=== PATIENT | female | born 1995 | race Caucasian/White ===

== ENCOUNTER 2023-11-20 16:44 | Emergency (ER) | payer MEDICAID, SELFPAY ==
[2023-11-20 16:47] VITALS: BP 134/87; PULSE 82; RESP 16; TEMP 36.4; O2SAT 98; BMI 29.3
--- NOTE | 2023-11-20 18:00 | CRLHL7_ITS ---
For Patients: As a result of the Century Cures Act, medical imaging exams and procedure reports are released immediately into your electronic medical record. You may view this report before your referring provider. If you have questions, please contact your health care provider. 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 No suspicious hepatic lesions. The gallbladder and biliary system are unremarkable. No splenic lesions. Small splenule in the left upper quadrant. The pancreas and bilateral adrenal glands are unremarkable. The kidneys, ureters, and bladder are unremarkable. Postsurgical changes of hysterectomy. The right ovary appears within normal limits with a few peripheral follicles and a dominant follicle measuring approximately 2.0 centimeters in greatest dimension. The left ovary is not well appreciated on this exam. There is no evidence of bowel obstruction or inflammation. The appendix is normal in appearance. Trace free fluid in the pelvis, likely physiologic. No free air. No abscess. No pathologically enlarged lymph nodes throughout the abdomen or pelvis. The vasculature is unremarkable. Soft tissue/musculoskeletal: Small fat containing umbilical hernia. The osseous structures are unremarkable. Impression: 1. Trace free fluid in the dependent aspect of the pelvis, likely physiologic; otherwise, no CT evidence of an acute process involving the abdomen or pelvis. 2. No evidence of bowel obstruction or inflammation. 3. Incidental findings as detailed above. Please note that all CT scans at this facility use dose modulation, iterative reconstruction, and/or weight-based dosing when appropriate to reduce radiation dose to as low as reasonably achievable. Dictated by Jesus Levy MD @ 11/20/2023 8:08:12 PM (Electronically Signed)
--- NOTE | 2023-11-20 18:01 | ED.ABDPAIN ---
HPI - Abdominal Pain General Chief Complaint: Abdominal Pain Stated Complaint: stomach/chest pain Time Seen by Provider: 11/20/23 16:47 History of Present Illness HPI narrative: This 28-year-old female comes in reporting abdominal pain that has been present over the past 2 or 3 weeks but worse over the past 2-3 days. She has history of surgeries to her abdomen. She states that she has a [id number] child in there were complications after the delivery where she needed AD and C. This cause some problem somehow also to where she ended up having a hysterectomy. 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 She did have 1 ovary removed in 1 of the surgeries. Her last surgery was a couple months ago. She has not been taking any medicine for pain. She does not report any fevers, dysuria, altered bowel function. She does have some nausea but no vomiting. She states that the pain is rather constant. She ranks the pain at 7 or 8/10 in severity. Related Data Home Medications ?Medication ?Instructions ?Recorded ?Confirmed No Known Home Medications 11/20/23 11/20/23 Allergies Allergy/AdvReac Type Severity Reaction Status Date / Time No Known Drug Allergies Allergy Verified 11/20/23 16:52 Review of Systems Status of ROS Reports: 10 or more systems reviewed and unremarkable except as noted in History and below Narrative Constitutional: No fevers, no weight gain or loss. Eyes: No discharge. No vision changes. HENT: No congestion, no sore throat, no ear pain. Cardiovascular: No chest pain, no palpitations. Respiratory: No shortness of breath, no wheezes, no cough. Gastrointestinal: No abdominal pain as described above. vomiting, no diarrhea. Genitourinary: No dysuria, no hematuria. Musculoskeletal: Normal range of motion. Skin: No rashes, no pruritis. Neurological: No dizziness, weakness, sensory change, speech change. Endo/Heme/Allergies: No bruising or bleeding. No polydipsia. Pysch: no suicidality, no anxiety, no insomnia. All other systems reviewed and are negative. PFSH PFSH Social History Smoking Status: Unknown if ever smoked Do you use any of these nicotine containing products: None How often do you have a drink containing alcohol: never How often do you have six or more drinks on one occasion: Never AUDIT-C Alcohol total score: 0 Non-prescribed substance use: denies use Exam Narrative: Exam Narrative: Constitutional: Well-developed, well-nourished, no acute distress. HEENT: Normocephalic, atraumatic. Neck: Normal range of motion. Nontender. Supple. Heart: Regular. No murmurs. Normal rate. Intact distal pulses. Lungs: Clear to auscultation. No chest discomfort. No wheezes, rhonchi, or rales. Abdomen: Normal bowel sounds. Tenderness localized in the left mid abdomen. Her pain radiates up toward her left chest when taking a deep breath. Mild rebound tenderness. Genitalia: Deferred. Back: No midline tenderness. Normal range of motion. Extremities: Normal range of motion. No injury. Skin: Intact. No rash. Warm. No erythema or pallor. Neurologic: No altered sensation. No weakness. Alert and oriented. Psychiatric: No suicidality. No anxiety or depression. No insomnia. Nursing notes and vitals signs are reviewed. Const: Vital Signs, click to edit/add: Vital Signs - 24 hr 11/20/23 16:47 Temperature 97.5 F L Pulse Rate [Pulse Oximeter] 82 Respiratory Rate 16 Blood Pressure [Ri t Upper Arm] 134/87 Pulse Oximetry 98 Oxygen Delivery Me thod Room Air Course Vital Signs Vital signs: Initial Vital Signs Temperature 97.5 F L 11/20/23 16:47 Temperature Source Temporal Artery Scan 11/20/23 16:47 Pulse Rate 82 11/20/23 16:47 Pulse Rhythm Regular 11/20/23 16:47 Pulse Strength 3+ Normal 11/20/23 16:47 Respiratory Rate 16 11/20/23 16:47 Blood Pressure 134/87 11/20/23 16:47 Blood Pressure Mean 102 11/20/23 16:47 Blood Pressure Position Sitting 11/20/23 16:47 Pulse Oximetry 98 11/20/23 16:47 Oxygen Delivery Method Room Air 11/20/23 16:47 Vital Signs Temperature 97.5 F L 11/20/23 16:47 Pulse Rate 82 11/20/23 16:47 Respiratory Rate 16 11/20/23 16:47 Blood Pressure 134/87 11/20/23 16:47 Pulse Oximetry 98 11/20/23 16:47 Oxygen Delivery Method Room Air 11/20/23 16:47 Temperature 97.5 F L 11/20/23 16:47 Pulse Rate 82 11/20/23 16:47 Respiratory Rate 16 11/20/23 16:47 Blood Pressure 134/87 11/20/23 16:47 Pulse Oximetry 98 11/20/23 16:47 Oxygen Delivery Method Room Air 11/20/23 16:47 Medications Administered Medications: Discontinued Medications Generic Name Dose Route Start Last Admin Trade Name Wyatt PRN Reason Stop Dose Admin Ketorolac Tromethamine 15 mg 11/20/23 18:00 11/20/23 18:15 Ketorolac 30 Mg/Ml Inj IVP 11/20/23 18:01 15 mg ONCE ONE Administration Ondansetron HCl 4 mg 11/20/23 18:00 11/20/23 18:16 Ondansetron 2 Mg/Ml Inj IVP 11/20/23 18:01 4 mg ONCE ONE Administration MDM - Abdominal Pain MDM Narrative Medical decision making narrative: This patient comes in with worsening abdominal pain and has a surgical history as described above. I did look with bedside ultrasound and then also obtained images through CT scan of abdomen and pelvis with IV contrast. All these results returned with normal findings along with normal blood tests. 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 This may be what is causing her pain currently again. The patient is okay to be discharged home and plans to follow-up with her primary providers. I did provide [employer] as for Zofran, Toradol, and Carlton. Lab Data Labs: Lab Results 11/20/23 Range/Units 18:14 WBC 8.13 (4.50-11.00) K/uL RBC 4.41 (4.00-5.20) m/uL Hgb 13.0 (12.0-16.0) gm/dL Hct 39.7 (33.0-51.0) % MCV 90 (80-100) fL MCH 30 (26-34) pg MCHC 33 (32-36) gm/dL RDW Coeff of Susy 12.8 (11.5-15.5) % Plt Count 238 (140-440) K/uL Neut % (Auto) 67.4 (42.0-72.0) % Lymph % (Auto) 25.1 (20-44) % Nye % (Auto) 6.0 (0.0-11.0) % Eos % (Auto) 1.2 (0.0-7.0) % Baso % (Auto) 0.2 (0.0-3.0) % Neut # (Auto) 5.47 (1.7-7.0) K/uL Lymph # (Auto) 2.04 (0.90-2.90) K/uL Nye # (Auto) 0.50 (0.00-0.90) K/UL Eos # (Auto) 0.10 (0.00-0.50) K/uL Baso # (Auto) 0.02 (0.00-0.30) K/uL Abs Immat Gran (auto) 0.01 (0.00-0.30) K/uL Imm/Tot Granulo (auto) 0.1 % Sodium 138 (135-149) mmol/L Potassium 3.7 (3.6-5.1) mmol/L Chloride 108 (96-114) mmol/L Carbon Dioxide 21 (20-32) mmol/L Anion Gap 9 (7-15) mEq/L BUN 10 (5-24) mg/dL Creatinine 0.5 (0.5-1.5) mg/dL Estimated Creat Clear 162.90 Estimated GFR 131 ml/min Glucose 94 (60-115) mg/dL Calcium 8.9 (8.4-10.6) mg/dL Imaging Data CT scan - abdomen: Radiologist's impression: 1. Trace free fluid in the dependent aspect of the pelvis, likely physiologic; otherwise, no CT evidence of an acute process involving the abdomen or pelvis. 2. No evidence of bowel obstruction or inflammation. 3. Incidental findings as detailed above. Discharge Plan Discharge Clinical Impression: Abdominal pain Patient Disposition: Home, Self-Care Condition: Stable Additional Instructions: Take medication as needed and indicated. Follow-up with primary physicians. Return if worsening. Prescriptions: No Action No Known Home Medications Follow Up/Referrals: Provider,Not a Local [Primary Care Provider] - Stand Alone Forms: [employer] Info Instructions Procedures Ultrasound Biliary exam #1: Anatomical areas examined: gallbladder, long and short axis and common bile duct Indications: RUQ/epigastric pain Exam type: limited abdominal ultrasound; RUQ Impression: normal exam Description/Findings: Screening ultrasound of the upper abdomen shows no abnormal findings.
[2023-11-20] MEDS: KETOROLAC 30 MG/ML inj 15 MG IVP (18:15)
[2023-11-20] MEDS: ONDANSETRON 2 MG/ML inj 4 MG IVP (18:16)
[2023-11-20 18:20] LABS: Basophils Absolute Auto 0.02 K/uL (0.00-0.30); Basophils Percent Auto 0.2 % (0.0-3.0); Eosinophils Percent Auto 1.2 % (0.0-7.0); Hematocrit 39.7 % (33.0-51.0); Immature Granulocytes Abs Auto 0.01 K/uL (0.00-0.30); Immature Granulocytes Pct Auto 0.1 %; Lymphocytes Absolute Auto 2.04 K/uL (0.90-2.90); Lymphocytes Percent Auto 25.1 % (20-44); Mean Corpuscular HGB Conc 33 gm/dL (32-36); Mean Corpuscular Hemoglobin 30 pg (26-34); Mean Corpuscular Volume 90 fL (80-100); Neutrophils Absolute Auto 5.47 K/uL (1.7-7.0); Neutrophils Percent Auto 67.4 % (42.0-72.0); Platelet Count* 238 K/uL (140-440); RDW Coefficient of Variation % 12.8 % (11.5-15.5); Red Blood Count 4.41 m/uL (4.00-5.20); Slide Review Reflex No; White Blood Count* 8.13 K/uL (4.50-11.00)
[2023-11-20 18:32] LABS: Chloride* 108 mmol/L (96-114); Potassium* 3.7 mmol/L (3.6-5.1); Sodium* 138 mmol/L (135-149)
[2023-11-20 18:35] LABS: Anion Gap 9 mEq/L (7-15); Blood Urea Nitrogen* 10 mg/dL (5-24); Carbon Dioxide* 21 mmol/L (20-32); Creatinine* 0.5 mg/dL (0.5-1.5); Estimated Glomerular Filt Rate 131 ml/min; Glucose* 94 mg/dL (60-115)
[2023-11-20 18:36] LABS: Calcium* 8.9 mg/dL (8.4-10.6)
== END 2023-11-20 20:36 | disposition home or self-care (01) ==
PROVIDERS: Emergency Provider Emergency Medicine Emergency Medical Services
DX: R10.12 Left upper quadrant pain (principal)
CPT/HCPCS: 36415; 74177; 76705; 80048; 85025; 96374; 96375; 99283; 99284; J1885; J2405; Q9967

== ENCOUNTER 2024-04-12 06:10 | Emergency (ER) | payer MEDICAID, SELFPAY ==
[2024-04-12 06:22] VITALS: BP 143/90; PULSE 92; RESP 16; TEMP 36.8; O2SAT 97; BMI 29.8
[2024-04-12 06:40] LABS: Appearance Urine Clear (Clear); Bilirubin Urine Negative (Negative); Blood Urine Negative (Negative); Color Urine Yellow (Yellow); Glucose Urine Negative (Negative); Ketones Urine Trace (Negative); Leukocyte Esterase Urine Negative (Negative); Nitrite Urine Negative (Negative); Protein Urine Negative (Negative); Specific Gravity Urine >= 1.030 (1.000-1.030); Urobilinogen Urine 0.2 (0.2-1.0)
--- NOTE | 2024-04-12 07:01 | CRLHL7_ITS ---
For Patients: As a result of the Century Cures Act, medical imaging exams and procedure reports are released immediately into your electronic medical record. You may view this report before your referring provider. If you have questions, please contact your health care provider. INDICATION: Right lower quadrant pain, extensive Gyne surgical history TECHNIQUE: CT abdomen and pelvis acquired with IV contrast. Isovue 370 contrast was administered intravenously. COMPARISON: None. FINDINGS: The visualized portions of the lung bases are clear. The liver, spleen, pancreas and adrenal glands are unremarkable. The gallbladder is nondistended. The kidneys enhance symmetrically without hydronephrosis. The bladder is partially distended and unremarkable. There are no dilated loops of small bowel to suggest obstruction. The appendix is normal. There is trace free fluid within the pelvis. The uterus is surgically absent. There are multiple small cysts within the right ovary with mild peripheral enhancement of 1 of the cysts which may represent the corpus luteum cyst versus hemorrhagic cyst. Overall the appearance of the right ovary appears relatively similar to the prior exam. Bones are unremarkable. IMPRESSION: Multiple small right ovarian cysts, 1 which demonstrates mild peripheral enhancement, suggestive of either a corpus luteum cyst or a small hemorrhagic cyst. Trace amount of free fluid within the pelvis. Findings could be better characterized with pelvic ultrasound, however the right ovary may be difficult to visualize given the location and the surrounding bowel. Please note that all CT scans at this facility use dose modulation, iterative reconstruction, and/or weight-based dosing when appropriate to reduce radiation dose to as low as reasonably achievable. Dictated by Suzanna Lindsey MD @ 04/12/2024 8:06:38 AM (Electronically Signed)
--- NOTE | 2024-04-12 07:02 | ED_ITS ---
HPI - General Adult General Chief complaint: Urogenital Problems, Female Stated complaint: pelvic pain,vaginal bleeding Time Seen by Provider: 04/12/24 06:33 Source: patient Mode of arrival: ambulatory Limitations: no limitations History of Present Illness HPI narrative: 29-year-old female presents as a new patient to the emergency department in the wee hours on a weekend for evaluation of worse than usual and slightly different pelvic pain. Patient has had extensive pelvic pain since she had a hysterectomy the year and half ago. It sounds like it was quite traumatic as it was 2 weeks , she had had a failed D& C. From what I can gather from her story am suspecting that it was a endometritis. It sounds as though she has had extensive Gyne consult and multiple exploratory laparotomies for lysis of adhesions. She reports 7 total surgeries in the past year and half. No fevers. No new trauma or injury. Pain is different than usual in located mainly in the right lower quadrant and tracking down the right inguinal area. No dysuria, no hematuria. Thinks that she had a little bit of vaginal bleeding, scant in the last few days and noticed left greater than right labial swelling. No history of kidney stones. Reports that she has also seen a pain clinic. It sounds like she had failed trials of gabapentin but I can not tell if she has been on Lyrica, amitriptyline, other treatments. She does use Tylenol and ibuprofen frequently. It sounds like she was also on some hormone replacement therapy at some point but it was stopped. Again, I do not have access to those records. When she called the overnight provider line, they requested that she present to any emergency department to have the vaginal cuff examined. She has had 3 prior vaginal deliveries. Denies history of bowel obstructions. No nausea vomiting, diarrhea or bloody stools. No recent intercourse in the last few days. Alludes that she thinks they attempted about 10 days ago but it was painful. Past medical history notable for asthma, pelvic pain syndrome. Only current medications are albuterol and sumatriptan p.r.n., not regularly taking any medication daily. Does report often use Tylenol and ibuprofen. Allergies to avocado doxycycline and hydrocodone as well as certain nuts. Reactions are unknown by me. ROS is notable for the pelvic and vaginal pain as described above, otherwise denies new changes times 12 systems. Related Data Home Medications ?Medication ?Instructions ?Recorded ?Confirmed albuterol sulfate 90 mcg/actuation 2 puff inhalation Q4H PRN dyspnea 04/11/24 04/11/24 aerosol inhaler (Ventolin HFA) sumatriptan succinate 25 mg tablet mg PO 04/11/24 04/11/24 Allergies Allergy/AdvReac Type Severity Reaction Status Date / Time avocado Allergy Verified 04/11/24 09:05 doxycycline Allergy Verified 04/11/24 09:05 hydrocodone Allergy Verified 04/11/24 09:05 nuts Allergy Uncoded 04/11/24 09:05 [facility] Social History Smoking Status: Never smoker Do you use any of these nicotine containing products: None Second hand tobacco smoke exposure: No How often do you have a drink containing alcohol: never How often do you have six or more drinks on one occasion: Never AUDIT-C Alcohol total score: 0 Non-prescribed substance use: denies use service: No Exam Const: Vital Signs, click to edit/add: Vital Signs - 24 hr 04/12/24 06:22 Temperature 98.2 F Pulse Rate [Pulse Oximeter] 92 Respiratory Rate 16 Blood Pressure [Ri ght Upper Arm] 143/90 H Pulse Oximetry 97 Oxygen Delivery Me thod Room Air Documenting provider has reviewed patient's vital signs: yes Common normals: no apparent distress General appearance: cooperative and well kempt Other: Good historian. HENMT: Common normals: normocephalic Head and scalp: normocephalic Face and sinus: normal facial exam Mouth: oral and palatal mucosa normal Throat: posterior oropharynx normal Eye: Common normals: conjunctivae normal General eye: normal appearance of both eyes Conjunctiva: conjunctiva(e) normal Neck & C-Spine: Common normals: full ROM and no lymphadenopathy Resp: Common normals: normal respiratory effort, no use of accessory muscles and clear to auscultation bilaterally Effort & inspection: able to speak in complete sentences Auscultation: clear to auscultation bilaterally Cardio: Common normals: regular rate, regular rhythm, S1 normal heart sound, S2 normal heart sound and no murmurs Rate: regular rate Rhythm: regular rhythm Heart sounds: S1 normal and S2 normal GI: Common normals: Normal to inspection, nondistended, normoactive bowel sounds present, soft to palpation, no hepatosplenomegaly and no masses Palpation: soft and no hepatosplenomegaly Other: Tender to palpation of right lower quadrant and right inguinal area. No obvious hernia. : Other: Normal appearing external genitalia, no swelling is appreciated. Labia are very symmetric. Patient is very tender to any palpation around vaginal opening. Even with the smallest speculum, gently inserted at the introitus, she cringes in pain. There does not appear to be any abnormality of the mucosa. Certainly no bruising, bleeding or trauma. Slowly and gently, I do advanced a speculum an look at the vaginal barraza all the way up to the cuff which is healed and sealed without complication. No bleeding, bruising or abnormality noted at this area. Examination of the inner labia does not show any abnormal swelling, she is tender to touch in all areas but seems diffuse and does not worsen with deep palpation. Extremity: Common normals: normal to inspection, normal capillary refill and no pedal edema Psych: Appearance: well kempt Attitude: engaged Activity/motor behavior: appropriate eye contact Insight: insight good Judgement: judgment good Skin: Common normals: no rashes or lesions noted General skin exam: no rashes or lesions noted Course Course ED Course: 29-year-old female with extensive pelvic surgeries presenting with right lower quadrant pain today. Counseled that my differential diagnosis on her exam really does localize the pain towards that right ovary, appendix, inguinal canal area. Differential diagnosis includes appendicitis, ovarian cyst versus torsion, pelvic adhesions, internal hernia, bowel obstruction, pelvic abscess, colitis, enteritis, amongst others. Patient does get a little frustrated with my discussion of this rationale as she says, they always look for appendicitis and it never is?. I did let her know that is the number gin see department provider in the wee hours on the weekend, this really is all I can offer for management. Her full service supervisor wanted the cuff examined and I do feel confident that that has been accomplished today. She certainly does not have to go through with the CT scan but with her focal tenderness I am concerned. I let her know that if she were my sister I would proceed with the exam. I do not have access to those [facility] records to compare her previous exams and if she is telling me that this pain is different and out of character for her, I think that that potentially justifies reexamination. We discussed pain management, I recommended Toradol. She says she has had some limited success with that in the past. Will order this IV. We spent some additional time talking about how there are additional options for treatment of chronic pain. I did let her know that it is unusual in my experience that someone going in for repeat lysis of adhesions is successful after multiple attempts. A full service supervisor would certainly be a much better resource for this than myself. I did let her know the limitations of what I can provide in terms of diagnostic workup today and she was understanding of this. She does give verbal consent to proceeding with labs and CT. Reevaluation(s) Time of Reevaluation #1: 08:20 Reevaluation #1: Patient does not notice significant improvement in her pain from the Toradol. Reviewed labs which are all reassuring and reviewed the CT which does show a tiny ruptured right ovarian cyst as well as some constipation but no other significant abnormality. I do think the ovarian cyst best describes her symptoms the constipation could certainly contribute especially with her large amount of pelvic adhesions. I do think that this is more of a flare-up of chronic pain rather than a new acute process today. Discussed this with her. She was understanding of my interpretation and results. We discussed alarm symptoms that would warrant ED presentation such as high fevers, bloody stools, persistent vomiting as indications to come back to the ED. She will need to follow up with her primary gynecology team for next steps in management. Okay to continue the Tylenol and ibuprofen in the interim. Will be discharged home. No restrictions. Written instructions provided, all questions answered. Vital Signs Vital signs: Initial Vital Signs Temperature 98.2 F 04/12/24 06:22 Temperature Source Temporal Artery Scan 04/12/24 06:22 Pulse Rate 92 04/12/24 06:22 Pulse Rhythm Regular 04/12/24 06:22 Respiratory Rate 16 04/12/24 06:22 Blood Pressure 143/90 H 04/12/24 06:22 Blood Pressure Mean 107 H 04/12/24 06:22 Blood Pressure Position Supine 04/12/24 06:22 Pulse Oximetry 97 04/12/24 06:22 Oxygen Delivery Method Room Air 04/12/24 06:22 Vital Signs Temperature 98.2 F 04/12/24 06:22 Pulse Rate 92 04/12/24 06:22 Respiratory Rate 16 04/12/24 06:22 Blood Pressure 143/90 H 04/12/24 06:22 Pulse Oximetry 97 04/12/24 06:22 Oxygen Delivery Method Room Air 04/12/24 06:22 Temperature 98.2 F 04/12/24 06:22 Pulse Rate 92 04/12/24 06:22 Respiratory Rate 16 04/12/24 06:22 Blood Pressure 143/90 H 04/12/24 06:22 Pulse Oximetry 97 04/12/24 06:22 Oxygen Delivery Method Room Air 04/12/24 06:22 Medications Administered Medications: Discontinued Medications Generic Name Dose Route Start Last Admin Trade Name Freq PRN Reason Stop Dose Admin Ketorolac Tromethamine 15 mg 04/12/24 07:01 04/12/24 07:28 Ketorolac 15 Mg/Ml Inj IVP 04/12/24 07:02 15 mg ONCE ONE Administration Medical Decision Making Lab Data Lab results reviewed: Yes I reviewed the patient's lab results Lab results narrative: Very reassuring Labs: Lab Results 04/12/24 04/12/24 Range/Units 06:25 07:15 WBC 11.75 H (4.50-11.00) K/uL RBC 4.36 (4.00-5.20) m/uL Hgb 12.9 (12.0-16.0) gm/dL Hct 38.4 (33.0-51.0) % MCV 88 (80-100) fL MCH 30 (26-34) pg MCHC 34 (32-36) gm/dL RDW Coeff of Susy 12.5 (11.5-15.5) % Plt Count 283 (140-440) K/uL Neut % (Auto) 72.5 H (42.0-72.0) % Lymph % (Auto) 21.8 (20-44) % [place] % (Auto) 5.1 (0.0-11.0) % Eos % (Auto) 0.2 (0.0-7.0) % Baso % (Auto) 0.2 (0.0-3.0) % Neut # (Auto) 8.50 H (1.7-7.0) K/uL Lymph # (Auto) 2.60 (0.90-2.90) K/uL [place] # (Auto) 0.60 (0.00-0.90) K/UL Eos # (Auto) 0.00 (0.00-0.50) K/uL Baso # (Auto) 0.00 (0.00-0.30) K/uL Abs Immat Gran (auto) 0.00 (0.00-0.30) K/uL Imm/Tot Granulo (auto) 0.2 % Sodium 137 (135-149) mmol/L Potassium 3.6 (3.6-5.1) mmol/L Chloride 105 (96-114) mmol/L Carbon Dioxide 21 (20-32) mmol/L Anion Gap 11 (7-15) mEq/L BUN 10 (5-24) mg/dL Creatinine 0.5 (0.5-1.5) mg/dL Estimated Creat Clear 161.44 Estimated GFR 130 ml/min Glucose 98 (60-115) mg/dL Calcium 9.4 (8.4-10.6) mg/dL C-Reactive Protein < 0.5 L (0.5-1.0) mg/dL Urine Color Yellow (Yellow) Urine Appearance Clear (Clear) Urine pH 6.0 (5.0-8.5) Ur Specific [place] >= 1.030 (1.000-1.030) Urine Protein Negative (Negative) Urine Glucose (UA) Negative (Negative) Urine Ketones Trace A (Negative) Urine Blood Negative (Negative) Urine Nitrite Negative (Negative) Urine Bilirubin Negative (Negative) Urine Urobilinogen 0.2 (0.2-1.0) Ur Leukocyte Esterase Negative (Negative) Imaging Data CT scan - abdomen: Attestation: I have reviewed the pertinent imaging results. My impression: Mild constipation and also heterogeneous appearing right ovary. No obvious kidney stone, fluid collections, abscess, appendicitis. Radiologist's impression: Final Report: INDICATION: Right lower quadrant pain, extensive Gyne surgical history TECHNIQUE: CT abdomen and pelvis acquired with IV contrast. Isovue 370 contrast was adm inistered intravenously. COMPARISON: None. FINDINGS: The visualized portions of the lung bases are clear. The liver, spleen, pancreas and adrenal glands are unremarkable. The gallbladder is nondistended. The kidneys enhance symmetrically without hydronephrosis. The bladder is partially distended and unremarkable. There are no dilated loops of small bowel to suggest obstruction. The appendix i s normal. There is trace free fluid within the pelvis. The uterus is surgically absent. There are multiple small cysts within the right ovary with mild peripheral enhancement of 1 of the cysts which may represent the corpus luteum cyst versus hemorrhagic cyst. Overall the appearance of the right ovary appears relatively similar to the prior exam. Bones are unremarkable. IMPRESSION: Multiple small right ovarian cysts, 1 which demonstrates mild peripheral enhancement, suggestive of either a corpus luteum cyst or a small hemorrhagic cyst. Trace amount of free fluid within the pelvis. Findings could be better characterized with pelvic ultrasound, however the right ovary may be difficult to visualize given the location and the surrounding bowel. Please note that all CT scans at this facility use dose modulation, iterative reconstruction, and/or weight-based dosing when appropriate to reduce radiation dose to as low as reasonably achievable. Dictated by Suzanna Lindsey MD @ 04/12/2024 8:06:38 AM Discharge Plan Discharge Clinical Impression: Chronic female pelvic pain, Cyst of right ovary, Constipation Instructions: Pelvic Pain in Women (ED) Additional Instructions: As we discussed, there thankfully does not seem to be any sign of appendicitis, bowel obstruction, pelvic infection or other abnormality today. There are no kidney stones or other abnormalities. Your blood work and urinalysis are reassuring. There were a couple of minor findings that certainly could be contributing to your pain today. You do have a tiny ovarian cyst on the right ovary that looks like it has recently had a small rupture and could be contributing to pain in that area. It is very small and does not require surgery or follow-up. He also do seem to have some constipation. The constipation can certainly be putting extra pressure on the nerves. As we discussed, I recommend a dose of MiraLax every 8 hours until your stools are liquid and then continuing on a tsp every day to every other day to keep things very soft. With her history of adhesions, hard stools will impact your pain. Please know that there are additional treatment options for chronic pelvic pain. There also providers that specialize in this. A referral can be placed by your full service supervisor if the 2 of you decide this is right for you. I do not have access to all of your records to give better recommendations. Please continue the Tylenol and ibuprofen as you are doing. As we discussed, if there is high fever, persistent vomiting, bloody stools, fevers or other abnormalities accompanying your pain that are alarming, please come back to emergency department. I would make a follow-up with her primary gynecology team in a week or so to recheck on how things are going and to determine the next steps in managing her chronic pelvic pain. Activity Level: No Restrictions Discharge Diet: Regular Prescriptions: No Action sumatriptan succinate 25 mg tablet PO albuterol sulfate [Ventolin HFA] 90 mcg/actuation HFA aerosol inhaler 2 puff inhalation Q4H PRN (Reason: dyspnea) Follow Up/Referrals: Provider,Not a Local [Primary Care Provider] - Stand Alone Forms: [employer] Info Instructions
--- OUTSIDE RECORDS SUMMARY | 2024-04-12 07:08 | XMS_ITS | Clinical Summary ---
Author Organization [place] Address [address] [facility] [place] [address] Care Team Providers Care Traveling Construction Superintendent Name Role Phone Robbie Lee MD Primary Care Provider [phone] Imani Bennett APRN SALES SUPERINTENDENT Unavailable + Allergies Active Allergy Reactions Criticality Noted Date Comments Avocado Itching 04/05/2023 Doxycycline Nausea and Vomiting 04/18/2020 Hydrocodone Nausea,Rash Low 12/09/2018 And dizziness. Tolerates morphine, fentanyl, dilaudid, and oxycodone Nuts Itching 04/05/2023 Medications PROAIR HFA 108 (90 Base) MCG/ACT inhalerIndication s:Mild intermittent asthma without complication INHALE 2 PUFFS INTO THE LUNGS EVERY 6 HOURS NEEDED FOR SHORTNESS OF BREATH OR DIFFICULT BREATHING OR WHEEZING 8.5 g 1 2 Active acetaminophen (TYLENOL) 500 MG tablet Take 500-1,000 mg by mouth every 6 hours as needed for mild pain Active ipratropium-albut suki (COMBIVENT RESPIMAT) 20-100 MCG/ACT inhaler Inhale 1 puff into the lungs daily Active ondansetron (ZOFRAN ODT) 4 MG ODT tabIndications:Pe lvic pain,Endometriosi s Take 1 tablet (4 mg) by mouth every 8 hours as needed for nausea 4 tablet 3 Active vitamin D2 (ERGOCALCIFEROL) 67233 units (1250 mcg) capsuleIndication s:Recurrent major depressive disorder, in full remission (H),Other fatigue,Multiple joint pain,Vitamin D deficiency Take 1 capsule (50,000 Units) by mouth once a week 12 capsule 3 4 Active Active Problems Problem Noted Date Diagnosed Date Vaginal bleeding 07/24/2022 Post-operative complication 07/24/2022 Pelvic pain 07/24/2022 Hematoma of uterus, initial encounter 07/24/2022 Labor and delivery, indication for care 07/04/19 23 Endometriosis - s/p D&C 2015 after first child and multiple tubal cystectomies. 09/17/2018 Menstrual migraine without s tatus migrainosus, not intractable 07/09/2016 Enlarged thyroid gland 07/09/2016 depression 10/21/2014 Esophageal reflux 08/09/2014 Recurrent major depressive disorder, in full rem ission 04/09/2013 Mild intermittent asthma without complication Ovarian cyst 04/10/2011 Insomnia 08/16/2009 OCD (obsessive compulsive disorder) 08/12/2008 Resolved Problems Problem Noted Date Diagnosed Date Resolved Date Arnold-Chiari malformation 10/19/2021 0 01/18/2023 Anemia, unspecified 05/02/2018 04/11/20 20 Supervision of low-risk 04/30/2018 04/11/2020 Delivery of 04/30/2018 04/11/20 20 Encounter for triage in patient 04/27/2018 04/30/2018 Indication for care in labor or delivery 04/11/2018 05/02/2018 Pruritus 04/07/2018 04/11/2020 Encounter for triage in patient 03/13/2018 04/04/2018 Indication for care in labor or delivery 01/23/2018 02/11/2018 Encounter for triage in patient 11/19/2017 02/11/2018 Encounter for supervision of other normal in third trimester 11/18/2017 04/11/2020 Encounter for initial prescr iption of vaginal ring hormonal contraceptive 07/09/2016 11/18/2017 Contraceptive management 11/16/2014 Pyelonephritis 09/27/2014 10/15/2014 Indication for care in labor or delivery 09/18/2014 11/22/2014 Labor and delivery, indication for care 09/05/2014 09/20/2014 Indication for care in labor and delivery, antepartum 08/14/2014 09/20/2014 Encounter for triage in patient 08/11/2014 09/20/2014 Concussion without loss of consciousness 06/24/2014 07/11/2015 Low back pain 06/24/2014 06/24/2014 Neck pain 06/24/2014 10/21/2015 Headache 06/24/2014 10/21/2015 Overview (03/04/2015): Problem list name updated by automated process. Provider to review Supervision of normal first 04/06/2014 10/15/2014 Recurrent major depression in remission 04/09/2013 05/02/2018 Major depressive disorder, s godwin episode, moderate 08/12/2008 04/09/2013 Encounters Date Type Department Care Team Description 03/04/2024 Travel 03/04/2024 MyC Medical Advice [address] [phone] Consuelo Cota PA-C Diarrhea 02/28/2024 2:45 PM CDT Lab [facility] [address] [place] [phone] Diarrhea of presumed infectious origin 02/28/2024 9:00 AM CDT Virtual Visit [address] [phone] Consuelo Cota PA-C Diarrhea of presumed infectious origin (Primary Dx) 02/28/2024 Travel 01/29/2024 8:00 AM CDT Office Visit [address] [phone] Imani Bennett APRN CNP Breast pain (Primary Dx); Rash; Nipple discharge; Recurrent major depressive disorder, in full remission (H); Other fatigue; Multiple joint pain; Vitamin D deficiency 01/29/2024 Travel from Last 3 Months Immunizations Name Administration Dates Next Due DTAP (<7y) 12/30/2000, 7,1995,08/28,1995 HIB (PRP-T) 1995,1995,1995 HPV 01/15/2013,07/19/2009,09/01/2007 HepB 1995,1995,1995 Influenza (IIV3) PF 02/05/2012,04/17/2010 Influenza Vaccine >6 months,quad, PF 04/11/2020, 04/22/2019,03/11/2018 MMR 01/10/2001,07/16/1996 Meningococcal ACWY (Menactra??) 02/05/2012,08/31 OPV, trivalent, live 01/10/2001,10/30/18 96,1995,05/31 Pneumococcal 23 valent 04/11/2020 TD,PF 7+ (Tenivac) 01/01/2007 TDAP (Adacel,Boostrix) 05/18/2022 TDAP Vaccine (Adacel) 03/11/2018 TDAP Vaccine (Boostrix) 08/09/2014,02/05/2012 Varicella Pt Report Hx of Varicella/Chicken Pox 1995 Family History Medical History Relation Comments Asthma Brother 2 Diabetes Cousin Anxiety Disorder Father Depression Father C.A.D. Maternal Grandfather Other Cancer Maternal Grandfather C.A.D. Maternal Grandmother C.A.D. Maternal Uncle Hypertension Mother Cerebrovascular Disease Paternal Grandmother Relation Status Comments Brother 1 Alive Brother 2 Cousin Father Alive Maternal Grandfather Alive Maternal Grandmother Alive Maternal Uncle Mother Alive Paternal Grandfather Alive Paternal Grandmother Son Alive Social History Tobacco Use Types Packs/Day Years Used Date Smoking Tobacco: Former Cigarettes Q uit: 2020 Smokeless Tobacco: Former Tobacco Cessation:Counseling Given: Not Answered Comments:dad smokes outside of house Alcohol Use Standard Drinks/Week Comments Not Currently 0 (1 standard drink = 0.6 oz pur e alcohol) PHQ-2 Answer Date Recorded PHQ-2 Score 1 02/28/2024 Wolcott Depression Scale Answer Date Recorded Last EPDS Total Score Not on file 07/08/2022 The thought of harming myself has occurred to me . Never 07/08/2022 Adolescent Education Answer Date Record ed Getting School Help Needed Not on file 02/22 Interpersonal Safety Answer Date Record ed Do you feel physically and e motionally safe where you currently live? Yes 01/29/2024 Within the past 12 months, h ave you been hit, slapped, kicked or otherwise physically hurt by someone? No 01/29/2024 Within the past 12 months, h ave you been humiliated or emotionally abused in other ways by your partner or ex-partner? No 01/29/2024 Comments No Sex and Gender Information Value Date Recorded Sex Assigned at Female 01/26/2020 10:31 AM CDT Legal Sex Female 4:42 AM ENDOSCOPY REGISTERED NURSE Gender Identity Female 01/26/2020 10:31 AM CDT Sexual Orientation Straight 01/26/2020 10 :31 AM CDT Last Filed Vital Signs Vital Sign Reading Time Taken Comments Blood Pressure 132/80 01/29/2024 8:07 AM CDT Pulse 98 01/29/2024 8:07 AM CDT Temperature 37.2 ??C (98.9 ??F) 01/29/2024 8:07 AM CD T Respiratory Rate 14 01/29/2024 8:07 AM CDT Oxygen Saturation 98% 01/29/2024 8:07 AM CDT Inhaled Oxygen Concentration - - Weight 85.7 kg (189 lb) 01/29/2024 8:07 AM CDT Height 170.2 cm (5' 7) 01/29/2024 8:07 AM CDT Body Mass Index 29.6 01/29/2024 8:07 AM CDT Plan of Treatment Health Maintenance Due Date Last Done Comments CT COLONOGRAPHY 1995 FIT 1995 FLEX SIG 1995 sDNA (Cologuard) 1995 YEARLY PREVENTIVE VISIT 02/04/2013 02/05/2012, 08/31 ASTHMA ACTION PLAN 11/18/2018 11/18/2017, 0 10/11/2016, 10/21/2015, Additional history exists Pneumococcal Vaccine: Pediatrics (0 to 5 Years) and At-Risk Patients (6 to 64 Years) (2 of 2 - PCV) 04/11/2021 04/11/2020 ANNUAL REVIEW OF HM ORDERS 01/11/202401/103, 11/20/2021, 08/23/2020 INFLUENZA VACCINE (#1) 2024 , 04/22/2019, 03/11/2018, Additional history exists ASTHMA CONTROL TEST 07/31/2024 01/29/2024, 07/16/2023, 01/10/2023, Additional history exists PHQ-9 08/27/2024 02/28/2024, 01/02, 07/16/2023, Additional history exists BMP 02/27/2025 02/28/2024, 01/02, 09/17/2023, Additional history exists ADVANCE CARE PLANNING 01/19/2028 01/18/2023, 018 COLONOSCOPY 04/23/2030 04/23/2023, 04/23/2023 COLORECTAL CANCER SCREENING 04/23/2030 DTAP/TDAP/TD IMMUNIZATION (10 - Td or Tdap) 05/18/2032 05/18/2022, 03/11/2018, 08/09/2014, Additional history exists RSV VACCINE (1 - 1-dose 75+ series) 2070 COVID-19 Vaccine ( season) 2112 Postponed from 02/02/2024 (Patient Declined) HEPATITIS B IMMUNIZATION Completed 996, 1995, 1995 MENINGITIS IMMUNIZATION Completed 02/05/2012, 08/31 HPV IMMUNIZATION Completed 01/15/2013, , 09/01/2007 MIGRAINE ACTION PLAN Completed 04/19/2013 DEPRESSION ACTION PLAN Completed 8, 10/17/2017, 10/11/2016, Additional history exists PAP Discontinued 07/03/2018, 07/3 , 04/12/2014 HEPATITIS C SCREENING Discontinued 12/18/2021 HIV SCREENING Completed 12/18/2021, 04/06/2014 CHLAMYDIA SCREENING Discontinued 09/17/2023, 01/30/2022, 12/18/2021, Additional history exists RSV MONOCLONAL ANTIBODY Aged Out No l onger eligible based on patient's age to complete this topic Procedures Procedure Name Priority Date/Time Associated Diagnosis Comments ENTERIC BACTERIA AND VIRUS PANEL BY PCR Routine 03/04/2024 9:40 AM CDT Diarrhea of presumed infectious origin C. DIFFICILE TOXIN B PCR WITH REFLEX TO C. DIFFICILE ANTIGEN AND TOXINS A/B EIA Routine 03/04/2024 9:40 AM CDT Diarrhea of presumed infectious origin BASIC METABOLIC PANEL Routine 02/28/2024 2:26 PM CDT Diarrhea of presumed infectious origin CBC WITH PLATELETS Routine 02/28/2024 2: 26 PM CDT Diarrhea of presumed infectious origin CBC WITH PLATELETS & DIFFERENTIAL Routine 01/29/2024 9:00 AM CDT Breast pain Nipple discharge EXTRA PURPLE TOP TUBE Routine 01/29/2024 9:00 AM CDT Breast pain Nipple discharge EXTRA GREEN TOP (LITHIUM HEPARIN) TUBE Routine 01/29/2024 9:00 AM CDT Breast pain Nipple discharge EXTRA RED TOP TUBE Routine 01/29/2024 9: 00 AM CDT Breast pain Nipple discharge EXTRA BLUE TOP TUBE Routine 01/29/2024 9 :00 AM CDT Breast pain Nipple discharge CBC WITH PLATELETS AND DIFFERENTIAL Routine 01/29/2024 9:00 AM CDT Breast pain Nipple discharge EXTRA TUBE Routine 01/29/2024 9:00 AM CDT Breast pain Nipple discharge CRP INFLAMMATION Routine 01/29/2024 9:00 AM CDT Breast pain Nipple discharge ERYTHROCYTE SEDIMENTATION RATE AUTO Routine 01/29/2024 9:00 AM CDT Breast pain Nipple discharge PARTIAL THROMBOPLASTIN TIME Routine 01/29/2024 9:00 AM CDT Breast pain Nipple discharge INR Routine 01/29/2024 9:00 AM CDT Breast pain Nipple discharge COMPREHENSIVE METABOLIC PANEL Routine 01/29/2024 9:00 AM CDT Breast pain Nipple discharge PROLACTIN Routine 01/29/2024 9:00 AM CDT Breast pain Nipple discharge 25 HYDROXYVITAMIN D2 & D3 Routine 01/29/2024 9:00 AM CDT Recurrent major depressive disorder, in full remission (H) Other fatigue Multiple joint pain Vitamin D deficiency CHLAMYDIA TRACHOMATIS/NEISSERIA GONORRHOEAE BY PCR STAT 09/17/2023 9:00 PM CDT COLONOSCOPY - HIM SCAN 12:00 AM ENDOSCOPY REGISTERED NURSE HIV ANTIGEN ANTIBODY COMBO Routine 12/18/2021 10:00 AM CDT HEPATITIS C ANTIBODY (EXTERNAL RESULT) Routine 12/18/2021 10:00 AM CDT PAP IMAGED THIN LAYER SCREEN Routine 07/03/2018 12:55 PM ENDOSCOPY REGISTERED NURSE Encounter for visit ASTHMA ACTION PLAN Routine 10/11/2016 12 :06 PM CDT from Last 3 Months or Most Recently Relevant to Health Maintenance Results * Enteric Bacteria and Virus Panel by BENJAMIN Stool (03/04/2024 9:40 AM CDT) Campylobacter species Negative Negative 03/04/2024 7:55 PM CDT [facility] Salmonella species Negative Negative 2023 7:55 PM CDT [facility] Vibrio species Negative Negative 03/04/2024 7:55 PM CDT [facility] Vibrio cholerae Negative Negative 7:55 PM CDT [facility] Yersinia enterocolitica Negative Negative 03/04/2024 7:55 PM CDT [facility] Enteropathogenic E. coli (EPEC) Negative Negative, NA 03/04/2024 7:55 PM CDT [facility] Shiga-like toxin-producing E. coli (STEC) Negative Negative 03/04/2024 7:55 PM CDT [facility] Shigella/Enteroinvas janell E. coli (EIEC) Negative Negative 03/04/2024 7:55 PM CDT [facility] Cryptosporidium species Negative Negative 03/04/2024 7:55 PM CDT [facility] Giardia lamblia Negative Negative 7:55 PM CDT [facility] Norovirus Gl/Gll Negative Negative 03/04/20 24 7:55 PM CDT [facility] Rotavirus A Negative Negative 03/04/2024 7:55 PM CDT [facility] Plesiomonas shigelloides Negative Negative 03/04/2024 7:55 PM CDT [facility] Enteroaggregative E. coli (EAEC) Negative Negative 03/04/2024 7:55 PM CDT [facility] Enterotoxigenic E. coli (ETEC) Negative Negative 03/04/2024 7:55 PM CDT [facility] E. coli O157 NA Negative, NA 03/04/2024 7:55 PM CDT [facility] Cyclospora cayetanensis Negative Negative 03/04/2024 7:55 PM CDT [facility] Entamoeba histolytica Negative Negative 03/04/2024 7:55 PM CDT [facility] Adenovirus F40/41 Negative Negative 024 7:55 PM CDT [facility] Astrovirus Negative Negative 03/04/2024 7:55 PM CDT [facility] Sapovirus Negative Negative 03/04/2024 7:55 PM CDT [facility] Stool RECTAL CONTENTS / Unknown Non-blood Collection / Unknown 03/04/2024 9:40 AM CDT 03/04/2024 12:00 PM CDT Narrative [facility] - 03/04/2024 7:55 PM CDT Assay performed using the FDA-cleared LocatelyArray GI Panel from [employer] ??A negative result should not rule out infection in patients with a probability for gastrointestinal infection. The assay does not test for all potential infectious agents of diarrheal disease. ??Positive results do not distinguish between a viable or replicating organism and the presence of a nonviable organism or nucleic acid, nor do they exclude the possibility of coinfection by organisms not in the panel. ??Results are intended to aid in the diagnosis of illness and are meant to be used in conjunction with other clinical findings. This test has been verified and is performed by the Infectious Diseases Diagnostic Laboratory at [facility]. This laboratory is certified under the Clinical Laboratory Improvement Amendments of 1988 (CLIA-88) as qualified to perform high complexity clinical laboratory testing. Consuelo DAVE-C LAB - MICRO GENERAL ORDERABLE S Final Result [facility] Inf. Diseases Diag. Lab [address] [facility] [place] [address] * C. difficile Toxin B PCR with reflex to C. difficile Antigen and Toxins A/B EIA (03/04/2024 9:40 AMCDT) [facility] C Difficile Toxin B by PCR Negative Negative 03/04/2024 6:32 PM CDT [facility] Comment:A negative result do es not exclude actual disease due to C. difficile and may be due to improper collection, handling and storage of the specimen or the number of organisms in the specimen is below the detection limit of the assay. Stool RECTAL CONTENTS / Unknown Non-blood Collection / Unknown 03/04/2024 9:40 AM CDT 03/04/2024 12:00 PM CDT [facility] - 03/04/2024 6:32 PM CDT The [employer] Urjaid Xpert C. difficile Assay, performed on the [employer] Instrument Systems, is a qualitative in vitro diagnostic test for rapid detection of toxin B gene sequences from unformed (liquid or soft) stool specimens collected from patients suspected of having Clostridioides difficile infection (CDI). The test utilizes automated real-time polymerase chain reaction (PCR) to detect toxin gene sequences associated with toxin producing C. difficile. The Xpert C. difficile Assay is intended as an aid in the diagnosis of CDI. Consuelo Cota PA-C LAB [employer] GENERAL ORDERABLE S Final Result [facility] Inf. Diseases Diag. Lab [address] [facility] [place] [address], [facility] * Basic metabolic panel (Ca, Cl, CO2, Creat, Gluc, K, Na, BUN) (02/28/2024 2:26 PM CDT) Sodium 137 135 - 145 mmol/L 02/29/2024 2:02 AM CDT [facility] Potassium 3.7 3.4 - 5.3 mmol/L 02/29/2024 2:02 AM CDT [facility] Chloride 105 98 - 107 mmol/L 02/29/2024 2:02 AM CDT [facility] Carbon Dioxide (CO2) 22 22 - 29 mmol/L 02/29/2024 2:02 AM CDT [facility] Anion Gap 10 7 - 15 mmol/L 02/29/2024 2:02 AM CDT [facility] Urea Nitrogen 14.0 6.0 - 20.0 mg/dL 02/29/2024 2:02 AM CDT [facility] Creatinine 0.69 0.51 - 0.95 mg/dL 02/29/2024 2:02 AM CDT [facility] GFR Estimate >90 >60 mL/min/1.7 3m2 02/29/2024 2:02 AM CDT [facility] Comment:eGFR calculated us2020 CKD-EPI equation. Calcium 9.2 8.8 - 10.4 mg/dL 02/29/2024 2:02 AM CDT [facility] Comment:Reference intervals for this test were updated on 12/17/2023 to reflect our healthy population more accurately. There may be differences in the flagging of prior results with similar values performed with this method. Those prior results can be interpreted in the context of the updated reference intervals. Glucose 82 70 - 99 mg/dL 02/29/2024 2:02 AM CDT [facility] Blood BLOOD SPECIMEN / Unknown Venipuncture / Unknown 02/28/2024 2:26 PM CDT 02/28/2024 2:26 PM CDT Consuelo Cota PA-C LAB - BLOOD ORDERABLES Final Result [facility] [place] [facility] [address] [facility], [address] [place] [address] * CBC with platelets (02/28/2024 2:26 PM CDT) WBC Count 5.4 4.0 - 11.0 10e3/uL 02/28/2024 2:28 PM CDT [facility] RBC Count 4.38 3.80 - 5.20 10e6/uL 02/28/2024 2:28 PM CDT [facility] Hemoglobin 13.1 11.7 - 15.7 g/dL 02/28/2024 2:28 PM CDT [facility] Hematocrit 39.0 35.0 - 47.0 % 02/28/2024 2:28 PM CDT [facility] MCV 89 78 - 100 fL 02/28/2024 2:28 PM CDT [facility] MCH 29.9 26.5 - 33.0 pg 02/28/2024 2:28 PM CDT [facility] MCHC 33.6 31.5 - 36.5 g/dL 02/28/2024 2:28 PM CDT [facility] RDW 13.0 10.0 - 15.0 % 02/28/2024 2:28 PM CDT [facility] Platelet Count 269 150 - 450 10e3/uL 02/28/2024 2:28 PM CDT [facility] Blood BLOOD SPECIMEN / Unknown Venipuncture / Unknown 02/28/2024 2:26 PM CDT 02/28/2024 2:26 PM CDT us Consuelo Cota PA-C LAB - BLOOD ORDERABLES Final Result [facility] [address] [place] [address] [facility] ([facility] room number, 1st floor of clinic) [place] [address], [facility] * Extra Purple Top Tube (01/29/2024 9:00 AM CDT) Hold Specimen JIC 01/29/2024 10:06 AM CDT [facility] Blood STRUCTURE OF RIGHT UPPER LIMB / Unknown Venipuncture / Unknown 01/29/2024 9:00 AM CDT 01/29/2024 9:01 AM CDT Imani Bennett APRN [facility] LAB - BLOOD ORDERA BLES Final Result Performing Organization Address City/Special Care Hospital/ZIP Co de Phone Number [facility] [address] [place] [address] Lab (no room number, 1st floor of [facility]) [place] [phone] * Extra Green Top ([place] Heparin) Tube (01/29/2024 9:00 AM CDT) Hold Specimen [facility] 01/29/2024 10:06 AM CDT [facility] Blood STRUCTURE OF RIGHT UPPER LIMB / Unknown Venipuncture / Unknown 01/29/2024 9:00 AM CDT 01/29/2024 9:01 AM CDT Imani Bennett APRN, CNP LAB - BLOOD ORDERA BLES Final Result Performing Organization Address [facility]/Special Care [facility]/ZIP Co de Phone Number LABORATORY [facility] [address] [place] [address] Lab (no room number, 1st floor of [facility]) [place] [phone] * Extra Red Top Tube (01/29/2024 9:00 AM CDT) Hold Specimen [facility] 01/29/2024 10:06 AM CDT [facility] Blood STRUCTURE OF RIGHT UPPER LIMB / Unknown Venipuncture / Unknown 01/29/2024 9:00 AM CDT 01/29/2024 9:02 AM CDT Imani Bennett APRN, CNP LAB - BLOOD ORDERA BLES Final Result Performing Organization Address City/[facility] Care [facility]/ZIP Co de Phone Number LABORATORY [facility] - [facility] [address] [place] [address] Lab (no room number, 1st floor of [facility]) [place] [phone] * Extra Blue Top Tube (01/29/2024 9:00 AM CDT) Hold Specimen [facility] 01/29/2024 10:06 AM CDT [facility] Blood STRUCTURE OF RIGHT UPPER LIMB / Unknown Venipuncture / Unknown 01/29/2024 9:00 AM CDT 01/29/2024 9:01 AM CDT Imani Bennett CARDER [employer]ANK[employer] SALES SUPERINTENDENT LAB - BLOOD ORDERA BLES Final Result [facility] - [facility] [address] [facility] Lab (no room number, 1st floor of clinic) [place] [address] * CBC with platelets and differential (01/29/2024 9:00 AM CDT) WBC Count 5.5 4.0 - 11.0 10e3/uL 01/29/2024 9:07 AM CDT [facility] RBC Count 4.42 3.80 - 5.20 10e6/uL 01/29/2024 9:07 AM CDT [facility] Hemoglobin 13.2 11.7 - 15.7 g/dL 01/29/2024 9:07 AM CDT [facility] Hematocrit 39.3 35.0 - 47.0 % 01/29/2024 9:07 AM CDT [facility] MCV 89 78 - 100 fL 01/29/2024 9:07 AM CDT [facility] MCH 29.9 26.5 - 33.0 pg 01/29/2024 9:07 AM CDT [facility] MCHC 33.6 31.5 - 36.5 g/dL 01/29/2024 9:07 AM CDT [facility] RDW 13.1 10.0 - 15.0 % 01/29/2024 9:07 AM CDT [facility] Platelet Count 270 150 - 450 10e3/uL 01/29/2024 9:07 AM CDT [facility] % Neutrophils 64 % 01/29/2024 9:07 AM CDT [facility] % Lymphocytes 29 % 01/29/2024 9:07 AM CDT [facility] % Monocytes 5 % 01/29/2024 9:07 AM CDT [facility] % Eosinophils 2 % 01/29/2024 9:07 AM CDT [facility] % Basophils 0 % 01/29/2024 9:07 AM CDT [facility] % Immature Granulocytes 0 % 01/29/2024 9:07 AM CDT [facility] Absolute Neutrophils 3.5 1.6 - 8.3 10e3/uL 01/29/2024 9:07 AM CDT [facility] Absolute Lymphocytes 1.6 0.8 - 5.3 10e3/uL 01/29/2024 9:07 AM CDT [facility] Absolute Monocytes 0.3 0.0 - 1.3 10e3/uL 01/29/2024 9:07 AM CDT [facility] Absolute Eosinophils 0.1 0.0 - 0.7 10e3/uL 01/29/2024 9:07 AM CDT [facility] Absolute Basophils 0.0 0.0 - 0.2 10e3/uL 01/29/2024 9:07 AM CDT [facility] Absolute Immature Granulocytes 0.0 <=0.4 10e3/uL 01/29/2024 9:07 AM CDT [facility] Blood STRUCTURE OF RIGHT UPPER LIMB / Unknown Venipuncture / Unknown 01/29/2024 9:00 AM CDT 01/29/2024 9:01 AM CDT Imani Bennett APRN SALES SUPERINTENDENT LAB - BLOOD ORDERA BLES Final Result [facility] - [facility] Lab [address] [place] [address] [facility] (no room number, 1st floor of clinic) [place] [phone] * 25 OH Vit D therapy monitoring (01/29/2024 9:00 AM CDT) 25 OH Vitamin D2 <5 ug/L 02/03/20 24 3:25 PM CDT [facility] 25 OH Vitamin D3 35 ug/L 02/03/20 24 3:25 PM CDT [facility] 25 OH Vit D Total <40 20 - 75 ug/L 02/03/2024 3:25 PM CDT [facility] Comment:Season, race, dietar y intake, and treatment affect the concentration of 02-[id number] D. Values may decrease during winter months and increase during summer months. Values 20-29 ug/L may indicate Vitamin D insufficiency and values <20 ug/L may indicate Vitamin D deficiency. Blood STRUCTURE OF RIGHT UPPER LIMB / Unknown Venipuncture / Unknown 01/29/2024 9:00 AM CDT 01/29/2024 9:01 AM CDT Narrative [facility] - 02/03/2024 3:25 PM CDT This test was developed and its performance characteristics determined by the [facility], ??Special Chemistry Laboratory. It has not been cleared or approved by the FDA. The laboratory is regulated under CLIA as qualified to perform high-complexity testing. This test is used for clinical purposes. It should not be regarded as investigational or for research. Imani Bennett APRN [facility] LAB - BLOOD ORDERA BLES Final Result [facility] [address] [facility], [address] [place] [address], [facility] * INR (01/29/2024 9:00 AM CDT) INR 0.96 0.85 - 1.15 01/29/2024 3:58 PM CDT OX LABORATORY Blood STRUCTURE OF RIGHT UPPER LIMB / Unknown Venipuncture / Unknown 01/29/2024 9:00 AM CDT 01/29/2024 9:01 AM CDT Imani Bennett APRN, CNP LAB - BLOOD ORDERA BLES Final Result LABORATORY [facility] Lab [address] Lab (no room number, 1st floor of clinic) [place] [address], [place] * Prolactin (01/29/2024 9:00 AM CDT) Prolactin 9 5 - 23 ng/mL 01/29/2024 3:01 PM CDT UU LABORATORY Blood STRUCTURE OF RIGHT UPPER LIMB / Unknown Venipuncture / Unknown 01/29/2024 9:00 AM CDT 01/29/2024 9:01 AM CDT us Imani Benentt APRN, CNP LAB - BLOOD ORDERA BLES Final Result UU LABORATORY [facility] [place] [facility] [address] [facility], [address] [place] [address] * Partial thromboplastin time (01/29/2024 9:00 AM CDT) aPTT 30 22 - 38 Seconds 01/29/2024 3:59 PM CDT OX LABORATORY Blood STRUCTURE OF RIGHT UPPER LIMB / Unknown Venipuncture / Unknown 01/29/2024 9:00 AM CDT 01/29/2024 9:01 AM CDT us Imani Bennett APRN, CNP LAB - BLOOD ORDERA BLES Final Result OX LABORATORY [facility] Lab [address] Lab (no room number, 1st floor of clinic) [place] [address], [facility] * ESR: Erythrocyte sedimentation rate (01/29/2024 9:00 AM CDT) Erythrocyte Sedimentation Rate 8 0 - 20 mm/hr 01/29/2024 9:18 AM CDT RV LABORATORY Blood STRUCTURE OF RIGHT UPPER LIMB / Unknown Venipuncture / Unknown 01/29/2024 9:00 AM CDT 01/29/2024 9:01 AM CDT Imani Bennett APRN, CNP LAB - BLOOD ORDERA BLES Final Result RV LABORATORY [facility] - [facility] [address] [place] [address] S E. Lab (no room number, 1st floor of clinic) [place] [address] * CRP, inflammation (01/29/2024 9:00 AM CDT) CRP Inflammation <3.00 <5.00 mg/L 01/29/20 3:01 PM CDT UU LABORATORY Blood STRUCTURE OF RIGHT UPPER LIMB / Unknown Venipuncture / Unknown 01/29/2024 9:00 AM CDT 01/29/2024 9:01 AM CDT Imani Bennett CARDER BLANKETS SALES SUPERINTENDENT LAB - BLOOD ORDERA BLES Final Result UU LABORATORY [facility] [place] [facility] [address] [facility], [address] [place] [address] * (ABNORMAL) Comprehensive metabolic panel (01/29/2024 9:00 AM CDT) Pathologist [facility] Sodium 139 135 - 145 mmol/L 01/29/2024 3:01 PM CDT UU LABORATORY Potassium 4.2 3.4 - 5.3 mmol/L 01/29/2024 3:01 PM CDT UU LABORATORY Carbon Dioxide (CO2) 21(L) 22 - 29 mmol/L 01/29/2024 3:01 PM CDT UU LABORATORY Anion Gap 12 7 - 15 mmol/L 01/29/2024 3:01 PM CDT [facility]U LABORATORY Urea Nitrogen 11.8 6.0 - 20.0 mg/dL 01/29/2024 3:01 PM CDT UU LABORATORY Creatinine 0.68 0.51 - 0.95 mg/dL 01/29/2024 3:01 PM CDT UU LABORATORY GFR Estimate >90 >60 mL/min/1.7 3m2 01/29/2024 3:01 PM CDT UU LABORATORY Comment:eGFR calculated usin g 2020 CKD-EPI equation. Calcium 9.5 8.8 - 10.4 mg/dL 01/29/2024 3:01 PM CDT UU LABORATORY Comment:Reference intervals for this test were updated on 12/17/2023 to reflect our healthy population more accurately. There may be differences in the flagging of prior results with similar values performed with this method. Those prior results can be interpreted in the context of the updated reference intervals. Chloride 106 98 - 107 mmol/L 01/29/2024 3:01 PM CDT UU LABORATORY Glucose 91 70 - 99 mg/dL 01/29/2024 3:01 PM CDT UU LABORATORY Alkaline Phosphatase 60 40 - 150 U/L 01/29/2024 3:01 PM CDT UU LABORATORY AST 19 0 - 45 U/L 01/29/2024 3:01 PM CDT UU LABORATORY ALT 9 0 - 50 U/L 01/29/2024 3:01 PM CDT UU LABORATORY Protein Total 7.5 6.4 - 8.3 g/dL 01/29/2024 3:01 PM CDT UU LABORATORY Albumin 4.6 3.5 - 5.2 g/dL 01/29/2024 3:01 PM CDT UU LABORATORY Bilirubin Total 0.4 <=1.2 mg/dL 01/29/2024 3:01 PM CDT UU LABORATORY Blood STRUCTURE OF RIGHT UPPER LIMB / Unknown Venipuncture / Unknown 01/29/2024 9:00 AM CDT 01/29/2024 9:01 AM CDT Imani Bennett APRN SALES SUPERINTENDENT LAB - BLOOD ORDERA BLES Final Result [facility] LABORATORY [facility] [place] [facility] [address] [facility], [address] [address] * Chlamydia trachomatis/Neisseria gonorrhoeae by PCR (09/17/2023 9:00 PM CDT) [facility] Chlamydia Trachomatis Negative Negative 09/18/2023 10:57 AM CDT UU IDD LABORATORY Comment: Negative for C. trachomatis rRNA by carpet repairer mediated amplification. A negative result by carpet repairer mediated amplification does not preclude the presence of infection because results are dependent on proper and adequate collection, absence of inhibitors and sufficient rRNA to be detected. Neisseria gonorrhoeae Negative Negative 09/18/2023 10:57 AM CDT [facility] IDD LABORATORY Comment:Negative for N. gono rrhoeae rRNA by carpet repairer mediated amplification. A negative result by carpet repairer mediated amplification does not preclude the presence of C. trachomatis infection because results are dependent on proper and adequate collection, absence of inhibitors and sufficient rRNA to be detected. Swab VAGINAL STRUCTURE / Unknown Non-blood Collection / Unknown 09/17/2023 9:00 PM CDT 09/17/2023 9:08 PM CDT us Anna Gee DO LAB - MICRO GENERAL ORDERA BLES Final Result [facility] IDD LABORATORY [facility] Inf. Diseases Diag. Lab [address] [facility], [address] [place] [address], [facility] * COLONOSCOPY - HIM SCAN (04/23/2023 12:00 AM ENDOSCOPY REGISTERED NURSE) 04/23/2023 us Provider Outside PROCEDURES Final Result * Hepatitis C Antibody (External Result) (12/18/2021 10:00 AM CDT) Hepatitis C Antibody (External) 0.4 0.0 - 0.9 ratio NON-INTERFACED (ONBASE SCANS) 12/18/2021 10:0 0 AM CDT Ronnie BREEZE PFT - 02/02/2022 9:36 AM CDT Verified by Husam Thompson on 02/02/2022. us Provider Outside LAB - HIM EXTERNAL RESULT Edite d Result - Final Performing Organization Address City/[facility]/ZIP Co de Phone Number SHARAEZE PFT NON-INTERFACED (ONBASE SCANS) * HIV Antigen Antibody Combo (12/18/2021 10:00 AM CDT) HIV 1&2 Antibody (External) Non Reactive Non Reactive NON-INTERFAC ED (ONBASE SCANS) Blood 12/18/2021 10:0 0 AM CDT Narrative BREEZE PFT - 02/02/2022 9:36 AM CDT Verified by Husam Thompson on 02/02/2022. us Provider Outside LAB - BLOOD ORDERABLES Edited R esult - Final NITESH PFT NON-INTERFACED (ONBASE SCANS) * Pap imaged thin layer screen only - recommended age 21 - 24 years (07/03/2018 12:55 PM ENDOSCOPY REGISTERED NURSE) PAP NIL COPATH Copath Report Patient Name: ANGIE HALE MR#: [id number] Specimen #: [id number] Collected: 07/03/2018 Received: 07/04/2018 Reported: 07/07/2018 15:26 Ordering Phy(s): ROBBIE LEE For improved result formatting, select 'View Enhanced Report Format' under Linked Documents section. SPECIMEN/STAIN PROCESS: Pap imaged thin layer prep screening (Surepath, FocalPoint with guided screening) ? Pap-Cyto x 1 SOURCE: Cervical, endocervical Pap imaged thin layer prep screening (Surepath, FocalPoint with guided screening) SPECIMEN ADEQUACY: Satisfactory for evaluation. -Transformation zone component present. CYTOLOGIC INTERPRETATION: Negative for intraepithelial lesion or malignancy Electronically signed out by: JAMES Herrera (ASCP) Processed and screened at [facility], [facility] CLINICAL HISTORY: Post-, A previous normal pap Date of Last Pap: 12/31/2015, Papanicolaou Test Limitations: ??Cervical cytology is a screening test with limited sensitivity; regular screening is critical for cancer prevention; Pap tests are primarily effective for the diagnosis/preventi on of squamous cell carcinoma, not adenocarcinomas or other cancers. TESTING LAB LOCATION: [address] ??[phone] COLLECTION SITE: Client: ??[facility] Location: [facility] (R) JONO Cytologic material (specimen) 07/03/2018 12:55 PM ENDOSCOPY REGISTERED NURSE 07/04/2018 9:59 AM ENDOSCOPY REGISTERED NURSE us Robbie Lee MD LAB - OPTIME CLINICAL SPECIME N Final Result COPATH from Last 3 Months or Most Recently Relevant to Health Maintenance Additional Health Concerns Infection Onset Date Last Indicated ESBL 07/30/2022 07/30/2022 Insurance [facility] PROGRESSIVE Advance Directives For more information, please contact: [phone] * Full Code (Latest Code Status on File) Date Activated Date Inactivated Comments 07/25/2022 6:39 AM 07/29/2022 7:14 PM All basic an d advanced life-sustaining interventions are performed as appropriate Question Answer Comments Code status determined by: Discussion with patie nt/ legal decision maker * Full Code Date Activated Date Inactivated Comments 07/04/2022 9:53 PM 07/08/2022 6:44 PM All basic and advanced life-sustaining interventions are performed as appropriate Question Answer Comments Code status determined by: Discussion with patie nt/ legal decision maker * Full Code Date Activated Date Inactivated Comments 09/27/2014 12:59 AM 09/28/2014 3:44 PM Care Teams Traveling Construction Superintendent Relationship Specialty Start Date End Date Robbie Lee MD [address] [place] [id number] PCP - General 11/19/05 Imani Bennett, CARDER BLANK[employer] SALES SUPERINTENDENT [address] [place] [address] [id number] Assigned PCP 05/25/23
--- OUTSIDE RECORDS SUMMARY | 2024-04-12 07:08 | XMS_ITS | Encounter Summary ---
Author Organization [place] Address [address] [facility] [place] [address] Care Team Providers Care Maintenance Representative Name Role Phone Uli Lee MD Primary Care Provider [phone] Imani Bennett APRN PERFORMING ARTS TECHNICIANS Unavailable + Encounter Details Date Type Department Care Team (Latest Contact Info) Description 02/28/2024 Travel Social History Tobacco Use Types Packs/Day Years Used Date Smoking Tobacco: Former Cigarettes Q uit: 2020 Smokeless Tobacco: Former Comments:dad smokes outside of house Alcohol Use Standard Drinks/Week Comments Not Currently 0 (1 standard drink = 0.6 oz pur e alcohol) PHQ-2 Answer Date Recorded PHQ-2 Score 1 02/28/2024 [place] Depression Scale Answer Date Recorded Last EPDS [...] AM CDT Legal Sex Female 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 Gender Identity Female 01/26/2020 10:31 AM CDT Sexual Orientation Straight 01/26/2020 10 :31 AM CDT documented as of this encounter Plan of Treatment Not on file documented as of this encounter Visit Diagnoses Not on filedocumented in this encounter Additional Health Concerns Infection Onset Date Last Indicated Resolved Time ESBL 07/30/2022 07/30/2022 Rule Out C-difficile 02/28/2024 03/04/2024 024 11:39 PM CDT Assessment Noted Time PHQ-9 Depression Total Score: 6 02/28/20 24 8:39 AM CDT documented as of this encounter Care Teams Maintenance Representative Relationship Specialty [place] [address] [place] [id number] PCP - General 11/19/05 Imani Bennett APRN PERFORMING [employer]S TECH[employer] [address] [place] [id number] Assigned PCP 05/25/23 documented as of this encounter
--- OUTSIDE RECORDS SUMMARY | 2024-04-12 07:08 | XMS_ITS | Encounter Summary ---
Author Organization [place] Address [address] [facility] [address] Care Team Providers Care Axminster Weaver Name Role Phone Uli Lee MD Primary Care Provider Imani Bennett APRN LEVEL VIAL MARKER Unavailable + Encounter Details Date Type Department Care Team (Late st Contact Info) Description 02/28/2024 2:45 PM CDT Lab [facility] Laboratory [address] [place] [phone] Diarrhea of presumed infectious origin Social History Tobacco Use Types Packs/Day Years Used Date Smoking Tobacco: Former Cigarettes Q uit: 2020 Smokeless Tobacco: Former Comments:dad smokes outside of house Alcohol Use Standard Drinks/Week Comments Not Currently 0 (1 standard drink = 0.6 oz pur e alcohol) PHQ-2 Answer Date Recorded PHQ-2 Score 1 02/28/2024 [place] Depression Scale Answer Date Recorded Last EPDS [...] AM CDT 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 ??A negative result should not rule [...] by the Infectious Diseases Diagnostic Laboratory at [facility]. This laboratory is certified under the Clinical Laboratory Improvement Amendments of 1988 (CLIA-88) as qualified to perform high complexity clinical laboratory testing. Consuelo DAVE-C LAB - MICRO GENERAL ORDERABLE S Final Result UU IDD LABORATORY [facility] Inf. Diseases Diag. Lab [address] [facility], [address] [place] [address] * C. difficile Toxin B PCR with reflex to C. difficile Antigen and Toxins A/B EIA (03/04/2024 9:40 AMCDT) [facility] C Difficile Toxin B by PCR Negative [...] CDT Narrative [facility] IDD LABORATORY - 03/04/2024 6:32 PM CDT The [employer] Dishid Xpert C. difficile Assay, performed on the [employer] Systems, is a qualitative in vitro [...] diagnosis of CDI. Consuelo Cota PA-C LAB - [email or web address] GENERAL ORDERABLE S Final Result Performing Organization Address City/[facility]/ZIP Co de Phone Number U[facility] IDD LABORATORY [facility] Inf. Diseases Diag. Lab [address] [facility], [address] [place] [address], [facility] * Basic metabolic panel (Ca, Cl, CO2, [...] - BLOOD ORDERABLES Final Result UU LABORATORY [facility] [place] [facility] Lab [address] [facility], Room [address] [place] [address] * CBC with platelets (02/28/2024 2:26 PM [...] - BLOOD ORDERABLES Final Result RV LABORATORY [facility] [place] Lab [address] [place] [address] Lab (no room number, 1st floor of clinic) [place] [address], [facility] documented in this encounter Visit Diagnoses Diagnosis Diarrhea of presumed infectious origin documented in this encounter Additional Health Concerns Infection Onset Date Last Indicated Resolved Time ESBL 07/30/2022 07/30/2022 Rule Out C-difficile 02/28/2024 03/04/202430/2 024 11:39 PM CDT Assessment Noted Time PHQ-9 Depression Total Score: 6 02/28/20 24 8:39 AM CDT documented as of this encounter Care Teams Axminster Weaver Relationship Specialty [place] [address] [place] [id number] PCP - General 11/19/05 Imani Bennett APRN [facility] [address] [place] [id number] Assigned PCP 05/25/23 documented as of this encounter
--- OUTSIDE RECORDS SUMMARY | 2024-04-12 07:08 | XMS_ITS | Encounter Summary ---
Author Organization [facility] Address [address] [place] [address]. [place] [address] Care Team Providers Care Front End Mechanic Name Role Phone Uli Lee MD Primary Care Provider [phone] Imani Bennett APRN SENIOR SALES MANAGER Unavailable + Reason for Visit * Reason Comments Diarrhea Encounter Details Date Type Department Care Team (Late st Contact Info) Description 02/28/2024 9:00 AM CDT Virtual Visit [address] [phone] Consuelo Cota, PA-C [address] [place] [address] [phone] Diarrhea of presumed infectious origin (Primary Dx) Social History Tobacco Use Types Packs/Day Years Used Date Smoking Tobacco: Former Cigarettes Q uit: 2020 Smokeless Tobacco: Former Comments:dad smokes outside of house Alcohol Use Standard Drinks/Week Comments Not Currently 0 (1 standard drink = 0.6 oz pur e alcohol) PHQ-2 Answer Date Recorded PHQ-2 Score 1 02/28/2024 [employer] Depression Scale Answer Date Recorded Last EPDS [...] AM CDT 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 How would you like to obtain your AVS? MyChart If the video visit is dropped, the invitation should be resent by: Text to cell phone: [phone] Will anyone else be joining your video visit? No Assessment & Plan Diarrhea of presumed infectious origin Lab only appointment scheduled for later today; will collect stool sample and test for c.diff and other enteric bacteria/viruses. Also checking cbc and bmp to assess electrolyte status and potential leukocytosis. Will treat with oral vancomycin 125mg QID if indicated. Discussed with patient that stool is potentially contagious and stressed the importance of good hand hygiene and cleaning bathroomsurfaces frequently with bleach products. - C. difficile Toxin B PCR with reflex to C. difficile Antigen and Toxins A/B EIA - Enteric Bacteria and Virus Panel by [facility] Stool - CBC with platelets - Basic metabolic panel (Ca, Cl, CO2, Creat, Gluc, K, Na, BUN) Patient should follow up in 3-5 days if symptoms do not improve or sooner for new or worsening symptoms. All questions answered to patient's satisfaction. Warning signs of when to seek emergency carewere discussed. Consuelo Cota PA-C BMI Estimated body mass index is 29.6 kg/m?? as calculated from the following: Height as of 01/29/24: 1.702 m (5' 7). Weight as of 01/29/24: 85.7 kg (189 lb). Weight management plan: Patient was referred to their PCP to discuss a diet and exercise plan. Krysten Ybarra is a 28 year old, presenting for the following health issues: Diarrhea 02/28/2024 8:45 AM Additional Questions Roomed by Gale Video Start Time: 8:50am Diarrhea History of Present Illness Reason for visit: Diahrea stomach pain after taking antibiotics Symptom onset: 1-3 days ago Symptoms include: Diahrea, no apetite, upset stomach like a sour stomach. Cramping when i have to go again Symptom intensity: Moderate Symptom progression: Worsening Had these symptoms before: Yes Has tried/received treatment for these symptoms: Yes Previous treatment was successful: Yes Prior treatment description: I dont remember What makes it worse: Eating She is taking medications regularly. Triage note from today 8:36 am Calling about diarrhea after taking antibiotics Had a spinal cord stimulator in for a week and was put on cephalexin for a 7+ days and was told to complete the course. Sour belly symptoms since Friday 02/23. Endorses nausea, cramping belly pain and frequent/urgent diarrhea greater than 5 times per day. Low appetite. Nighttime diarrhea. No blackor bloody stools. Background [facility] Assessment Neuro pain clinic - 02/10 temporary spinal nerve stimulator was instructed to take antibiotic every 6 hours daily -Cefalaxin 02/17- was suppose to finish antibiotics but has not due to diarrhea Last took antibiotic a few days ago Diarrhea started Saturday 5 times Today- 6 episodes Denied blood or black in stool Brown-yellow and watery Pain under belly button and a little to the left- cramping. Cramping is relieved after a bm and comes back before another bm Same is achy in between bm's Denied vomiting or fever Was eating yogurt and taking probiotic. Additional Information Negative: Shock suspected (e.g., cold/pale/clammy skin, too weak to stand, low BP, rapid pulse) Negative: Difficult to awaken or acting confused (e.g., disoriented, slurred speech) Negative: Sounds like a life-threatening emergency to the triager Negative: Vomiting also present and worse than the diarrhea Negative: [1] Blood in stool AND [2] without diarrhea Negative: Diarrhea in a cancer patient who is currently (or recently) receiving chemotherapy or radiation therapy, or cancer patient who has metastatic or end- stage cancer and is receiving palliativecare Negative: SEVERE abdominal pain (e.g., excruciating) Negative: [1] Blood in the stool AND [2] moderate or large amount of blood (e.g., any blood clots, passing blood without stool, toilet water turns red) Negative: Black or tarry bowel movements (Exception: Chronic-unchanged black- khanna BMs AND is takingiron pills or Pepto-Bismol.) Negative: [1] Drinking very little AND [2] dehydration suspected (e.g., no urine > 12 hours, very dry mouth, very lightheaded) Negative: Patient sounds very sick or weak to the triager Commented on: Abdomen looks much more swollen than usual When she eats Review of Systems Constitutional, HEENT, cardiovascular, pulmonary, GI, , musculoskeletal, neuro, skin, endocrine and psych systems are negative, except as otherwise noted. Objective Vitals: No vitals were obtained today due to virtual visit. Physical Exam GENERAL: alert and no distress EYES: Eyes grossly normal to inspection. No discharge or erythema, or obvious scleral/conjunctival abnormalities. RESP: No audible wheeze, cough, or visible cyanosis. SKIN: Visible skin clear. No significant rash, abnormal pigmentation or lesions. NEURO: Cranial nerves grossly intact. Mentation and speech appropriate for age. PSYCH: Appropriate affect, tone, and pace of words Video-Visit Details Type of service: Video Visit Video End Time:9:08 AM Originating Location (pt. Location): Home Distant Location (provider location): On-site Platform used for Video Visit: Brent Signed Electronically by: Consuelo Cota PA-C documented in this encounter Plan of Treatment Not on file documented as of this encounter Results * Enteric Bacteria and [...] [facility] LAB[facility] Norovirus Gl/Gll Negative Negative 03/04/20 7:55 PM CDT [facility] Rotavirus [...] PM CDT Assay performed using the FDA-cleared FilmArray GI Panel from [employer] ??A negative result should not rule [...] by the Infectious Diseases Diagnostic Laboratory at [facility]. This laboratory is certified under the Clinical Laboratory Improvement Amendments of 1988 (CLIA-88) as qualified to perform high complexity clinical laboratory testing. Consuelo Cota PA-C LAB - MICRO GENERAL ORDERABLE S Final Result [facility] Inf. Diseases Diag. Lab [address] [facility], [address] [place] [address] * C. difficile Toxin B PCR with reflex to C. difficile Antigen and Toxins A/B EIA (03/04/2024 9:40 AMCDT) [facility] C Difficile Toxin B by PCR Negative [...] LABORATORY - 03/04/2024 6:32 PM CDT The [employer] Xpert C. difficile Assay, performed on the [employer] GeneXpert?? Instrument Systems, is a qualitative in vitro [...] an aid in the diagnosis of CDI. us Consuelo Cota PA-C LAB - MICRO GENERAL ORDERABLE S Final Result [facility] Inf. Diseases Diag. Lab [address] [facility] [place] [address] * Basic metabolic panel (Ca, Cl, CO2, Creat, Gluc, K, Na, BUN) (02/28/2024 2:26 PM CDT) Pathologist [facility] Sodium 137 135 - 145 mmol/L 02/29/2024 [...] 2:02 AM CDT [facility] Comment:eGFR calculated usin 2020 CKD-EPI equation. Calcium 9.2 8.8 - 10.4 [...] - BLOOD ORDERABLES Final Result [facility] [place] [facility] [address] [facility], [address] [place] [address] * CBC with platelets (02/28/2024 2:26 [...] Final Result [facility] [address] [place] [address] S. E Lab (no room number, 1st floor of clinic) [place] [address], [facility] documented in this encounter Visit Diagnoses Diagnosis Diarrhea of presumed infectious origin- Primary documented in this encounter Additional Health Concerns Infection Onset Date Last Indicated Resolved Time ESBL 07/30/2022 07/30/2022 Assessment Noted Time PHQ-9 Depression Total Score: 6 02/28/20 24 8:39 AM CDT documented as of this encounter Care Teams Front End Mechanic Relationship Specialty Start Date End Date Uli Lee MD [address] [place] [id number] PCP - General 11/19/05 Imani Bennett APRN SENIOR SALES MANAGER [address] [place] [id number] Assigned PCP 05/25/23 documented as of this encounter
--- OUTSIDE RECORDS SUMMARY | 2024-04-12 07:08 | XMS_ITS | Encounter Summary ---
Author Organization [facility] Address [address] [place] [address]. [place] [address] Care Team Providers Care Gear Shaver Set Up Operator Name Role Phone Uli Lee MD Primary Care Provider [phone] Imani Bennett APRN CORPORATE QUALITY ENGINEER Unavailable + Reason for Visit * Reason Onset Date Comments Diarrhea 03/04/2024 Encounter Details Date Type Department Care Team (Late st Contact Info) Description 03/04/2024 [facility] Medical Advice [address] [place] [phone] Consuelo Cota, PA-C [address] [place] [address] [phone] Diarrhea Social History Tobacco Use Types Packs/Day Years Used Date Smoking Tobacco: Former Cigarettes Q uit: 2020 Smokeless Tobacco: Former Comments:dad smokes outside of house Alcohol Use Standard Drinks/Week Comments Not Currently 0 (1 standard drink = 0.6 oz pur e alcohol) PHQ-2 Answer Date Recorded PHQ-2 Score 1 02/28/2024 [place] Depression Scale Answer Date Recorded Last EPDS [...] AM CDT 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 She reports that she collected one sample and was loose stool, but not really liquid until the end of her stool. It was real soft with some mucus. She is now having diarrhea, but already collected the sample. She is going to take it to the Lab and discuss with tech to see if she needs to take another kit home. documented in this encounter Plan of Treatment Not on file documented as of this encounter Visit Diagnoses Not on filedocumented in this encounter Additional Health Concerns Infection Onset Date Last Indicated Resolved Time ESBL 07/30/2022 07/30/2022 Assessment Noted Time PHQ-9 Depression Total Score: 6 02/28/20 24 8:39 AM CDT documented as of this encounter Care Teams Gear Shaver Set Up Operator Relationship Specialty Start Date End Date Uli Lee MD [address] [place] [address] [phone] PCP - General 11/19/05 Imani Bennett, SECURITY OPERATIONS ENGINEER CORPORATE QUALITY ENGINEER [address] [place] [address] [phone] Assigned PCP 05/25/23 documented as of this encounter
--- OUTSIDE RECORDS SUMMARY | 2024-04-12 07:08 | XMS_ITS | Referral Summary ---
Author Organization [facility] Address [address] [place] [address]. [place] [address] Care Team Providers Care Field Liability Generalist Name Role Phone Robbie Anderson MD Primary Care Provider [phone] Imani Bennett PAROLE SUPERVISOR OFFICE MACHINE SERVICE SUPERVISOR Unavailable + Encounters Date Type Department Care Team Description 03/04/2024 Travel 03/04/2024 MyC Medical Advice [address] [phone] Consuelo Cota PA-C Diarrhea 02/28/2024 Travel 02/28/2024 2:45 PM CDT Lab [facility] [address] [place] [phone] Diarrhea of presumed infectious origin 02/28/2024 9:00 AM CDT Virtual Visit [address] [phone] Consuelo Cota PA-C Diarrhea of presumed infectious origin (Primary Dx) 01/29/2024 Travel 01/29/2024 8:00 AM CDT Office Visit [address] [phone] Imani Bennett, OSWALDO OFFICE MACHINE SERVICE SUPERVISOR Breast pain (Primary Dx); Rash; Nipple discharge; Recurrent major depressive disorder, in full remission (H); Other fatigue; Multiple joint pain; Vitamin D deficiency from Last 3 Months Allergies Active Allergy Reactions Criticality Noted Date [...] 4 tablet 3 Active vitamin D2 (ERGOCALCIFEROL) 21580 units (1250 mcg) capsuleIndication s:Recurrent major depressive [...] care 07/04/19 23 Endometriosis - s/p D&C 2014 after first child and multiple tubal cystectomies. [...] disorder, s godwin episode, moderate 08/12/2008 04/09/2013 Immunizations Name Administration Dates Next Due DTAP [...] Pt Report Hx of Varicella/Chicken Pox 1995 Social History Tobacco Use Types Packs/Day Years Used Date Smoking Tobacco: Former Cigarettes Q uit: 2020 Smokeless Tobacco: Former Tobacco Cessation:Counseling Given: Not Answered Comments:dad smokes outside of house Alcohol Use Standard Drinks/Week Comments Not Currently 0 (1 standard drink = 0.6 oz pur e alcohol) PHQ-2 Answer Date Recorded PHQ-2 Score 1 02/28/2024 [place] Depression Scale Answer Date Recorded Last EPDS [...] AM CDT Legal Sex Female 4:42 AM MOLD CAR PUSHER Gender Identity Female 01/26/2020 10:31 AM CDT [...] 01/29/2024 8:07 AM CDT Plan of Treatment Not on file Procedures Procedure Name Priority Date/Time Associated Diagnosis [...] 9:00 PM CDT COLONOSCOPY - HIM SCAN 3 12:00 AM MOLD CAR PUSHER HIV ANTIGEN ANTIBODY COMBO Routine 12/18/2021 10:00 AM CDT HEPATITIS C ANTIBODY (EXTERNAL RESULT) Routine 12/18/2021 10:00 AM CDT PAP IMAGED THIN LAYER SCREEN Routine 07/03/2018 12:55 PM MOLD CAR PUSHER Encounter for visit ASTHMA ACTION PLAN Routine [...] [facility] Giardia lamblia Negative Negative 4 7:55 PM CDT [facility] Norovirus [...] PM CDT Assay performed using the FDA-cleared Electronic Compute SystemsArray GI Panel from [employer] ??A negative result should not rule [...] by the Infectious Diseases Diagnostic Laboratory at [facility]. This laboratory is certified under the Clinical Laboratory Improvement Amendments of 1988 (CLIA-88) as qualified to perform high complexity clinical laboratory testing. us Consuelo Cota PA-C LAB - MICRO GENERAL ORDERABLE S Final Result [facility] Inf. Diseases Diag. Lab [address] [facility], [address] [place] [address], [place] * C. difficile Toxin B PCR with reflex to C. difficile Antigen and Toxins A/B EIA (03/04/2024 9:40 AMCDT) [facility] C Difficile Toxin B by PCR Negative [...] LABORATORY - 03/04/2024 6:32 PM CDT The [employer] Xpert C. difficile Assay, performed on the [employer]?? Instrument Systems, is a qualitative in vitro [...] ORDERABLE S Final Result [facility] Inf. Diseases Diag. Lab [address] [facility], [address] [place] [address], [facility] * Basic metabolic panel (Ca, Cl, CO2, Creat, Gluc, K, Na, BUN) (02/28/2024 2:26 PM CDT) Pathologist [facility] Sodium 137 135 - 145 mmol/L 02/29/2024 [...] - BLOOD ORDERABLES Final Result [facility] [place] [facility] [address] [facility], [address] [phone] * CBC with platelets (02/28/2024 2:26 [...] - BLOOD ORDERABLES Final Result RV LABORATORY [facility] [address] [place] [address] [facility] ([facility], 1st [facility] [place] [address] * Extra Purple Top Tube (01/29/2024 9:00 AM CDT) Hold Specimen [facility] 01/29/2024 10:06 AM CDT [facility] LAB[facility]AT[facility] Blood STRUCTURE OF RIGHT UPPER LIMB / Unknown Venipuncture / Unknown 01/29/2024 9:00 AM CDT 01/29/2024 9:01 AM CDT Imani Bennett APRN, CNP LAB - BLOOD ORDERA BLES Final Result LABORATORY [facility] [address] [place] [address] [facility] Lab (no room number, 1st floor of clinic) [place] [address] * Extra Green Top ([place] Heparin) Tube (01/29/2024 9:00 AM CDT) Hold Specimen [facility] 01/29/2024 10:06 AM CDT [facility] LAB[facility]AT[facility] Blood STRUCTURE OF RIGHT UPPER LIMB / Unknown Venipuncture / Unknown 01/29/2024 9:00 AM CDT 01/29/2024 9:01 AM CDT Imani Bennett APRN [facility] LAB - BLOOD ORDERA BLES Final Result LABORATORY [facility] Lab [address] [place] [address] Lab (no room number, 1st floor of clinic) [place] [address] * Extra Red Top Tube (01/29/2024 9:00 AM CDT) Hold Specimen [facility] 01/29/2024 10:06 AM CDT [facility] LAB[facility]ATORY Blood STRUCTURE OF RIGHT UPPER LIMB / Unknown Venipuncture / Unknown 01/29/2024 9:00 AM CDT 01/29/2024 9:02 AM CDT us Imani Bennett APRN [facility] LAB - BLOOD ORDERA BLES Final Result Performing Organization Address City/[facility]/ZIP Co de Phone Number LABORATORY [facility] [address] [place] [address] Lab (no room number, 1st floor of clinic) [place] [address], [facility] * Extra Blue Top Tube (01/29/2024 9:00 AM CDT) Hold Specimen [facility] 01/29/2024 10:06 AM CDT RV LAB[facility]ATORY Blood STRUCTURE OF RIGHT UPPER LIMB / Unknown Venipuncture / Unknown 01/29/2024 9:00 AM CDT 01/29/2024 9:01 AM CDT Imani Bennett APRN, CNP LAB - BLOOD ORDERA BLES Final Result LABORATORY [facility] [address] [place] [address] Lab (no room number, 1st floor of clinic) [place] [address] * CBC with platelets and differential [...] 01/29/2024 9:01 AM CDT Imani Bennett APRN OFFICE MACHINE SERVICE SUPERVISOR LAB - BLOOD ORDERA BLES Final Result RV LABORATORY [facility] [place] [facility] [address] [facility] Lab (no room number, 1st floor of clinic) [place] [address], [facility] * 25 [place] Vit D therapy monitoring (01/29/2024 9:00 AM CDT) 25 [place] Vitamin D2 <5 ug/L 02/03/20 3:25 PM CDT [facility] 25 [place] Vitamin D3 35 ug/L 02/03/20 3:25 PM CDT [facility] 25 [place] Vit D Total <40 20 - 75 ug/L 02/03/2024 3:25 PM CDT [facility] Comment:Season, race, dietar y intake, and treatment affect the concentration of 41-thjvbnj-Zhaqonj D. Values may decrease during winter months [...] and its performance characteristics determined by the [facility], ??Special Chemistry Laboratory. It has not been cleared or approved by the FDA. The laboratory is regulated under CLIA as qualified to perform high-complexity testing. This test is used for clinical purposes. It should not be regarded as investigational or for research. Imani Bennett APRN, CNP LAB - BLOOD ORDERA BLES Final Result [facility] [address] [facility] [address], [address] [place] [address], [facility] * INR (01/29/2024 9:00 AM CDT) INR 0.96 0.85 - 1.15 01/29/2024 3:58 PM CDT OX LABORATORY Blood STRUCTURE OF RIGHT UPPER LIMB / Unknown Venipuncture / Unknown 01/29/2024 9:00 AM CDT 01/29/2024 9:01 AM CDT Imani Bennett APRN [facility] LAB - BLOOD ORDERA BLES Final Result LABORATORY [facility] [address] Lab (no room number, 1st floor of clinic) [place] [address], [facility] * Prolactin (01/29/2024 9:00 AM CDT) Prolactin 9 5 - 23 ng/mL 01/29/2024 3:01 PM CDT [facility] Blood STRUCTURE OF RIGHT UPPER LIMB / Unknown Venipuncture / Unknown 01/29/2024 9:00 AM CDT 01/29/2024 9:01 AM CDT Imani Bennett APRN, CNP LAB - BLOOD ORDERA BLES Final Result U LABORATORY [facility] [place] [facility] [address] [facility] [address], [address] [place] [address], [facility] * Partial thromboplastin time (01/29/2024 9:00 AM CDT) aPTT 30 22 - 38 Seconds 01/29/2024 3:59 PM CDT OX LABORATORY Blood STRUCTURE OF RIGHT UPPER LIMB / Unknown Venipuncture / Unknown 01/29/2024 9:00 AM CDT 01/29/2024 9:01 AM CDT Imani Bennett APRN, CNP LAB - BLOOD ORDERA BLES Final Result OX LABORATORY [facility] [address] Lab (no room number, 1st floor of clinic) [place] [address], [facility] * ESR: Erythrocyte sedimentation rate (01/29/2024 9:00 AM CDT) Erythrocyte Sedimentation Rate 8 0 - 20 mm/hr 01/29/2024 9:18 AM CDT LABORATORY Blood STRUCTURE OF RIGHT UPPER LIMB / Unknown Venipuncture / Unknown 01/29/2024 9:00 AM CDT 01/29/2024 9:01 AM CDT Imani Bennett APRN, CNP LAB - BLOOD ORDERA BLES Final Result LABORATORY [facility] [address] [facility] Lab (no room number, 1st floor of clinic) [place] [address], [facility] * CRP, inflammation (01/29/2024 9:00 AM CDT) CRP Inflammation <3.00 <5.00 mg/L 01/29/20 3:01 PM CDT U LABORATORY Blood STRUCTURE OF RIGHT UPPER LIMB / Unknown Venipuncture / Unknown 01/29/2024 9:00 AM CDT 01/29/2024 9:01 AM CDT Imani Bennett APRN, CNP LAB - BLOOD ORDERA BLES Final Result [facility] [place] [facility] [address] [facility], [address] [place] [address], [facility] * (ABNORMAL) Comprehensive metabolic panel (01/29/2024 9:00 AM CDT) [facility] Sodium 139 135 - 145 mmol/L 01/29/2024 [...] PM CDT [facility] Comment:eGFR calculated usin 2020 CKD-EPI equation. Calcium 9.5 8.8 - [...] CDT 01/29/2024 9:01 AM CDT us Imani CraigCherelle Donald PAROLE SUPERVISOR OFFICE MACHINE SERVICE SUPERVISOR LAB - BLOOD ORDERA BLES Final Result [facility] [place] [facility] [address] [facility], [address] [place] [address] * Chlamydia trachomatis/Neisseria gonorrhoeae by PCR (09/17/2023 9:00 PM CDT) Pathologist [facility] Chlamydia Trachomatis Negative Negative 09/18/2023 10:57 AM CDT [facility] Comment: Negative for C. trachomatis rRNA by full stack java developer mediated amplification. A negative result by full stack java developer mediated amplification does not preclude the presence of infection because results are dependent on proper and adequate collection, absence of inhibitors and sufficient rRNA to be detected. Neisseria gonorrhoeae Negative Negative 09/18/2023 10:57 AM CDT [facility] Comment:Negative for N. gono rrhoeae rRNA by full stack java developer mediated amplification. A negative result by full stack java developer mediated amplification does not preclude the presence of C. trachomatis infection because results are dependent on proper and adequate collection, absence of inhibitors and sufficient rRNA to be detected. Swab VAGINAL STRUCTURE / Unknown Non-blood Collection / Unknown 09/17/2023 9:00 PM CDT 09/17/2023 9:08 PM CDT us Anna Gee DO LAB - MICRO GENERAL ORDERA BLES Final Result [facility] Inf. Diseases Diag. Lab [address] [facility], [address] [place] [address] * COLONOSCOPY - HIM SCAN (04/23/2023 12:00 AM MOLD CAR PUSHER) 04/23/2023 us Provider Outside PROCEDURES Final Result * Hepatitis C Antibody (External Result) (12/18/2021 10:00 AM CDT) Hepatitis C Antibody (External) 0.4 0.0 - 0.9 ratio NON-INTERFACED (ONBASE SCANS) 12/18/2021 10:0 0 AM CDT Narrative [facility] - 02/02/2022 9:36 AM CDT Verified by Husam Thompson on 02/02/2022. us Provider Outside LAB - HIM EXTERNAL RESULT Edite d Result - Final [facility] NON-INTERFACED (ONBASE SCANS) * HIV Antigen Antibody Combo (12/18/2021 10:00 AM CDT) HIV 1&2 Antibody (External) Non Reactive Non Reactive NON-INTERFAC ED (ONBASE SCANS) Blood 12/18/2021 10:0 0 AM CDT Narrative [facility] - 02/02/2022 9:36 AM CDT Verified by Husam Thompson on 02/02/2022. Provider Outside LAB - BLOOD ORDERABLES Edited R esult - Final [facility] NON-INTERFACED (ONBASE SCANS) * Pap imaged thin layer screen only - recommended age 21 - 24 years (07/03/2018 12:55 PM MOLD CAR PUSHER) PAP ALETHA Castillo Report Patient Name: ANGIE HALE MR#: [id number] Specimen #: [id number] Collected: 07/03/2018 Received: 07/04/2018 Reported: 07/07/2018 15:26 Ordering Phy(s): ROBBIE ANDERSON For improved result formatting, select 'View Enhanced [...] JAMES Herrera (ASCP) Processed and screened at [facility] CLINICAL HISTORY: Post-, A previous normal pap Date of Last Pap: 12/31/2015, Papanicolaou Test Limitations: ??Cervical cytology is a screening test with limited sensitivity; regular screening is critical for cancer prevention; Pap tests are primarily effective for the diagnosis/preventi on of squamous cell carcinoma, not adenocarcinomas or other cancers. TESTING LAB LOCATION: [address] ??[address] COLLECTION SITE: Client: ??[facility] Location: [facility] (R) COPATH Cytologic material (specimen) 07/03/2018 12:55 PM MOLD CAR PUSHER 07/04/2018 9:59 AM MOLD CAR PUSHER us Robbie Anderson MD LAB - OPTIME CLINICAL SPECIME N Final Result COPATH from Last 3 Months or Most Recently Relevant to Health Maintenance Additional Health Concerns Infection Onset Date Last Indicated ESBL 07/30/2022 07/30/2022 [facility] Advance Directives For more information, please contact: [phone] * Full Code (Latest Code Status on [...] 12:59 AM 09/28/2014 3:44 PM Care Teams Field Liability Generalist Relationship Specialty [place] [address] [place] [address] [id number] PCP - General 11/19/05 Imani Bennett APRN OFFICE MACHINE SERVICE SUPERVISOR [address] [place] [address] [phone] Assigned PCP 05/25/23
--- OUTSIDE RECORDS SUMMARY | 2024-04-12 07:08 | XMS_ITS | Encounter Summary ---
Author Organization [facility] Address [address] [facility] [place] [address] Care Team Providers Care Manager Truck Name Role Phone Uli Lee MD Primary Care Provider [phone] Imani Bennett APRN PROBATE CLERK Unavailable + Encounter Details Date Type Department Care Team (Latest Contact Info) Description 01/29/2024 Travel Social History Tobacco Use Types Packs/Day Years Used Date Smoking Tobacco: Former Cigarettes Q uit: 2020 Smokeless Tobacco: Former Comments:dad smokes outside of house Alcohol Use Standard Drinks/Week Comments Not Currently 0 (1 standard drink = 0.6 oz pur e alcohol) PHQ-2 Answer Date Recorded PHQ-2 Score 2 01/29/2024 [place] Depression Scale Answer Date Recorded Last EPDS [...] AM CDT Legal Sex Female 4:42 AM 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 TV INSTALLER Gender Identity Female 01/26/2020 10:31 AM CDT Sexual Orientation Straight 01/26/2020 10 :31 AM CDT documented as of this encounter Plan of Treatment Not on file documented as of this encounter Visit Diagnoses Not on filedocumented in this encounter Additional Health Concerns Infection Onset Date Last Indicated Resolved Time ESBL 07/30/2022 07/30/2022 Assessment Noted Time PHQ-9 Depression Total Score: 11 024 7:38 AM CDT documented as of this encounter Care Teams Manager Truck Relationship Specialty [place] [address] [place] [phone] PCP - General 11/19/05 Imani Bennett APRN CNP [address] [place] [id number] Assigned PCP 05/25/23 documented as of this encounter
--- OUTSIDE RECORDS SUMMARY | 2024-04-12 07:08 | XMS_ITS | Encounter Summary ---
Author Organization [facility] Address [address] [facility] [place] [address] Care Team Providers Care Senior Publications Specialist Name Role Phone Uli Lee MD Primary Care Provider [phone] Imani Bennett APRN DANCER OR CHOREOGRAPHER Unavailable + Encounter Details Date Type Department Care Team (Latest Contact Info) Description 03/04/2024 Travel Social History Tobacco Use Types Packs/Day Years Used Date Smoking Tobacco: Former Cigarettes Q uit: 2020 Smokeless Tobacco: Former Comments:dad smokes outside of house Alcohol Use Standard Drinks/Week Comments Not Currently 0 (1 standard drink = 0.6 oz pur e alcohol) PHQ-2 Answer Date Recorded PHQ-2 Score 1 02/28/2024 [place] Depression Scale Answer Date Recorded Last EPDS [...] AM CDT Legal Sex Female 4:[address] FREIGHT Gender Identity Female 01/26/2020 10:31 AM CDT [...] documented as of this encounter Care Teams Senior Publications Specialist Relationship Specialty [place] [address] [place] [id number] PCP - General 11/19/05 Imani Bennett APRN CNP [address] [place] [phone] Assigned PCP 05/25/23 documented as of this encounter
--- OUTSIDE RECORDS SUMMARY | 2024-04-12 07:09 | XMS_ITS | Encounter Summary ---
Author Organization [place] Address [facility] [place] [address] Care Team Providers Care Financial Reporting Consultant Name Role Phone Uli Lee MD Primary Care Provider [phone] Uli Lee MD Unavailable [phone] Imani Holman FUEL BUYER Unavailable Mercedez Hodge MD Unavailable Uli Lee MD Unavailable [phone] Imani Holman FUEL BUYER Unavailable [phone] Uli Lee MD Unavailable [phone] Imani Bennett APRN FUEL BUYER Unavailable + Uli Lee MD Unavailable [phone] Imani Bennett APRN FUEL BUYER Unavailable + Uli Lee MD Unavailable [phone] Uli Lee MD Unavailable [phone] Uli Lee MD Unavailable [phone] Imani Bennett APRN FUEL BUYER Unavailable + Imani Bennett APRN FUEL BUYER Unavailable + Encounter Details Date Type Department Care Team (Late st Contact Info) Description 10/17/2020 MyC Medical Advice [address] [phone] Radha Khan, INFORMATICS PHYSICIAN Social History Tobacco Use Types Packs/Day Years Used Date Smoking Tobacco: Former Cigarettes Q uit: 08/2017 Smokeless Tobacco: Never Comments:dad smokes outside of house Alcohol Use Standard Drinks/Week Comments No 0 (1 standard drink = 0.6 oz pur e alcohol) PHQ-2 Answer Date Recorded PHQ-2 Score 2 10/17/2020 Comments No Sex and Gender Information Value Date Recorded Sex Assigned at Female 01/26/2020 10:31 AM CDT Legal Sex Female 4:42 AM SAP BW ARCHITECT Gender Identity Female 01/26/2020 10:31 AM CDT Sexual Orientation Straight 01/26/2020 10 :31 AM CDT COVID-19 Exposure Response Date Recorded In the last month, have you been in contact with someone who was confirmed or suspected to have Coronavirus / COVID-19? No / Unsure 10/15/2020 1:45 AM CDT documented as of this encounter Plan of Treatment Not on file documented as of this encounter Visit Diagnoses Not on filedocumented in this encounter Additional Health Concerns Infection Onset Date Last Indicated Resolved Time Rule Out COVID-19 07/10/2021 07/10/2021 07/10/2021 9:43 AM SAP BW ARCHITECT Influenza 07/10/2021 07/10/2021 07/17/2021 11:3 9 PM SAP BW ARCHITECT Rule Out COVID-19 12/09/2021 12/09/2021 12/09/2021 6:55 PM CDT COVID-19 12/09/2021 12/09/2021 12/30/2021 11:4 1 PM CDT Rule Out COVID-19 07/30/2022 07/30/2022 07/31/2022 5:53 PM SAP BW ARCHITECT ESBL 07/30/2022 07/30/2022 Rule Out COVID-19 12/31/2022 12/31/2022 12/31/2022 7:30 AM CDT Rule Out C-difficile 02/28/2024 03/04/202430/2 024 11:39 PM CDT Assessment Noted Time PHQ-9 Depression Total Score: 10 021 10:57 AM CDT documented as of this encounter Care Teams Financial Reporting Consultant Relationship Specialty Start Date End Date Uli Lee MD [address] [place] [id number] PCP - General 11/19/05 Uli Lee MD [address] [place] [address] Assigned PCP 03/13/20 01/28/21 Imani Holman, FUEL BUYER [address] [place] [address] Assigned PCP 01/29/21 06/10/21 Mercedez Hodge MD [address] [place] [address] [id number] [place] [address] Assigned Neuroscience Provider 05/14/21 11/02/22 Uli Lee MD [address] [place] [address] Assigned PCP 06/11/21 10/14/21 Imani Holman, FUEL BUYER [address] [place] [address] Assigned PCP 10/15/21 04/20/22 Uli Lee MD [address] [place] [address] Assigned PCP 04/21/22 08/24/22 Imani Bennett APRN FUEL BUYER [address] [place] [address], [place] [address] Assigned PCP 08/25/22 09/14/22 Uli Lee MD [address] [place] [address], [place] [address] Assigned PCP 09/15/22 10/05/22 Imani Bennett APRN FUEL BUYER [address] [place] [address], [place] [address] Assigned PCP 10/06/22 01/18/23 Uli Lee MD [address] [place] [address], [place] [address] Assigned PCP 01/19/23 05/24/23 Uli Lee MD [address] [place] [address], [place] [address] Assigned Pain Medication Provider 02/02/23 02/22/23 Uli Lee MD [address] [place] [address], [place] [address] Assigned Pain Medication Provider 03/16/23 05/31/23 Imani Bennett APRN FUEL BUYER [address] [place] [address], [place] [address] Assigned Pain Medication Provider 06/01/23 06/26/23 Imani Bennett APRN FUEL BUYER [address] [place] [address], [place] [address] Assigned PCP 05/25/23 documented as of this encounter
--- OUTSIDE RECORDS SUMMARY | 2024-04-12 07:09 | XMS_ITS | Encounter Summary ---
Author Organization [facility] Address [facility] [place] [address] Care Team Providers Care Tape Cutter Name Role Phone Uli Lee MD Primary Care Provider [phone] Keisha Mtz MD Unavailable Unavaila ble Uli Lee MD Unavailable [phone] Imani Holman FIELD ADJUSTER Unavailable [phone] Mercedez Hodge MD Unavailable Uli Lee MD Unavailable +[phone] Imani Holman FIELD ADJUSTER Unavailable +[phone] Uli Lee MD Unavailable +[phone] Imani Bennett APRN FIELD ADJUSTER Unavailable + Uli Lee MD Unavailable +[phone] Imani Bennett APRN FIELD ADJUSTER Unavailable + Uli Lee MD Unavailable +[phone] Uli Lee MD Unavailable +[phone] Uli Lee MD Unavailable +[phone] Imani Bennett APRN FIELD ADJUSTER Unavailable + Imani Bennett APRN FIELD ADJUSTER Unavailable + Reason for Visit * Reason Onset Date Comments MyChart Communication 01/24/2020 Encounter Details Date Type Department Care Team ([facility] st Contact Info) Description 01/24/2020 MyC Medical Advice [address] [phone] Uli Lee MD [address] [place] [address] [phone] MyChart Communication Social History Tobacco Use Types Packs/Day Years Used Date Smoking Tobacco: Former Cigarettes Q uit: 08/2017 Smokeless Tobacco: Never Comments:dad smokes outside of house Alcohol Use Standard Drinks/Week Comments No 0 (1 standard drink = 0.6 oz pur e alcohol) PHQ-2 Answer Date Recorded PHQ-2 Score 3 01/26/2020 Comments No Sex and Gender Information Value Date Recorded Sex Assigned at Female 01/26/2020 10:31 AM CDT Legal Sex Female 4:42 AM TISSUE SPECIALIST Gender Identity Female 01/26/2020 10:31 AM CDT Sexual Orientation Straight 01/26/2020 10 :31 AM CDT COVID-19 Exposure Response Date Recorded In the last month, have you been in contact with someone who was confirmed or suspected to have Coronavirus / COVID-19? No / Unsure 01/22/2020 9:42 AM CDT documented as of this encounter Miscellaneous Notes * Telephone Encounter - Jesus Montoya RN - 01/25/2020 11:08 AM CDT HCG Reference Ranges: 3 weeks: 5.8 - 71.2 mIU/ml 4 weeks: 9.5 - 750 mIU/ml 5 weeks: 217 - 7138 mIU/ml 6 weeks: 158 - 80145 mIU/ml Mychart message sent .allyson documented in this encounter Plan of Treatment Not on file documented as of this encounter Visit Diagnoses Not on filedocumented in this encounter Additional Health Concerns Infection Onset Date Last Indicated Resolved Time Rule Out COVID-19 04/10/2020 04/10/2020 05/01/2020 11:40 PM TISSUE SPECIALIST Rule Out COVID-19 07/10/2021 07/10/2021 07/10/2021 9:43 AM TISSUE SPECIALIST Influenza 07/10/2021 07/10/2021 07/17/2021 11:3 9 PM TISSUE SPECIALIST Rule Out COVID-19 12/09/2021 12/09/2021 12/09/2021 6:55 PM CDT COVID-19 12/09/2021 12/09/2021 12/30/2021 11:4 1 PM CDT Rule Out COVID-19 07/30/2022 07/30/2022 07/31/2022 5:53 PM TISSUE SPECIALIST ESBL 07/30/2022 07/30/2022 Rule Out COVID-19 12/31/2022 12/31/2022 12/31/2022 7:30 AM CDT Rule Out C-difficile 02/28/2024 03/04/2024 024 11:39 PM CDT Assessment Noted Time PHQ-9 Depression Total Score: 5 04/22/20 19 4:30 PM TISSUE SPECIALIST documented as of this encounter Care Teams Tape Cutter Relationship Specialty Start Date End Date Uli Lee MD [address] [place] [id number] PCP - General 11/19/05 Keisha Mtz MD Assigned PCP 07/05/19 03/12/20 Uli Lee MD [address] [place] [id number] Assigned PCP 03/13/20 01/28/21 Imani Holman, FIELD ADJUSTER [address] [place] [address] [id number] Assigned PCP 01/29/21 06/10/21 Mercedez Hodge MD [address] [facility] [id number] [place] [address] Assigned Neuroscience Provider 05/14/21 11/02/22 Uli Lee MD [address] [place] [address], [place] [address] Assigned PCP 06/11/21 10/14/21 Imani Holman, FIELD ADJUSTER [address] [place] [address], [place] [id number] Assigned PCP 10/15/21 04/20/22 Uli Lee MD [address] [place] [address], [place] [address] Assigned PCP 04/21/22 08/24/22 Imani Bennett, MAGNETIC LOCATER FIELD ADJUSTER [address] [place] [address], [place] [address] Assigned PCP 08/25/22 09/14/22 Uli Lee MD [address] [place] [address], [place] [address] Assigned PCP 09/15/22 10/05/22 Imani Bennett APRN FIELD ADJUSTER [address] [place] [address], [place] [address] Assigned PCP 10/06/22 01/18/23 Uli Lee MD [address] [place] [address], [place] [address] Assigned PCP 01/19/23 05/24/23 Uli Lee MD [address] [place] [id number] Assigned Pain Medication Provider 02/02/23 02/22/23 Uli Lee MD [address] [place] [address] [id number] Assigned Pain Medication Provider 03/16/23 05/31/23 Imani Bennett APRN FIELD ADJUSTER [address] [place] [address] [id number] Assigned Pain Medication Provider 06/01/23 06/26/23 Imani Bennett APRN FIELD ADJUSTER [address] [place] [id number] Assigned PCP 05/25/23 documented as of this encounter
--- OUTSIDE RECORDS SUMMARY | 2024-04-12 07:09 | XMS_ITS | Encounter Summary ---
Author Organization [facility] Address [address] [facility] [place] [address] Care Team Providers Care Hairspring Ii Inspector Name Role Phone Uli Lee MD Primary Care Provider [phone] Imani Bennett APRN SCRUB WHEEL OPERATOR Unavailable + Reason for Referral * Diagnostic Imaging Ultrasound (Routine) - Pending Review Specialty Diagnoses / Procedures Referred By Poncho t Referred To Contact Radiology. Diagnoses Breast pain Rash Nipple discharge Procedures US Breast Bilateral Limited 1-3 Quadrants Imani Bennett APRN SCRUB WHEEL OPERATOR [address] [place] [address] Phone: tel: fax: Referral ID Status Reason Start Date Expiration Date V isits Requested Visits Authorized [id number] Pending Review 01/29/2024 01/28/2025 1 1 * Diagnostic Imaging Mammo (Routine) - Pending Review Specialty Diagnoses / Procedures Referred By Contac t Referred To Contact Radiology. Diagnoses Breast pain Rash Nipple discharge Procedures MA Diagnostic Bilateral w/ Balbir Imani Bennett APRN SCRUB WHEEL OPERATOR [address] [place] [address] Phone: tel: fax: Referral ID Status Reason Start Date Expiration Date V isits Requested Visits Authorized [id number] Pending Review 01/29/2024 01/28/2025 1 1 Reason for Visit * Reason Comments Breast Pain Bilateral Encounter Details Date Type Department Care Team (Late st Contact Info) Description 01/29/2024 8:00 AM CDT Office Visit [address] [phone] Imani Bennett APRN SCRUB WHEEL OPERATOR [address] [place] [address] [phone] Breast pain (Primary Dx); Rash; Nipple discharge; Recurrent major depressive disorder, in full remission (H); Other fatigue; Multiple joint pain; Vitamin D deficiency Social History Tobacco Use Types Packs/Day Years Used Date Smoking Tobacco: Former Cigarettes Q uit: 2020 Smokeless Tobacco: Former Comments:dad smokes outside of house Alcohol Use Standard Drinks/Week Comments Not Currently 0 (1 standard drink = 0.6 oz pur e alcohol) PHQ-2 Answer Date Recorded PHQ-2 Score 2 01/29/2024 Pickerel Depression Scale Answer Date Recorded Last EPDS [...] AM CDT Legal Sex Female 4:42 AM LAMP REPLACER Gender Identity Female 01/26/2020 10:31 AM CDT Sexual Orientation Straight 01/26/2020 10 :31 AM CDT documented as of this encounter Last Filed Vital Signs Vital Sign Reading [...] Mass Index 29.6 01/29/2024 8:07 AM CDT documented in this encounter Patient Instructions * Patient Instructions* Imani Bennett APRN CNP - 01/29/2024 8:00 AM CDT I have sent your orders for breast imaging over to [facility]; they should be reaching out for you to get this completed. Please let me know if any problems or concerns Evening primrose oil (EPO) may also offer some pain relief. * Attachments The following attachments cannot be sent through Care Everywhere. * Breast Pain ([place]orese) documented in this encounter Progress Notes * Imani Bennett APRN CNP - 01/29/2024 8:00 AM CDT Images from the original note were not included. Assessment & Plan Breast pain Concerns are heard validated and empathized with today. She would like the reassurance that nothingis going on that is sinister which is completely understandable. Important to note she has a paternal aunt that was young when she had her diagnosis of breast cancer. Recommend diagnostic imaging including mammogram and ultrasound. Could also consider breast MRI if those are negative. Also concerning that she is having nipple discharge and intermittent rash. May need a dermatologic consult for biopsy. Lab work today to rule out underlying concerning etiology to her rash and nipple discharge. Will get her set up with a different breast center for her imaging. Tate verbalizes understanding of plan of care and is in agreement. - Comprehensive metabolic panel - INR - Partial thromboplastin time - CBC with platelets and differential - ESR: Erythrocyte sedimentation rate - CRP, inflammation - Extra Tube - Prolactin - Comprehensive metabolic panel - INR - Partial thromboplastin time - CBC with platelets and differential - ESR: Erythrocyte sedimentation rate - CRP, inflammation - Extra Tube Rash Rash on the breast intermittently could be heat rash and irritation nothing is currently present there. Nipple discharge - Prolactin - Comprehensive metabolic panel - INR - Partial thromboplastin time - CBC with platelets and differential - ESR: Erythrocyte sedimentation rate - CRP, inflammation - Extra Tube - Prolactin - Comprehensive metabolic panel - INR - Partial thromboplastin time - CBC with platelets and differential - ESR: Erythrocyte sedimentation rate - CRP, inflammation - Extra Tube Recurrent major depressive disorder, in full remission (H24) - 25 OH Vit D therapy monitoring Other fatigue - 25 OH Vit D therapy monitoring Multiple joint pain - 25 OH Vit D therapy monitoring Vitamin D deficiency - 25 OH Vit D therapy monitoring Return in about 4 weeks (around 02/26/2024) for wellness exam. Subjective Tate is a 28 year old, presenting for the following health issues: Breast Pain (Bilateral) 01/29/2024 7:45 AM Additional Questions Roomed by Ayo TRUJILLO Accompanied by Son - Aram History of Present Illness Reason for visit: Breast pain She eats 2-3 servings of fruits and vegetables daily.She consumes 1 sweetened beverage(s) daily.Sheexercises with enough effort to increase her heart rate 30 to 60 minutes per day. She exercises with enough effort to increase her heart rate 3 or less days per week. She is taking medications regularly. Breast Concern Onset/Duration: Right for years seen for when 19 years old, 1 year ago was having discharge a lump was found Description: Location: Right breast for years -- Lef t Pain or tenderness: YES Redness: YES- some days also more swollen than other days Intensity: has been an 8/10 Progression of Symptoms: worsening Accompanying Signs & Symptoms: Any lumps in axillary region: Had lump in right breast -- has felt others -- too painful to check last night Movable: YES- and the pain has is also into right armpit -- sies of breasts and under nipple Nipple discharge: 1 year ago yellow discharge -- NOW clear - random - RIGHT ONLY Changes in the skin or nipple: rash - on and off -- looks like little red pin pricks has happened 3x On Hormone therapy: ?? no?? Does it change with menstrual cycle: N/A - has hysterectomy Previous history of similar problem: 19 Years old - First degree relative with breast cancer: Paternal Aunt currently, a relative on Mom's side passed from breast cancer Precipitating factors: Worsened by: moving - bra/clothes off and on - wearing or not wearing a bra hurts Alleviating factors: Improved by: not moving but still has burning and throbbing pain, heating pads Therapies tried and outcome: ibuprofen, tylenol - no relief Patient's last menstrual period was 10/27/2021 (approximate). Significant pain in both breasts R>L. She had previous ultrasound approximately a year ago without significant findings. However she reports feeling very dismissed about her concerns last year when she went for imaging. She reports she was told she did not qualify for mammography because she was too young. She requested mammography anyway to be done for reassurance. She has continued to have breast concerns and has waited to be seen again just due to the fact of not wanting to be minimized. Pain is significantly worsening. She has intermittent right nipple discharge. She has rash intermittently on her breasts which she showed me in a picture. Right more than left. Of note she has a paternal aunt who was diagnosed with breast cancer very young was in remission for quite some time and now her breast CA has returned. Of note she had an emergent complete hysterectomy after delivery of her last child. She is not currently on hormones. She was told to cut out all caffeine last year after her mammogram which she has done and still hasthe pain. Exam Details Constitutional, HEENT, cardiovascular, pulmonary, GI, , musculoskeletal, neuro, skin, endocrine and psych systems are negative, except as otherwise noted in the HPI. Objective BP 132/80 (BP Location: Left arm, Patient Position: Chair, Cuff Size: Adult Small) Pulse 98 Temp 98.9 ??F (37.2 ??C) (Tympanic) Resp 14 Ht 1.702 m (5' 7) Wt 85.7 kg (189 lb) LMP 10/27/2021 (Approximate) SpO2 98% BMI 29.60 kg/m?? Body mass index is 29.6 kg/m??. Physical Exam GENERAL: alert and no distress; very pleasant BREAST: normal without masses, tenderness or nipple discharge and no palpable axillary masses or adenopathy SKIN: no suspicious lesions or rashes; she had a picture of her breast on her cell phone that she showed me and she does seem to get a scattered macular rash that turns most petechial in nature when she scratches it. Signed Electronically by: Imani Bennett APRN CNP documented in this encounter Miscellaneous Notes * Result Encounter Note - Imani Bennett APRN CNP - 01/29/2024 8:00 AM CDT Dear Tate, Here is a summary of your recent test results: All of your labs are normal. For additional lab test information, labtestsonline.org is an excellent reference. In addition, here is a list of due or overdue Health Maintenance reminders: Yearly Preventive Visit due on 02/04/2013 Asthma Action Plan - yearly due on 11/18/2018 Pneumococcal Vaccine(2 of 2 - PCV) due on 04/11/2021 ANNUAL REVIEW OF HM ORDERS due on 01/11/2024 Flu Vaccine(1) due on 02/02/2024 Please call us at [phone] (or use [employer]) to address the above recommendations if needed. Thank you for choosing [facility]. It was an honor and a privilege to participate in your care. Healthy regards, Imani Bennett, NITIN [facility] documented in this encounter Plan of Treatment Scheduled Orders Name Type Priority Associated Diagnoses Orde r Schedule MA Diagnostic Bilateral w/ Balbir Imaging Routine Breast pain Rash Nipple discharge Expected: 01/29/2024 (Approximate), Expires: 01/28/2025 US Breast Bilateral Limited 1-3 Quadrants Imaging Routine Breast pain Rash Nipple discharge Expected: 01/29/2024 (Approximate), Expires: 01/28/2025 documented as of this encounter Procedures Procedure Name Priority Date/Time Associated Diagnosis Comments EXTRA TUBE Routine 01/29/2024 9:00 AM CDT [...] fatigue Multiple joint pain Vitamin D deficiency CBC WITH PLATELETS & DIFFERENTIAL Routine 01/29/2024 [...] 9:00 AM CDT Breast pain Nipple discharge documented in this encounter Results * Extra Purple Top Tube (01/29/2024 9:00 AM CDT) Hold Specimen [facility] 01/29/2024 10:06 AM CDT RV LABORATORY Blood STRUCTURE OF RIGHT UPPER LIMB / Unknown Venipuncture / Unknown 01/29/2024 9:00 AM CDT 01/29/2024 9:01 AM CDT Imani Bennett APRN, CNP LAB - BLOOD ORDERA BLES Final Result LABORATORY [facility] [address] [place] [address] Lab (no room number, 1st floor of [facility]) [place] [phone] * Extra Green Top (Standard Heparin) Tube (01/29/2024 9:00 AM CDT) Hold Specimen [facility] 01/29/2024 10:06 AM CDT [facility] LAB[facility] Blood STRUCTURE OF RIGHT UPPER LIMB / Unknown Venipuncture / Unknown 01/29/2024 9:00 AM CDT 01/29/2024 9:01 AM CDT Imani Bennett APRN, CNP LAB - BLOOD ORDERA BLES Final Result LABORATORY [facility] [address] [place] [address] Lab (no room number, 1st floor of clinic) [place] [phone] * Extra Red Top Tube (01/29/2024 9:00 AM CDT) Hold Specimen [facility] 01/29/2024 10:06 AM CDT [facility] LABORATORY Blood STRUCTURE OF RIGHT UPPER LIMB / Unknown Venipuncture / Unknown 01/29/2024 9:00 AM CDT 01/29/2024 9:02 AM CDT Imani Bennett APRN, CNP LAB - BLOOD ORDERA BLES Final Result RV LABORATORY [facility] [address] [place] [address] Lab (no room number, 1st floor of [facility]) [place] [phone] * Extra Blue Top Tube (01/29/2024 9:00 AM CDT) Hold Specimen [facility] 01/29/2024 10:06 AM CDT [facility] LABORATORY Blood STRUCTURE OF RIGHT UPPER LIMB / Unknown Venipuncture / Unknown 01/29/2024 9:00 AM CDT 01/29/2024 9:01 AM CDT Imani Bennett APRN, CNP LAB - BLOOD ORDERA BLES Final Result Performing Organization Address City/[facility]/ZIP Co de Phone Number RV LABORATORY [facility] [address] [place] [address] Lab (no room number, 1st floor of [facility]) [place] [phone] * CBC with platelets and differential (01/29/2024 9:00 AM CDT) [facility] WBC Count 5.5 4.0 - 11.0 10e3/uL [...] 01/29/2024 9:01 AM CDT us Imani Bennett APRN SCRUB WHEEL OPERATOR LAB - BLOOD ORDERA BLES Final Result RV LABORATORY [facility] [address] [place] [address] [address] Lab (no room number, 1st floor of clinic) [place] [address], [facility] * 25 OH Vit D therapy monitoring (01/29/2024 9:00 AM CDT) Pathologist [facility] 25 OH Vitamin D2 <5 ug/L 02/03/20 3:25 PM CDT [facility] 25 OH Vitamin D3 35 ug/L 02/03/20 3:25 PM CDT [facility] 25 OH Vit D Total <40 20 - 75 ug/L 02/03/2024 3:25 PM CDT [facility] Comment:Season, race, dietar y intake, and treatment affect the concentration of 76-uwbwbtw-Fwviqcd D. Values may decrease during winter months [...] and its performance characteristics determined by the [facility], ??Special Chemistry Laboratory. It has not been cleared or approved by the FDA. The laboratory is regulated under CLIA as qualified to perform high-complexity testing. This test is used for clinical purposes. It should not be regarded as investigational or for research. Imani Bennett APRN, CNP LAB - BLOOD ORDERA BLES Final Result [facility] [address] [facility], Room [address] [place] [phone] * CRP, inflammation (01/29/2024 9:00 AM CDT) CRP Inflammation <3.00 <5.00 mg/L 01/29/20 3:01 PM CDT [facility] Blood STRUCTURE OF RIGHT UPPER LIMB / Unknown Venipuncture / Unknown 01/29/2024 9:00 AM CDT 01/29/2024 9:01 AM CDT Imani Bennett APRN SCRUB WHEEL OPERATOR LAB - BLOOD ORDERA BLES Final Result [facility] LABORATORY [facility] [place] [facility] [address] [facility], Room [address] [place] [address], [facility] * ESR: Erythrocyte sedimentation rate (01/29/2024 9:00 AM CDT) Erythrocyte Sedimentation Rate 8 0 - 20 mm/hr 01/29/2024 9:18 AM CDT [facility] LAB[facility]AT[facility] Blood STRUCTURE OF RIGHT UPPER LIMB / Unknown Venipuncture / Unknown 01/29/2024 9:00 AM CDT 01/29/2024 9:01 AM CDT Imani Bennett APRN, CNP LAB - BLOOD ORDERA BLES Final Result [facility] LABORATORY [facility] [place] [facility] [address] [facility] Lab (no room number, 1st floor of clinic) [place] [address], [facility] * Partial thromboplastin time (01/29/2024 9:00 AM CDT) aPTT 30 22 - 38 Seconds 01/29/2024 3:59 PM CDT [facility] LABORATORY Blood STRUCTURE OF RIGHT UPPER LIMB / Unknown Venipuncture / Unknown 01/29/2024 9:00 AM CDT 01/29/2024 9:01 AM CDT Imani Bennett APRN, CNP LAB - BLOOD ORDERA BLES Final Result [facility]X LABORATORY [facility] [address] Lab (no room number, 1st floor of clinic) [place] [address], [facility] * INR (01/29/2024 9:00 AM CDT) INR 0.96 0.85 - 1.15 01/29/2024 3:58 PM CDT [facility] LABORATORY Blood STRUCTURE OF RIGHT UPPER LIMB / Unknown Venipuncture / Unknown 01/29/2024 9:00 AM CDT 01/29/2024 9:01 AM CDT Imani Bennett APRN SCRUB WHEEL OPERATOR LAB - BLOOD ORDERA BLES Final Result OX LABORATORY [facility] [address] Lab (no room number, 1st floor of clinic) [place] [address], [facility] * (ABNORMAL) Comprehensive metabolic panel (01/29/2024 9:00 AM CDT) Sodium 139 135 - 145 mmol/L 01/29/2024 [...] 01/29/2024 9:01 AM CDT us Imani Bennett APRN SCRUB WHEEL OPERATOR LAB - BLOOD ORDERA BLES Final Result U LABORATORY [facility] [place] [facility] [address] [facility], [address] * Prolactin (01/29/2024 9:00 AM CDT) Prolactin 9 5 - 23 ng/mL 01/29/2024 3:01 PM CDT [facility] LABORATORY Blood STRUCTURE OF RIGHT UPPER LIMB / Unknown Venipuncture / Unknown 01/29/2024 9:00 AM CDT 01/29/2024 9:01 AM CDT Imani Bennett APRN SCRUB WHEEL OPERATOR LAB - BLOOD ORDERA BLES Final Result U LABORATORY [facility] [place] [facility] [address] [facility], [address] documented in this encounter Visit Diagnoses Diagnosis Breast pain- Primary Mastodynia Rash Rash and other nonspecific skin eruption Nipple discharge Other sign and symptom in breast Recurrent major depressive disorder, in full remission (H) Other fatigue Multiple joint pain Pain in joint, multiple sites Vitamin D deficiency Unspecified vitamin D deficiency documented in this encounter Additional Health Concerns Infection Onset Date Last Indicated Resolved Time ESBL 07/30/2022 07/30/2022 Assessment Noted Time PHQ-9 Depression Total Score: 11 01/28/ 024 7:38 AM CDT documented as of this encounter Care Teams Hairspring Ii Inspector Relationship Specialty [place] [address] [place] [address] [phone] PCP - General 11/19/05 Imani Bennett APRN CNP [address] [place] [address] [id number] Assigned PCP 05/25/23 documented as of this encounter
--- OUTSIDE RECORDS SUMMARY | 2024-04-12 07:09 | XMS_ITS | Encounter Summary ---
Author Organization [facility] Address [address] [place] [address] Care Team Providers Care Table Games Dealer Name Role Phone Uli Lee MD Primary Care Provider [phone] Mercedez Hodge MD Unavailable Uli Lee MD Unavailable [phone] Imani Holman AIR QUALITY CHEMIST Unavailable Uli Lee MD Unavailable [phone] Imani Bennett APRN AIR QUALITY CHEMIST Unavailable + Uli Lee MD Unavailable +[phone] Imani Bennett APRN AIR QUALITY CHEMIST Unavailable + Uli Lee MD Unavailable +[phone] Uli Lee MD Unavailable +[phone] Uli Lee MD Unavailable [phone] Imani Bennett APRN AIR QUALITY CHEMIST Unavailable + Imani Bennett APRN AIR QUALITY CHEMIST Unavailable + Encounter Details Date Type Department Care Team (Late st Contact Info) Description 07/10/2021 Documentation Only INTERFACED REPORT Unknown, Provider Social History Tobacco Use Types Packs/Day Years Used Date Smoking Tobacco: Former Cigarettes Q uit: 08/2017 Smokeless Tobacco: Former Comments:dad smokes outside of house Alcohol Use Standard Drinks/Week Comments No 0 (1 standard drink = 0.6 oz pur e alcohol) PHQ-2 Answer Date Recorded PHQ-2 Total Score (Adult) - Positive if 3 or more points; Administer PHQ-9 if positive 3 05/03/2021 Comments No Sex and Gender Information Value Date Recorded Sex Assigned at Female 01/26/2020 10:31 AM CDT Legal Sex Female 4:42 AM SLD EDUCATIONAL AIDE Gender Identity Female 01/26/2020 10:31 AM CDT Sexual Orientation Straight 01/26/2020 10 :31 AM CDT COVID-19 Exposure Response Date Recorded In the last month, have you been in contact with someone who was confirmed or suspected to have Coronavirus / COVID-19? No / Unsure 07/10/2021 8:37 AM SLD EDUCATIONAL AIDE documented as of this encounter Plan of Treatment Not on file documented as of this encounter Visit Diagnoses Not on filedocumented in this encounter Additional Health Concerns Infection Onset Date Last Indicated Resolved Time Rule Out COVID-19 07/10/2021 07/10/2021 07/10/2021 9:43 AM SLD EDUCATIONAL AIDE Influenza 07/10/2021 07/10/2021 07/17/2021 11:3 9 PM SLD EDUCATIONAL AIDE Rule Out COVID-19 12/09/2021 12/09/2021 12/09/2021 6:55 PM CDT COVID-19 12/09/2021 12/09/2021 12/30/2021 11:4 1 PM CDT Rule Out COVID-19 07/30/2022 07/30/2022 07/31/2022 5:53 PM SLD EDUCATIONAL AIDE ESBL 07/30/2022 07/30/2022 Rule Out COVID-19 12/31/2022 12/31/2022 12/31/2022 7:30 AM CDT Rule Out C-difficile 02/28/2024 03/04/2024 024 11:39 PM CDT Assessment Noted Time PHQ-9 Depression Total Score: 11 021 7:03 AM SLD EDUCATIONAL AIDE documented as of this encounter Care Teams Table Games Dealer Relationship Specialty Start Date End Date Uli Lee MD [address] [place] [address], [place] [address] PCP - General 11/19/05 Mercedez Hodge MD [address] [facility] [id number] [place] [address] Assigned Neuroscience Provider 05/14/21 11/02/22 Uli Lee MD [address] [place] [address], [place] [address] Assigned PCP 06/11/21 10/14/21 Imani Holman AIR QUALITY CHEMIST [address] [place] [address] Assigned PCP 10/15/21 04/20/22 Uli Lee MD [address] [place] [address] 98238 Assigned PCP 04/21/22 08/24/22 Imani Bennett APRN AIR QUALITY CHEMIST [address] [place] [address] 81952 Assigned PCP 08/25/22 09/14/22 Uli Lee MD [address] [place] [address] 71382 Assigned PCP 09/15/22 10/05/22 Imani Bennett APRN AIR QUALITY CHEMIST [address] [place] [address] 23710 Assigned PCP 10/06/22 01/18/23 Uli Lee MD [address] [place] [address] [phone] Assigned PCP 01/19/23 05/24/23 Uli Lee MD [address] [place] [address] [phone] Assigned Pain Medication Provider 02/02/23 02/22/23 Uli Lee MD [address] [place] [address] [phone] Assigned Pain Medication Provider 03/16/23 05/31/23 Imani Bennett APRN AIR QUALITY CHEMIST [address] [place] [address] [phone] Assigned Pain Medication Provider 06/01/23 06/26/23 Imani Bennett APRN AIR QUALITY CHEMIST [address] [place] [address] [phone] Assigned PCP 05/25/23 documented as of this encounter
--- OUTSIDE RECORDS SUMMARY | 2024-04-12 07:09 | XMS_ITS | Encounter Summary ---
Author Organization [facility] Address [facility] [place] [address] Care Team Providers Care Hat Presser Name Role Phone Uli Lee MD Primary Care Provider [phone] Uli Lee MD Unavailable [phone] Imani Holman MOBILE SECURITY SPECIALIST Unavailable Mercedez Hodge MD Unavailable [phone] Uli Lee MD Unavailable [phone] Imani Holman MOBILE SECURITY SPECIALIST Unavailable +[phone] Uli Lee MD Unavailable +[phone] Imani Bennett APRN MOBILE SECURITY SPECIALIST Unavailable + Uli Lee MD Unavailable [phone] Imani Bennett APRN MOBILE SECURITY SPECIALIST Unavailable + Uli Lee MD Unavailable [phone] Uli Lee MD Unavailable [phone] Uli Lee MD Unavailable [phone] Imani Bennett APRN MOBILE SECURITY SPECIALIST Unavailable + Imani Bennett APRN MOBILE SECURITY SPECIALIST Unavailable + Encounter Details Date Type Department Care Team (Late st Contact Info) Description 01/20/2021 MyC Medical Advice [place] [address] [place] [address] Katia Dale RN Social History Tobacco Use Types Packs/Day Years [...] AM CDT Legal Sex Female 4:42 AM TANK OPERATOR Gender Identity Female 01/26/2020 10:31 AM CDT Sexual Orientation Straight 01/26/2020 10 :31 AM CDT COVID-19 Exposure Response Date Recorded In the last month, have you been in contact with someone who was confirmed or suspected to have Coronavirus / COVID-19? No / Unsure 01/15/2021 12:24 AM CDT documented as of this encounter Plan of Treatment Not on file documented as of this encounter Visit Diagnoses Not on filedocumented in this encounter Additional Health Concerns Infection Onset Date Last Indicated Resolved Time Rule Out COVID-19 07/10/2021 07/10/2021 07/10/2021 9:43 AM TANK OPERATOR Influenza 07/10/2021 07/10/2021 07/17/2021 11:3 9 PM TANK OPERATOR Rule Out COVID-19 12/09/2021 12/09/2021 12/09/2021 6:55 PM CDT COVID-19 12/09/2021 12/09/2021 12/30/2021 11:4 1 PM CDT Rule Out COVID-19 07/30/2022 07/30/2022 07/31/2022 5:53 PM TANK OPERATOR ESBL 07/30/2022 07/30/2022 Rule Out COVID-19 12/31/2022 12/31/2022 12/31/2022 7:30 AM CDT Rule Out C-difficile 02/28/2024 03/04/20242 024 11:39 PM CDT Assessment Noted Time PHQ-9 Depression Total Score: 10 021 10:57 AM CDT documented as of this encounter Care Teams Hat Presser Relationship Specialty Start Date End Date Uli Lee MD [address] [place] [address] PCP - General 11/19/05 Uli Lee MD [address] [place] [address] 41917 Assigned PCP 03/13/20 01/28/21 Imani Holman, MOBILE SECURITY SPECIALIST [address] [place] [address] Assigned PCP 01/29/21 06/10/21 Mercedez Hodge MD [address] [place] [id number] [place] [address] Assigned Neuroscience Provider 05/14/21 11/02/22 Uli Lee MD [address] [place] [address] Assigned PCP 06/11/21 10/14/21 Imani Holman, MOBILE SECURITY SPECIALIST [address] [place] [address]65[address] Assigned PCP 10/15/21 04/20/22 Uli Lee MD [address] [place] [address] 66[address] Assigned PCP 04/21/22 08/24/22 Imani Bennett APRN MOBILE SECURITY SPECIALIST [address] [place] [address], [place] [address] Assigned PCP 08/25/22 09/14/22 Uli Lee MD [address] [place] [address], [place] [address] Assigned PCP 09/15/22 10/05/22 Imani Bennett APRN MOBILE SECURITY SPECIALIST [address] [place] [address], [place] [address] Assigned PCP 10/06/22 01/18/23 Uli Lee MD [address] [place] [address], [place] [address] Assigned PCP 01/19/23 05/24/23 Uli Lee MD [address] [place] [address], [place] [address] Assigned Pain Medication Provider 02/02/23 02/22/23 Uli Lee MD [address] [place] [address], [place] [address] Assigned Pain Medication Provider 03/16/23 05/31/23 Imani Bennett APRN MOBILE SECURITY SPECIALIST [address] [place] [address], [place] [address] Assigned Pain Medication Provider 06/01/23 06/26/23 Imani Bennett APRN MOBILE SECURITY SPECIALIST [address] [place] [address], [place] [address] Assigned PCP 05/25/23 documented as of this encounter
--- OUTSIDE RECORDS SUMMARY | 2024-04-12 07:09 | XMS_ITS | Encounter Summary ---
Author Organization [facility] Address [address] [place] [address] Care Team Providers Care Operator Maintainer Name Role Phone Uli Lee MD Primary Care Provider [phone] Cherie Tabor RN Unavailable [phone] sSherrie RN Unavailable [phone] Uli Lee MD Unavailable [phone] Uli Lee MD Unavailable +[phone] Keisah Mtz MD Unavailable Unavaila Uli Kauffman MD Unavailable +[phone] Imani Holman DIESEL ELECTRICIAN Unavailable [phone] Mercedez Hodge MD Unavailable Uli Lee MD Unavailable [phone] Imani Holman DIESEL ELECTRICIAN Unavailable [phone] Uli Lee MD Unavailable +[phone] Imani Bennett APRN DIESEL ELECTRICIAN Unavailable + Uli Lee MD Unavailable +[phone] Imani Bennett APRN DIESEL ELECTRICIAN Unavailable + Uli Lee MD Unavailable Uli Lee MD Unavailable [phone] Uli Lee MD Unavailable Imani Bennett APRN DIESEL ELECTRICIAN Unavailable + Imani Bennett APRN DIESEL ELECTRICIAN Unavailable + Encounter Details Date Type Department Care Team (Late st Contact Info) Description 09/19/[address] [phone] [place] [address] [place] [address] ER REPORT (Primary Dx) Social History Tobacco Use Types Packs/Day Years Used Date Smoking Tobacco: Former Cigarettes Q uit: 2020 Smokeless Tobacco: Former Comments:dad smokes outside of house Alcohol Use Standard Drinks/Week Comments Not Currently 0 (1 standard drink = 0.6 oz pur e alcohol) Comments No Sex and Gender Information Value Date Recorded Sex Assigned at Female 01/26/2020 10:31 AM CDT Legal Sex Female 4:42 AM FRAME CLEANER Gender Identity Female 01/26/2020 10:31 AM CDT Sexual Orientation Straight 01/26/2020 10 :31 AM CDT documented as of this encounter Plan of Treatment Not on file documented as of this encounter Visit Diagnoses Diagnosis ER REPORT- Primary documented in this encounter Additional Health Concerns Infection Onset Date Last Indicated Resolved Time Rule Out COVID-19 04/10/2020 04/10/2020 05/01/2020 11:40 PM FRAME CLEANER Rule Out COVID-19 07/10/2021 07/10/2021 07/10/2021 9:43 AM FRAME CLEANER Influenza 07/10/2021 07/10/2021 07/17/2021 11:3 9 PM FRAME CLEANER Rule Out COVID-19 12/09/2021 12/09/2021 12/09/2021 6:55 PM CDT COVID-19 12/09/2021 12/09/2021 12/30/2021 11:4 1 PM CDT Rule Out COVID-19 07/30/2022 07/30/2022 07/31/2022 5:53 PM FRAME CLEANER ESBL 07/30/2022 07/30/2022 Rule Out COVID-19 12/31/2022 12/31/2022 12/31/2022 7:30 AM CDT Rule Out C-difficile 02/28/2024 03/04/2024 024 11:39 PM CDT documented as of this encounter Care Teams Operator Maintainer Relationship Specialty Start Date End Date Uli Lee MD [address] [place] [address] PCP - General 11/19/05 Uli Lee MD [address] [place] [address] [phone] PCP - Assigned PCP 08/18/17 08/05/18 Cherie Tabor RN Lead Ip Paralegal Primary Care - CC 08/22/17 Sherrie Chou RN Clinic Ip Paralegal Primary Care - CC 05/05/1805/06/18 Uli Lee MD [address] [place] [address]165 Assigned PCP 08/18/17 07/04/19 Keisha Mtz MD Assigned PCP 07/05/19 03/12/20 Uli Lee MD [address] [place] [address] 56434 Assigned PCP 03/13/20 01/28/21 Imani Holman, DIESEL ELECTRICIAN [address] [place] [address], [place] [address] Assigned PCP 01/29/21 06/10/21 Mercedez Hodge MD 9 [facility] [id number] [place] [address] Assigned Neuroscience Provider 05/14/21 11/02/22 Uli Lee MD [address] [place] [address], [place] [address] Assigned PCP 06/11/21 10/14/21 Imani Holman DIESEL ELECTRICIAN [address] [place] [address], [place] [address] Assigned PCP 10/15/21 04/20/22 Uli Lee MD [address] [place] [address], [place] [address] Assigned PCP 04/21/22 08/24/22 Imani Bennett APRN DIESEL ELECTRICIAN [address] [place] [address], [place] [address] Assigned PCP 08/25/22 09/14/22 Uli Lee MD [address] [place] [address], [place] [address] Assigned PCP 09/15/22 10/05/22 Imani Bennett APRN DIESEL ELECTRICIAN [address] [place] [address], [place] [address] Assigned PCP 10/06/22 01/18/23 Uli Lee MD [address] [place] [address], [place] [address] Assigned PCP 01/19/23 05/24/23 Uli Lee MD [address] [place] [address] [phone] Assigned Pain Medication Provider 02/02/23 02/22/23 Uli Lee MD [address] [place] [address], [place] [phone] Assigned Pain Medication Provider 03/16/23 05/31/23 Imani Bennett APRN DIESEL ELECTRICIAN [address] [place] [address] 164662 Assigned Pain Medication Provider 06/01/23 06/26/23 Imani Bennett APRN DIESEL ELECTRICIAN [address] [place] [address] [phone] Assigned PCP 05/25/23 documented as of this encounter
--- OUTSIDE RECORDS SUMMARY | 2024-04-12 07:09 | XMS_ITS | Encounter Summary ---
Author Organization [facility] Address [address] [place] [address] Care Team Providers Care Registered Radiographer Name Role Phone Uli Lee MD Primary Care Provider [phone] Cherie Tabor RN Unavailable [phone] sSherrie RN Unavailable [phone] Uli Lee MD Unavailable [phone] Uli Lee MD Unavailable +[phone] Keisha Mtz MD Unavailable Unavaila Uli Kauffman MD Unavailable +[phone] Imani Holman FIRST HELPER Unavailable [phone] Mercedez Hodge MD Unavailable Uli Lee MD Unavailable +[phone] Imani Holman FIRST HELPER Unavailable +[phone] Uli Lee MD Unavailable +[phone] Imani Bennett APRN FIRST HELPER Unavailable + Uli Lee MD Unavailable +[phone] Imani Bennett APRN FIRST HELPER Unavailable + Uli Lee MD Unavailable +[phone] Uli Lee MD Unavailable +[phone] Uli Lee MD Unavailable +[phone] Imani Bennett COREMAKER SUPERVISOR FIRST HELPER Unavailable + Imani Bennett COREMAKER SUPERVISOR FIRST HELPER Unavailable + Encounter Details Date Type Department Care Team (Latest Contact Info) Description 07/09/2016 Historic Results Social History Tobacco Use Types Packs/Day Years Used Date Smoking Tobacco: Never Smokeless Tobacco: Never Comments:dad smokes in the h ouse Alcohol Use Standard Drinks/Week Comments No 0 (1 standard drink = 0.6 oz pur e alcohol) Comments No Sex and Gender Information Value Date Recorded Sex Assigned at Female 01/26/2020 10:31 AM CDT Legal Sex Female 4:42 AM PRESIDENT PRACTICING UROLOGIST Gender Identity Female 01/26/2020 10:31 AM CDT Sexual Orientation Straight 01/26/2020 10 :31 AM CDT documented as of this encounter Plan of Treatment Not on file documented as of this encounter Visit Diagnoses Not on filedocumented in this encounter Additional Health Concerns Infection Onset Date Last Indicated Resolved Time Rule Out COVID-19 04/10/2020 04/10/2020 05/01/2020 11:40 PM PRESIDENT PRACTICING UROLOGIST Rule Out COVID-19 07/10/2021 07/10/2021 07/10/2021 9:43 AM PRESIDENT PRACTICING UROLOGIST Influenza 07/10/2021 07/10/2021 07/17/2021 11:3 9 PM PRESIDENT PRACTICING UROLOGIST Rule Out COVID-19 12/09/2021 12/09/2021 12/09/2021 6:55 PM CDT COVID-19 12/09/2021 12/09/2021 12/30/2021 11:4 1 PM CDT Rule Out COVID-19 07/30/2022 07/30/2022 07/31/2022 5:53 PM PRESIDENT PRACTICING UROLOGIST ESBL 07/30/2022 07/30/2022 Rule Out COVID-19 12/31/2022 12/31/2022 12/31/2022 7:30 AM CDT Rule Out C-difficile 02/28/2024 03/04/2024 024 11:39 PM CDT Assessment Noted Time PHQ-9 Depression Total Score: 10 017 7:13 AM PRESIDENT PRACTICING UROLOGIST documented as of this encounter Care Teams Registered Radiographer Relationship Specialty Start Date End Date Uli Lee MD [address] [place] [address] PCP - General 11/19/05 Uli Lee MD [address] [place] [address] 44492 PCP - Assigned PCP 08/18/17 08/05/18 Cherie Tabor, RN Lead Gem Carver Primary Care - CC 08/22/17 Sherrie Chou RN Clinic Gem Carver Primary Care - CC 05/05/1805/06/18 Uli Lee MD [address] [place] [address] 49170 Assigned PCP 08/18/17 07/04/19 Keisha Mtz MD Assigned PCP 07/05/19 03/12/20 Uli Lee MD [address] [place] [address] 12387 Assigned PCP 03/13/20 01/28/21 Imani Holman, ABEBA [address] [place] [address] 76633 Assigned PCP 01/29/21 06/10/21 Mercedez Hodge MD [address] [facility] [place] [id number] [place] [address] Assigned Neuroscience Provider 05/14/21 11/02/22 Uli Lee MD [address] [place] [address], [place] [address] Assigned PCP 06/11/21 10/14/21 Imani Holman, FIRST HELPER [address] [place] [address], [place] [address] Assigned PCP 10/15/21 04/20/22 Uli Lee MD [address] [place] [address], [place] [address] Assigned PCP 04/21/22 08/24/22 Imani Bennett APRN FIRST HELPER [address] [place] [address], [place] [address] Assigned PCP 08/25/22 09/14/22 Uli Lee MD [address] [place] [address], [place] [address] Assigned PCP 09/15/22 10/05/22 Imani Bennett APRN FIRST HELPER [address] [place] [address], [place] [address] Assigned PCP 10/06/22 01/18/23 Uli Lee MD [address] [place] [address], [place] [address] Assigned PCP 01/19/23 05/24/23 Uli Lee MD [address] [place] [address] 97992 Assigned Pain Medication Provider 02/02/23 02/22/23 Uli Lee MD [address] [place] [address] [phone] Assigned Pain Medication Provider 03/16/23 05/31/23 Imani Bennett APRN FIRST HELPER [address] [place] [address] [phone] Assigned Pain Medication Provider 06/01/23 06/26/23 Imani Bennett APRN FIRST HELPER [address] [place] [address] 78[address] Assigned PCP 05/25/23 documented as of this encounter
--- OUTSIDE RECORDS SUMMARY | 2024-04-12 07:09 | XMS_ITS | Clinical Summary ---
[facility] [address] [place] [address] Care Team Providers Care Rn Procedure Name Role Phone Uli Lee MD Primary Care Provider [phone] Source Comments You are receiving this document as you are listed as the primary care provider,follow-up provider, or the patient has been referred to you for consultation.This is in compliance with the Medicare and[facility] EHR Incentive Program,which states Providers who transition their patient to another setting of careor provider of care or refers their patient to another provider of care shouldprovide summary care record for each transition of care or referral. [employer] Allergies Active Allergy Reactions Criticality Noted Date Comments Avocado Itching 04/05/2023 Doxycycline Nausea And Vomiting 04/18/2020 Hydrocodone Nausea Low 12/09/2018 And dizziness Nuts Itching 04/05/2023 Medications Medication Sig Dispensed Refills Start Date End Date Status FLOVENT HFA 110 MCG/ACT inhaler Inhale 2 Puffs two times a day. 12/21/2019 Active ibuprofen (MOTRIN) 200 MG tablet Take 1 Tablet (200 mg) by mouth. Active ALBUterol sulfate HFA 108 (90 Base) MCG/ACT inhaler Inhale 1-2 Puffs every 4 hours as needed for Wheezing or Shortness of Breath. 1 Each 02/03/2021 Active ondansetron (ZOFRAN-ODT) 4 MG disintegrating tabletIndications:Abd ominal pain, vomiting, and diarrhea Take 1 Tablet (4 mg) by mouth every 8 hours as needed for Nausea. 10 Tablet 08/24/2021 Active XARELTO 15 MG tablet Take 1 Tablet (15 mg) by mouth two times a day. 08/31/2022 Active hydrOXYzine HCl (ATARAX) 50 MG tablet take 1-2 tablets Q6 hours prn pain Active metoclopramide (REGLAN) 5 MG tablet Take 1 Tablet (5 mg) by mouth 4 times a day. 03/19/2023 Active ipratropium-albuterol (COMBIVENT RESPIMAT) 20-100 mcg/actuation inhaler Inhale 1 Puff. Active ORILISSA 150 MG TABS Take 1 Tablet (150 mg) by mouth daily. Active dicyclomine (BENTYL) 20 MG tablet TAKE 1 TABLET BY MOUTH UP TO FOUR TIMES DAILY NEEDED FOR ABDOMINAL CRAMPS OR PAIN Active clotrimazole (MYCELEX) 10 MG promise SMARTSI Lozenge(s) By Mouth 4 Times Daily 03/15/2023 Active acetaminophen 500 MG capsule Take 2 Capsules (1,000 mg) by mouth every 6 hours. Active methylPREDNISolone (MEDROL 21 TABLET DOSEPACK) 4 MG tablet Take 1 Tablet (4 mg) by mouth .. follow package directions 21 Tablet 07/22/2023 Active Additional Information Patient not taking.Reported on 11/17/2023 cyclobenzaprine (FLEXERIL) 5 MG tablet Take 1-2 Tablets (5-10 mg) by mouth two times daily as needed for Muscle Spasms (neck and back pain). 30 Tablet 07/22/2023 Active Active Problems Problem Noted Date Diagnosed Date Gastroesophageal reflux disease 08/09/2014 Recurrent major depression in remission 04/09/20 13 Mild intermittent asthma 09/25/2011 Obsessive-compulsive disorder 08/12/2008 Resolved Problems Problem Noted Date Diagnosed Date Resolved Date Encounter for supervision of normal 10/01/19 18 03/27/2018 Chronic pelvic pain in female 10/18/2015 11/14/2015 Pain in female pelvis 11/30/20142015 Overview (01/23/2017): Pelvic pain Family History Medical History Relation Name Comments Depression Father Depression Mother Eclampsia Mother Cancer, Breast Paternal Aunt in her 30s? Relation Name Status Comments Father Alive Mother Alive Brother Alive Maternal Grandfather Maternal Grandmother Alive Paternal Aunt Paternal Grandfather Alive Paternal Grandmother Sister Social History Tobacco Use Types Packs/Day Years Used Date Smoking Tobacco: Never Cigarettes Smokeless Tobacco: Never Alcohol Use Standard Drinks/Week Comments No 0 (1 standard drink = 0.6 oz pur e alcohol) none AUDIT-C Answer Date Recorded Q1: How often do you have a drink containing alc ohol? Never 05/08/2020 Average Number of Drinks Not on file 020 Frequency of Binge Drinking Not on file 11/2019 Sex and Gender Information Value Date Recorded Sex Assigned at Not on file Gender Identity Not on file Sexual Orientation Not on file Last Filed Vital Signs Vital Sign Reading Time Taken Comments Blood Pressure 122/85 12/18/2022 8:03 AM CDT Pulse 83 12/18/2022 8:03 AM CDT Temperature 36.7 ??C (98.1 ??F) 11/17/2023 12:13 PM C DT Respiratory Rate 16 12/18/2022 8:03 AM CDT Oxygen Saturation 100% 09/16/2022 8:30 AM CDT Inhaled Oxygen Concentration - - Weight 85.3 kg (188 lb) 11/17/2023 12:13 PM CDT Height 170.2 cm (5' 7) 11/17/2023 12:13 PM CDT Body Mass Index 29.44 11/17/2023 12:13 PM CDT Plan of Treatment Health Maintenance Due Date Last Done Comments Cervical Cancer Screening Due 1995 Hep C Screening (Preventive Services) 1995 Asthma ACT 1999 Adult Preventive Visit 2013 HepB (1) 2014 Pneumococcal (2 - PCV) 04/11/2021 04/11/2020 COVID-19 Vaccine (1 - season) 2024 Influenza (#1) 2024 04/11/2020, 04/04, 03/11/2018, Additional history exists DTaP/Tdap/Td (10 - Tdap) 05/18/2032 022, 03/11/2018, 08/09/2014, Additional history exists Zoster/Shingles (1 of 2) 2045 Hib Completed 07/16/1996, 10/03, 1995, Additional history exists IPV (Polio) Completed 01/10/2001, 10/03, 1995, Additional history exists MCV4 Completed 02/05/2012, 09/01/2007 HPV Vaccine Completed 01/15/2013, 07/04, 09/01/2007 HIV Screening (Preventive Services) Completed 09/30/2017 Chlamydia Discontinued 09/17/2023, 09/01, 01/30/2022, Additional history exists HepA Aged Out No longer eligi ble based on patient's age to complete this topic Infant RSV Aged Out No longer eligi ble based on patient's age to complete this topic Procedures Procedure Name Priority Date/Time Associated Diagnosis Comments CHLAMYDIA & GC (14 YEARS & OLDER) Routine 11/18/2021 12:43 PM CDT Pelvic pain in female HIV-1 P24 AND HIV-1/HIV-2 ANTIBODIES Routine 09/30/2017 3:22 PM CDT Screening examination for venereal disease from Last 3 Months or Most Recently Relevant to Health Maintenance Results * Chlamydia & GC (14 Years and Older) - Collect in Clinic Today (11/18/2021 12:43 PM CDT) Chlamydia Trachomatis STD Not Detected Not Detected 11/20/2021 12:59 PM CDT [facility] N. gonorrhoeae STD Not Detected Not Detected 11/20/2021 12:59 PM CDT [facility] Swab STD SPECIMEN FROM VAGINA / Unknown Non-blood Collection / Unknown 11/18/2021 12:43 PM CDT 11/18/2021 12:50 PM CDT Narrative [facility] - 11/20/2021 12:59 PM CDT Test performed by Vending Technician Mediated Amplification (TMA). Sharita Tay MD LAB_1 [facility] [address] [place] [address], [facility] [phone] * LAB HIV-1 p24 AND HIV-1/HIV-2 ANTIBODIES (09/30/2017 3:22 PM CDT) HIV-1 p24 Ag and HIV-1/HIV-2 Ab Nonreactive Nonreactive PN SOFT 09/30/2017 3:22 PM CDT 09/30/2017 9:16 PM CDT Narrative [facility] - 09/30/2017 9:56 PM CDT Performed at [facility] [address] [place] [address] CLIA number [id number] Jim Dale MD LAB_1 [facility] [address] [place] [address] from Last 3 Months or Most Recently Relevant to Health Maintenance Care Teams Rn Procedure Relationship Specialty Start Date End Date Uli Lee MD [address] [place] [address] [id number] PCP - General 11/25/14
--- OUTSIDE RECORDS SUMMARY | 2024-04-12 07:09 | XMS_ITS | Encounter Summary ---
Author Organization [facility] Address [address] [place] [address] Care Team Providers Care Customer Solutions Coordinator Name Role Phone Robbie Lee MD Primary Care Provider [phone] sSherrie RN Unavailable [phone] Robbie Lee MD Unavailable [phone] Robbie Lee MD Unavailable [phone] Keisha Mtz MD Unavailable Unavaila ble Robbie Lee MD Unavailable [phone] Imani Holman REGISTERED RADIATION THERAPIST Unavailable [phone] Mercedez Hodge MD Unavailable Robbie Lee MD Unavailable [phone] Imani Holman REGISTERED RADIATION THERAPIST Unavailable [phone] Robbie Lee MD Unavailable [phone] Imani Bennett APRN REGISTERED RADIATION THERAPIST Unavailable + Robbie Lee MD Unavailable [phone] Imani Bennett APRN REGISTERED RADIATION THERAPIST Unavailable + Robbie Lee MD Unavailable [phone] Robbie Lee MD Unavailable Robbie Lee MD Unavailable Imani Bennett APRN REGISTERED RADIATION THERAPIST Unavailable + Imani Bennett APRN REGISTERED RADIATION THERAPIST Unavailable + Reason for Referral * Diagnostic Imaging Ultrasound - Closed Specialty Diagnoses / Procedures Referred By Contac t Referred To Contact Diagnoses related condition, antepartum Procedures [facility] Single Robbie Lee MD Phone: tel: fax: Referral ID Status Reason Start Date Expiration Date Visits Re quested Visits Authorized [id number] Closed 04/18/2018 04/18/2019 1 1 PMENT OILER Encounter Details Date Type Department Care Team (Late st Contact Info) Description 04/18/2018 Orders Only [facility] [address] [place] [address] Robbie Lee MD [address] [place] [address] related condition, antepartum (Primary Dx) Social History Tobacco Use Types Packs/Day Years Used Date Smoking Tobacco: Former Smokeless Tobacco: Never Comments:dad smokes outside of house Alcohol Use Standard Drinks/Week Comments No 0 (1 standard drink = 0.6 oz pur e alcohol) Comments Yes Sex and Gender Information Value Date Recorded Sex Assigned at Female 01/26/2020 10:31 AM CDT Legal Sex Female 4:42 AM EQUIPMENT OILER Gender Identity Female 01/26/2020 10:31 AM CDT Sexual Orientation Straight 01/26/2020 10 :31 AM CDT documented as of this encounter Plan of Treatment Not on file documented as of this encounter Results * [facility] Single (04/18/2018 1:14 PM EQUIPMENT OILER) Anatomical Region Laterality Modality Ultrasound 04/18/2018 12:5 2 PM EQUIPMENT OILER Impressions 04/18/2018 1:16 PM EQUIPMENT OILER IMPRESSION ----- Normal NICOL. BPP is reassuring. Narrative 04/18/2018 1:16 PM EQUIPMENT OILER BPP ----- Pat. Name: ANGIE HALE Study Date: 04/18/2018 12:52pm Pat. NO: [id number] Referring ??: ROBBIE LEE Site: [facility] Human Resources Benefits Administrator: Janeen Negro RDMS : 1995 Age: 23 ----- INDICATION ----- Decreased Movement METHOD ----- Transabdominal ultrasound examination. View: Sufficient ----- Goodman . Number of fetuses: 1 DATING ----- ? Date ?Details ?Gest. age ?ZULMA Prior assessment ? 09/13/2017 ? GA: 7 w + 0 d ?38 w + 0 d ? 05/02/2018 Assigned dating ?Dating performed on 04/18/2018, based on the prior assessment (on 09/13/2017) ? 38 w + 0 d ? 05/02/2018 GENERAL EVALUATION ----- Cardiac activity present. FHR 135 bpm. movements visualized. Presentation cephalic. Placenta posterior. Umbilical cord 3 vessel cord. AMNIOTIC FLUID ASSESSMENT ----- Amount of AF: normal MVP 5.8 cm. NICOL 15.6 cm. Q1 5.8 cm, Q2 4.3 cm, Q3 2.8 cm, Q4 2.8 cm BIOPHYSICAL PROFILE ----- 2: breathing movements 2: Gross body movements 2: tone 2: Amniotic fluid volume 8/8 Biophysical profile score Interpretation: normal RECOMMENDATION ----- We discussed the findings on today's ultrasound with the patient. Further ultrasound studies as clinically indicated. Return to primary provider for continued care. Thank-you for the opportunity to participate in the care of this patient. If you have questions regarding today's evaluation or if we can be of further service, please contact the [facility]. anomalies may be present but not detected Procedure Note Fernando Hidalgo MD - 04/18/2018 BPP ----- Pat. Name:Mo HALE Date:04/18/2018 12:52pm Pat. NO: [id number] MD:ROBBIE LEE Site:[facility]:Janeen Negro RDMS :1995Age:23 ----- INDICATION ----- Decreased Movement METHOD ----- Transabdominal ultrasound examination. View: Sufficient ----- Goodman . Number of fetuses: 1 DATING ----- DateDetailsGest. age ZULMA Prior assessment 09/13/2017 GA: 7 w +0 d38 w + 0 d 05/02/2018 Assigned dating Dating performed on 04/18/2018, based onthe prior assessment (on 09/13/2017) 38 w + 0 d107/02/2017 GENERAL EVALUATION ----- Cardiac activity present. FHR 135 bpm. movements visualized. Presentation cephalic. Placenta posterior. Umbilical cord 3 vessel cord. AMNIOTIC FLUID ASSESSMENT ----- Amount of AF: normal MVP 5.8 cm. NICOL 15.6 cm. Q1 5.8 cm, Q2 4.3 cm, Q3 2.8 cm, Q4 2.8 cm BIOPHYSICAL PROFILE ----- 2: breathing movements 2: Gross body movements 2: tone 2: Amniotic fluid volume 8/8 Biophysical profile score Interpretation: normal RECOMMENDATION ----- We discussed the findings on today's ultrasound with the patient. Further ultrasound studies as clinically indicated. Return to [facility] for continued care. Thank-you for the opportunity to participate in the care of this patient.If you have questions regarding today's evaluation or if we can be offurther service, please contact the [facility]. anomalies may be present but not detected IMPRESSION ----- Normal NICOL. BPP is reassuring. us Robbie Lee MD [facility] ORDERABLES Edited Result - Final documented in this encounter Visit Diagnoses Diagnosis related condition, antepartum- Primary related condition, antepartum documented in this encounter Additional Health Concerns Infection Onset Date Last Indicated Resolved Time Rule Out COVID-19 04/10/2020 04/10/2020 05/01/2020 11:40 PM EQUIPMENT OILER Rule Out COVID-19 07/10/2021 07/10/2021 07/10/2021 9:43 AM EQUIPMENT OILER Influenza 07/10/2021 07/10/2021 07/17/2021 11:3 9 PM EQUIPMENT OILER Rule Out COVID-19 12/09/2021 12/09/2021 12/09/2021 6:55 PM CDT COVID-19 12/09/2021 12/09/2021 12/30/2021 11:4 1 PM CDT Rule Out COVID-19 07/30/2022 07/30/2022 07/31/2022 5:53 PM EQUIPMENT OILER ESBL 07/30/2022 07/30/2022 Rule Out COVID-19 12/31/2022 12/31/2022 12/31/2022 7:30 AM CDT Rule Out C-difficile 02/28/2024 03/04/2024 024 11:39 PM CDT Assessment Noted Time PHQ-9 Depression Total Score: 14 018 7:16 AM CDT documented as of this encounter Care Teams Customer Solutions Coordinator Relationship Specialty Start Date End Date Robbie Lee MD [address] [place] [id number] PCP - General 11/19/05 Robbie Lee MD [address] [place] [address] PCP - Assigned PCP 08/18/17 08/05/18 sSherrie RN Clinic Rn Patient Care Primary Care - CC 05/05/1805/06/18 Robbie Lee MD [address] [place] [address] [id number] Assigned PCP 08/18/17 07/04/19 Keisha Mtz MD Assigned PCP 07/05/19 03/12/20 Robbie Lee MD [address] [place] [address], [place] [address] Assigned PCP 03/13/20 01/28/21 Imani Holman, REGISTERED RADIATION THERAPIST [address] [place] [address], [place] [address] Assigned PCP 01/29/21 06/10/21 Mercedez Hodge MD [address] [place] [id number] [address] Assigned Neuroscience Provider 05/14/21 11/02/22 Robbie Lee MD [address] [place] [address], [place] [address] Assigned PCP 06/11/21 10/14/21 Imani Holman, REGISTERED RADIATION THERAPIST [address] [place] [address], [place] [address] Assigned PCP 10/15/21 04/20/22 Robbie Lee MD [address] [place] [address], [place] [address] Assigned PCP 04/21/22 08/24/22 Imani Bennett APRN REGISTERED RADIATION THERAPIST [address] [place] [address], [place] [address] Assigned PCP 08/25/22 09/14/22 Robbie Lee MD [address] [place] [address], [place] [address] Assigned PCP 09/15/22 10/05/22 Imani Bennett APRN REGISTERED RADIATION THERAPIST [address] [place] [address], [place] [address] Assigned PCP 10/06/22 01/18/23 Robbie Lee MD [address] [place] [address], [place] [address] Assigned PCP 01/19/23 05/24/23 Robbie Lee MD [address] [place] [address], [place] [address] Assigned Pain Medication Provider 02/02/23 02/22/23 Robbie Lee MD [address] [place] [address], [place] [address] Assigned Pain Medication Provider 03/16/23 05/31/23 Imani Bennett APRN REGISTERED RADIATION THERAPIST [address] [place] [address], [place] [address] Assigned Pain Medication Provider 06/01/23 06/26/23 Imani Bennett APRN REGISTERED RADIATION THERAPIST [address] [place] [address], [place] [address] Assigned PCP 05/25/23 documented as of this encounter
--- OUTSIDE RECORDS SUMMARY | 2024-04-12 07:09 | XMS_ITS | Encounter Summary ---
Author Organization [place] Address [address] [facility] [place] [address] Care Team Providers Care Regulatory Compliance Director Name Role Phone Uli Lee MD Primary Care Provider Mercedez Hodge MD Unavailable [phone] Imani Holman SPECIAL NEEDS CHILD CAREGIVER Unavailable [phone] lUi Lee MD Unavailable [phone] Imani Bennett APRN SPECIAL NEEDS CHILD CAREGIVER Unavailable + Uli Lee MD Unavailable [phone] Imani Bennett APRN SPECIAL NEEDS CHILD CAREGIVER Unavailable + Uli Lee MD Unavailable [phone] Uli Lee MD Unavailable [phone] Uli Lee MD Unavailable [phone] Imani Bennett APRN SPECIAL NEEDS CHILD CAREGIVER Unavailable + Imani Bennett APRN SPECIAL NEEDS CHILD CAREGIVER Unavailable + Encounter Details Date Type Department Care Team (Late st Contact Info) Description 12/18/2021 External Order Results [facility] [address] [place] [address] Outside, Provider Social History Tobacco Use Types Packs/Day Years Used Date Smoking Tobacco: Former Cigarettes Q uit: 08/2017 Smokeless Tobacco: Former Comments:dad smokes outside of house Alcohol Use Standard Drinks/Week Comments No 0 (1 standard drink = 0.6 oz pur e alcohol) PHQ-2 Answer Date Recorded PHQ-2 Score 1 11/20/2021 Comments Yes Sex and Gender Information Value Date Recorded Sex Assigned at Female 01/26/2020 10:31 AM CDT Legal Sex Female 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 Yes 12/12/2021 8:06 AM CDT documented as of this encounter Plan of Treatment Not on file documented as of this encounter Procedures Procedure Name Priority Date/Time Associated Diagnosis Comments HEPATITIS C ANTIBODY (EXTERNAL RESULT) Routine 12/18/2021 10:00 AM CDT HEPATITIS B SURFACE ANTIGEN (EXTERNAL RESULT) Routine 12/18/2021 10:00 AM CDT RUBELLA ANTIBODY IGG (EXTERNAL RESULT) Routine 12/18/2021 10:00 AM CDT ABO & RH (EXTERNAL RESULT) Routine 12/18/2021 10:00 AM CDT HIV ANTIGEN ANTIBODY COMBO Routine 12/18/2021 10:00 AM CDT TREPONEMA ABS W REFLEX TO RPR AND TITER Routine 12/18/2021 10:00 AM CDT CBC WITH PLATELETS & DIFFERENTIAL Routine 12/18/2021 10:00 AM CDT URINE CULTURE (OB EXTERNAL RESULT) Routine 12/18/2021 5:17 AM CDT GONORRHEA (EXTERNAL RESULT) Routine 12/18/2021 5:17 AM CDT CHLAMYDIA TRACHOMATIS PCR (EXTERNAL RESULT) Routine 12/18/2021 5:17 AM CDT documented in this encounter Results * Hepatitis B Surface Antigen (External Result) (12/18/2021 10:00 AM CDT) Hepatitis B Surface Antigen (External) NEG Negative NON-INTERFACED (ONBASE SCANS) 12/18/2021 10:0 0 AM CDT Narrative BREEZE PFT - 02/02/2022 9:36 AM CDT Verified by Husam Thompson on 02/02/2022. us Provider Outside LAB - HIM EXTERNAL RESULT Edite d Result - Final Performing Organization Address [facility] Co de Phone Number BREEZE PFT NON-INTERFACED (ONBASE SCANS) * Treponema Abs w Reflex to RPR and Titer (12/18/2021 10:00 AM CDT) Treponema Palldum Antibody (External) Non Reactive Non Reactive NON-INTERFAC ED (ONBASE SCANS) Blood 12/18/2021 10:0 0 AM CDT Narrative BREEZE PFT - 02/02/2022 9:36 AM CDT Verified by Husam Thompson on 02/02/2022. us Provider Outside LAB - BLOOD ORDERABLES Edited R esult - Final BREEZE PFT NON-INTERFACED (ONBASE SCANS) * ABO & RH (External Result) (12/18/2021 10:00 AM CDT) ABO (External) A NON-I NTERFACED (ONBASE SCANS) Rh (External) POS NON-IN TERFACED (ONBASE SCANS) Comment:Antibody Screen= Neg ative 12/18/2021 10:0 0 AM CDT Narrative BREEZE PFT - 02/02/2022 9:36 AM CDT Verified by Husam Thompson on 02/02/2022. us Provider Outside LAB - HIM EXTERNAL RESULT Edite d Result - Final NITESH PFT NON-INTERFACED (ONBASE SCANS) * HIV Antigen Antibody Combo (12/18/2021 10:00 AM CDT) Pathologist [facility] HIV 1&2 Antibody (External) Non Reactive Non Reactive NON-INTERFAC ED (ONBASE SCANS) Blood 12/18/2021 10:0 0 AM CDT Narrative BREEZE PFT - 02/02/2022 9:36 AM CDT Verified by Husam Thompson on 02/02/2022. us Provider Outside LAB - BLOOD ORDERABLES Edited R esult - Final BREEZE PFT NON-INTERFACED (ONBASE SCANS) * CBC with Platelets & Differential (12/18/2021 10:00 AM CDT) Pathologist [facility] WBC Count (External) 9.3 3.4 - 10.8 x10E3/uL NON-INTERFACE D (ONBASE SCANS) RBC Count (External) 4.75 3.77 - 5.28 x10E6/uL NON-INTERFACE D (ONBASE SCANS) Hemoglobin (External) 13.4 11.1 - 15.9 g/dL NON-INTERFACE D (ONBASE SCANS) Hematocrit (External) 41.8 34.0 - 46.6 % NON-INTERFACE D (ONBASE SCANS) MCV (External) 88 79 - 97 fL NON- INTERFACE D (ONBASE SCANS) MCH (External) 28.2 26.6 - 33.0 pg NON-INTERFACE D (ONBASE SCANS) MCHC (External) 32.1 31.5 - 35.7 g/dL NON-INTERFACE D (ONBASE SCANS) RDW (External) 14.1 11.7 - 15.4 % NON-INTERFACE D (ONBASE SCANS) Platelet Count (External) 304 150 - 450 x10E3/uL NON-INTERFACE D (ONBASE SCANS) % Neutrophils (External) 64 Not Estab. % NON-INTERFACE D (ONBASE SCANS) % Lymphocytes (External) 29 Not Estab. % NON-INTERFACE D (ONBASE SCANS) % Monocytes (External) 6 Not Estab. % NON-INTERFACE D (ONBASE SCANS) % Eosinophils (External) 1 Not Estab. % NON-INTERFACE D (ONBASE SCANS) % Basophils (External) 0 Not Estab. % NON-INTERFACE D (ONBASE SCANS) Absolute Neutrophils (External) 5.9 1.4 - 7.0 x10E3/uL NON-INTERFACE D (ONBASE SCANS) Absolute Lymphocytes (External) 2.7 0.7 - 3.1 x10E3/uL NON-INTERFACE D (ONBASE SCANS) Absolute Monocytes (External) 0.6 0.1 - 0.9 x10E3/uL NON-INTERFACE D (ONBASE SCANS) Absolute Eosinophils (External) 0.1 0.0 - 0.4 x10E3/uL NON-INTERFACE D (ONBASE SCANS) Absolute Basophils (External) 0.0 0.0 - 0.2 x10E3/uL NON-INTERFACE D (ONBASE SCANS) % Immature Granulocytes (External) 0 Not Estab. % NON-INTERFACE D (ONBASE SCANS) Absolute Immature Granulocytes (External) 0.0 0.0 - 0.1 x10E3/uL NON-INTERFACE D (ONBASE SCANS) Blood 12/18/2021 10:0 0 AM CDT Ronnie DOWLING PFT - 02/02/2022 9:36 AM CDT Verified by Husam Thompson on 02/02/2022. us Provider Outside LAB - BLOOD ORDERABLES Edited R esult - Final NITESH PFT NON-INTERFACED (ONBASE SCANS) * Hepatitis C Antibody (External Result) (12/18/2021 10:00 AM CDT) Hepatitis C Antibody (External) 0.4 0.0 - 0.9 ratio NON-INTERFACED (ONBASE SCANS) 12/18/2021 10:0 0 AM CDT Ronnie GOMEZE PFT - 02/02/2022 9:36 AM CDT Verified by Husam Thompson on 02/02/2022. us Provider Outside LAB - HIM EXTERNAL RESULT Edite d Result - Final Performing Organization Address [facility]/ZIP Co de Phone Number BREEZE PFT NON-INTERFACED (ONBASE SCANS) * Rubella Antibody IgG (External Result) (12/18/2021 10:00 AM CDT) Rubella Antibody IgG (External) 1.04 Immune >0.99 index NON-INTERFACED (ONBASE SCANS) 12/18/2021 10:0 0 AM CDT Narrative BREEZE PFT - 02/02/2022 9:36 AM CDT Verified by Husam Thompson on 02/02/2022. us Provider Outside LAB - HIM EXTERNAL RESULT Edite d Result - Final Performing Organization Address [facility] de Phone Number BREEZE PFT NON-INTERFACED (ONBASE SCANS) * Urine Culture (OB External Result) (12/18/2021 5:17 AM CDT) Urine Culture OB Nurse Interpretation (External Result) Mixed urogenital cathleen 10,000-25,000 colony forming units per mL NON-INTERFAC ED (ONBASE SCANS) 12/18/2021 5:17 AM CDT Narrative BREEZE PFT - 02/02/2022 9:24 AM CDT Verified by Husam Thompson on 02/02/2022. us Provider Outside LAB - HIM EXTERNAL RESULT Edite d Result - Final BREEZE PFT NON-INTERFACED (ONBASE SCANS) * Gonorrhea (External Result) (12/18/2021 5:17 AM CDT) N Gonorrhea PCR Negative Negative NON-INTERFACE D (ONBASE SCANS) 12/18/2021 5:17 AM CDT Narrative BREEZE PFT - 02/02/2022 9:24 AM CDT Verified by Husam Thompson on 02/02/2022. us Provider Outside LAB - HIM EXTERNAL RESULT Edite d Result - Final BREEZE PFT NON-INTERFACED (ONBASE SCANS) * Chlamydia Trachomatis PCR (External Result) (12/18/2021 5:17 AM CDT) Chlamydia Trachomatis PCR Negative Negative NON-INTERFAC E D (ONBASE SCANS) 12/18/2021 5:17 AM CDT Narrative BREEZE PFT - 02/02/2022 9:24 AM CDT Verified by Husam Thompson on 02/02/2022. us Provider Outside LAB - HIM EXTERNAL RESULT Edite d Result - Final BREEZE PFT NON-INTERFACED (ONBASE SCANS) documented in this encounter Visit Diagnoses Not on filedocumented in this encounter Additional Health Concerns Infection Onset Date Last Indicated Resolved Time COVID-19 12/09/2021 12/09/2021 12/30/2021 11:4 1 PM CDT Rule Out COVID-19 07/30/2022 07/30/2022 07/31/2022 5:53 PM FISHING MANAGER ESBL 07/30/2022 07/30/2022 Rule Out COVID-19 12/31/2022 12/31/2022 12/31/2022 7:30 AM CDT Rule Out C-difficile 02/28/2024 03/04/2024 024 11:39 PM CDT Assessment Noted Time PHQ-9 Depression Total Score: 8 11/21/19 22 4:22 PM CDT documented as of this encounter Care Teams Regulatory Compliance Director Relationship Specialty Start Date End Date Uli Lee MD [address] [place] [address] PCP - General 11/19/05 Mercedez Hodge MD [address] [facility] [id number] [place] [address] Assigned Neuroscience Provider 05/14/21 11/02/22 Imani Holman, SPECIAL NEEDS CHILD CAREGIVER [address] [place] [address], [place] [address] Assigned PCP 10/15/21 04/20/22 Uli Lee MD [address] [place] [address], [place] [phone] Assigned PCP 04/21/22 08/24/22 Imani Bennett APRN SPECIAL NEEDS CHILD CAREGIVER [address] [place] [address] Assigned PCP 08/25/22 09/14/22 Uli Lee MD [address] [place] [address] Assigned PCP 09/15/22 10/05/22 Imani Bennett APRN SPECIAL NEEDS CHILD CAREGIVER [address] [place] [address] 79[address] Assigned PCP 10/06/22 01/18/23 Uli Lee MD [address] [place] [address] 75[address] Assigned PCP 01/19/23 05/24/23 Uli Lee MD [address] [place] [address]28[address] Assigned Pain Medication Provider 02/02/23 02/22/23 Uli Lee MD [address] [place] [address] 332672 Assigned Pain Medication Provider 03/16/23 05/31/23 Imani Bennett APRN SPECIAL NEEDS CHILD CAREGIVER [address] [place] [address] [phone] Assigned Pain Medication Provider 06/01/23 06/26/23 Imani Bennett APRN SPECIAL NEEDS CHILD CAREGIVER [address] [place] [address] [id number] Assigned PCP 05/25/23 documented as of this encounter
--- OUTSIDE RECORDS SUMMARY | 2024-04-12 07:09 | XMS_ITS | Encounter Summary ---
Author Organization [place] Address [address] [place] [address] Care Team Providers Care Supervisor Riprap Placing Name Role Phone Uli Lee MD Primary Care Provider [phone] Mercedez Hodge MD Unavailable [phone] Uli Lee MD Unavailable [phone] Imani Holman FREEZER TUNNEL OPERATOR Unavailable Uil Lee MD Unavailable [phone] Imani Bennett APRN FREEZER TUNNEL OPERATOR Unavailable + Uli Lee MD Unavailable [phone] Imani Bennett APRN FREEZER TUNNEL OPERATOR Unavailable + Uli Lee MD Unavailable [phone] Uli Lee MD Unavailable [phone] Uli Lee MD Unavailable [phone] Imani Bennett APRN FREEZER TUNNEL OPERATOR Unavailable + Imani Bennett APRN FREEZER TUNNEL OPERATOR Unavailable + Encounter Details Date Type Department Care Team (Late st Contact Info) Description 08/05/2021 Documentation Only INTERFACED REPORT Unknown, Provider Social [...] AM CDT Legal Sex Female 4:42 AM HOSPICE REGISTERED NURSE Gender Identity Female 01/26/2020 10:31 AM CDT Sexual Orientation Straight 01/26/2020 10 :31 AM CDT COVID-19 Exposure Response Date Recorded In the last month, have you been in contact with someone who was confirmed or suspected to have Coronavirus / COVID-19? No / Unsure 08/05/2021 2:35 PM HOSPICE REGISTERED NURSE documented as of this encounter Plan of Treatment Not on file documented as of this encounter Visit Diagnoses Not on filedocumented in this encounter Additional Health Concerns Infection Onset Date Last Indicated Resolved Time Rule Out COVID-19 12/09/2021 12/09/2021 12/09/2021 6:55 PM CDT COVID-19 12/09/2021 12/09/2021 12/30/2021 11:4 1 PM CDT Rule Out COVID-19 07/30/2022 07/30/2022 07/31/2022 5:53 PM HOSPICE REGISTERED NURSE ESBL 07/30/2022 07/30/2022 Rule Out COVID-19 12/31/2022 12/31/2022 12/31/2022 7:30 AM CDT Rule Out C-difficile 02/28/2024 03/04/2024 024 11:39 PM CDT Assessment Noted Time PHQ-9 Depression Total Score: 11 021 7:03 AM HOSPICE REGISTERED NURSE documented as of this encounter Care Teams Supervisor Riprap Placing Relationship Specialty Start Date End Date Uli Lee MD [address] [place] [address] PCP - General 11/19/05 Mercedez Hodge MD [address] [facility] [id number] [place] [address] Assigned Neuroscience Provider 05/14/21 11/02/22 Uli Lee MD [address] [place] [address], [place] [address] Assigned PCP 06/11/21 10/14/21 Imani Holman, FREEZER TUNNEL OPERATOR [address] [place] [address], [place] [address] Assigned PCP 10/15/21 04/20/22 Uli Lee MD [address] [place] [address], [place] [address] Assigned PCP 04/21/22 08/24/22 Imani Bennett APRN FREEZER TUNNEL OPERATOR [address] [place] [address], [place] [address] Assigned PCP 08/25/22 09/14/22 Uli Lee MD [address] [place] [address], [place] [address] Assigned PCP 09/15/22 10/05/22 Imani Bennett APRN FREEZER TUNNEL OPERATOR [address] [place] [address], [place] [address] Assigned PCP 10/06/22 01/18/23 Uli Lee MD [address] [place] [address], [place] [address] Assigned PCP 01/19/23 05/24/23 Uli Lee MD [address] [place] [address] [id number] Assigned Pain Medication Provider 02/02/23 02/22/23 Uli Lee MD [address] [place] [address] [phone] Assigned Pain Medication Provider 03/16/23 05/31/23 Imani Bennett APRN FREEZER TUNNEL OPERATOR [address] [place] [address] [phone] Assigned Pain Medication Provider 06/01/23 06/26/23 Imani Bennett APRN FREEZER TUNNEL OPERATOR [address] [place] [address] Assigned PCP 05/25/23 documented as of this encounter
--- OUTSIDE RECORDS SUMMARY | 2024-04-12 07:09 | XMS_ITS | Encounter Summary ---
Author Organization [place] Address [facility] [place] [address] Care Team Providers Care Wedger Name Role Phone Uli Lee MD Primary Care Provider Mercedez Hodge MD Unavailable Uli Lee MD Unavailable [phone] Imani Bennett APRN OPERATIONAL METEOROLOGIST Unavailable + Uli Lee MD Unavailable [phone] Imani Bennett APRN OPERATIONAL METEOROLOGIST Unavailable + Uli Lee MD Unavailable [phone] Uli Lee MD Unavailable [phone] Uli Lee MD Unavailable [phone] Imani Bennett APRN OPERATIONAL METEOROLOGIST Unavailable + Imani Bennett APRN OPERATIONAL METEOROLOGIST Unavailable + Encounter Details Date Type Department Care Team (Late st Contact Info) Description 08/07/2022 [facility] [id number] [place] [address] [address] [facility] [place] [id number] Gerardo Bai PA [address] [place], [place] [address] Social History Tobacco Use Types Packs/Day Years Used Date Smoking Tobacco: Former Cigarettes Q uit: 2020 Smokeless Tobacco: Former Comments:dad smokes outside of house Alcohol Use Standard Drinks/Week Comments Not Currently 0 (1 standard drink = 0.6 oz pur e alcohol) PHQ-2 Answer Date Recorded PHQ-2 Score 1 07/30/2022 Maxie Depression Scale Answer Date Recorded Last EPDS Total Score Not on file 07/08/2022 The thought of harming myself has occurred to me . Never 07/08/2022 Comments No Sex and Gender Information Value Date Recorded Sex Assigned at Female 01/26/2020 10:31 AM CDT Legal Sex Female 4:42 AM SLIDE DEVELOPER Gender Identity Female 01/26/2020 10:31 AM CDT Sexual Orientation Straight 01/26/2020 10 :31 AM CDT COVID-19 Exposure Response Date Recorded In the last 10 days, have yo u been in contact with someone who was confirmed or suspected to have Coronavirus/COVID-19? No / Unsure 08/10/2022 8:49 AM SLIDE DEVELOPER documented as of this encounter Plan of Treatment Not on file documented as of this encounter Visit Diagnoses Not on filedocumented in this encounter Additional Health Concerns Infection Onset Date Last Indicated Resolved Time ESBL 07/30/2022 07/30/2022 Rule Out COVID-19 12/31/2022 12/31/2022 12/31/2022 7:30 AM CDT Rule Out C-difficile 02/28/2024 03/04/2024 024 11:39 PM CDT Assessment Noted Time PHQ-9 Depression Total Score: 4 07/30/19 23 5:35 PM SLIDE DEVELOPER documented as of this encounter Care Teams Wedger Relationship Specialty Start Date End Date Uli Lee MD [address] [place] [address] PCP - General 11/19/05 Mercedez Hodge MD [address] [place] [address] [id number] [place] [address] Assigned Neuroscience Provider 05/14/21 11/02/22 Uli Lee MD [address] [place] [address] Assigned PCP 04/21/22 08/24/22 Imani Bennett APRN OPERATIONAL METEOROLOGIST [address] [place] [address] Assigned PCP 08/25/22 09/14/22 Uli Lee MD [address] [place] [address] Assigned PCP 09/15/22 10/05/22 Imani Bennett APRN OPERATIONAL METEOROLOGIST [address] [place] [address] Assigned PCP 10/06/22 01/18/23 Uli Lee MD [address] [place] [address] Assigned PCP 01/19/23 05/24/23 Uli Lee MD [address] [place] [address] Assigned Pain Medication Provider 02/02/23 02/22/23 Uli Lee MD [address] [place] [address] Assigned Pain Medication Provider 03/16/23 05/31/23 Imani Bennett APRN OPERATIONAL METEOROLOGIST [address] [place] [address] Assigned Pain Medication Provider 06/01/23 06/26/23 Imani Bennett APRN OPERATIONAL METEOROLOGIST [address] [place], [place] [phone] Assigned PCP 05/25/23 documented as of this encounter
--- OUTSIDE RECORDS SUMMARY | 2024-04-12 07:09 | XMS_ITS | Encounter Summary ---
Author Organization [place] Address [facility] [place] [address] Care Team Providers Care Poultry Pinner Name Role Phone Uli Lee MD Primary Care Provider [phone] Uli Lee MD Unavailable [phone] Imani Holman STEEL GRINDER Unavailable Mercedez Hodge MD Unavailable Uli Lee MD Unavailable [phone] Imani Holman STEEL GRINDER Unavailable [phone] Uli Lee MD Unavailable [phone] Imani Bennett APRN STEEL GRINDER Unavailable + Uli Lee MD Unavailable [phone] Imani Bennett APRN STEEL GRINDER Unavailable + Uli Lee MD Unavailable [phone] Uli Lee MD Unavailable [phone] Uli Lee MD Unavailable [phone] Imani Bennett APRN STEEL GRINDER Unavailable + Imani Bennett APRN STEEL GRINDER Unavailable + Encounter Details Date Type Department Care Team (Late st Contact Info) Description 01/03/2021 [facility] Medical Advice [address] [place] [phone] Imani Holman, STEEL GRINDER [address] [place], [place] [phone] Social History Tobacco Use Types Packs/Day Years [...] AM CDT Legal Sex Female 4:42 AM ADVERTISING CAMPAIGN MANAGER Gender Identity Female 01/26/2020 10:31 AM CDT Sexual Orientation Straight 01/26/2020 10 :31 AM CDT COVID-19 Exposure Response Date Recorded In the last month, have you been in contact with someone who was confirmed or suspected to have Coronavirus / COVID-19? No / Unsure 01/05/2021 9:10 AM CDT documented as of this encounter Plan of Treatment Not on file documented as of this encounter Visit Diagnoses Not on filedocumented in this encounter Additional Health Concerns Infection Onset Date Last Indicated Resolved Time Rule Out COVID-19 07/10/2021 07/10/2021 07/10/2021 9:43 AM ADVERTISING CAMPAIGN MANAGER Influenza 07/10/2021 07/10/2021 07/17/2021 11:3 9 PM ADVERTISING CAMPAIGN MANAGER Rule Out COVID-19 12/09/2021 12/09/2021 12/09/2021 6:55 PM CDT COVID-19 12/09/2021 12/09/2021 12/30/2021 11:4 1 PM CDT Rule Out COVID-19 07/30/2022 07/30/2022 07/31/2022 5:53 PM ADVERTISING CAMPAIGN MANAGER ESBL 07/30/2022 07/30/2022 Rule Out COVID-19 12/31/2022 12/31/2022 12/31/2022 7:30 AM CDT Rule Out C-difficile 02/28/2024 03/04/2024 024 11:39 PM CDT Assessment Noted Time PHQ-9 Depression Total Score: 10 021 10:57 AM CDT documented as of this encounter Care Teams Poultry Pinner Relationship Specialty Start Date End Date Uli Lee MD [address] [place] [address] PCP - General 11/19/05 Uli Lee MD [address] [place] [address] Assigned PCP 03/13/20 01/28/21 Imani Holman, STEEL GRINDER [address] [place] [address] Assigned PCP 01/29/21 06/10/21 Mercedez Hodge MD [address] [place] [address] [address] Assigned Neuroscience Provider 05/14/21 11/02/22 Uli Lee MD [address] [place] [address] Assigned PCP 06/11/21 10/14/21 Imani Holman, STEEL GRINDER [address] [place] [address] Assigned PCP 10/15/21 04/20/22 Uli Lee MD [address] [place] [address] Assigned PCP 04/21/22 08/24/22 Imani Bennett APRN STEEL GRINDER [address] [place] [address] Assigned PCP 08/25/22 09/14/22 Uli Lee MD [address] [place] [address]951 Assigned PCP 09/15/22 10/05/22 Imani Bennett APRN STEEL GRINDER [address] [place] [address] Assigned PCP 10/06/22 01/18/23 Uli Lee MD [address] [place] [address] Assigned PCP 01/19/23 05/24/23 Uli Lee MD [address] [place] [address] Assigned Pain Medication Provider 02/02/23 02/22/23 Uli Lee MD [address] [place] [address]109 Assigned Pain Medication Provider 03/16/23 05/31/23 Imani Bennett APRN STEEL GRINDER [address] [place] [address] 6[address] Assigned Pain Medication Provider 06/01/23 06/26/23 Imani Bennett APRN STEEL GRINDER [facility] [place] [address] Assigned PCP 05/25/23 documented as of this encounter
--- OUTSIDE RECORDS SUMMARY | 2024-04-12 07:09 | XMS_ITS | Encounter Summary ---
Author Organization [facility] Address [address] [place] [address]. [place] [address] Care Team Providers Care Hvac Mechanical Engineer Name Role Phone Uli Lee MD Primary Care Provider [phone] Imani Bennett APRN STREETS AND BUILDINGS DECORATOR Unavailable + Reason for Visit * Reason Onset Date Comments Call To Schedule Appointment 08/12/2023 Encounter Details Date Type Department Care Team (Late st Contact Info) Description 08/12/[address] [phone] Uli Lee MD [address] [place] [address] Call To Schedule Appointment Social History Tobacco Use Types Packs/Day Years Used Date Smoking Tobacco: Former Cigarettes Q uit: 2020 Smokeless Tobacco: Former Comments:dad smokes outside of house Alcohol Use Standard Drinks/Week Comments Not Currently 0 (1 standard drink = 0.6 oz pur e alcohol) PHQ-2 Answer Date Recorded PHQ-2 Score 2 07/16/2023 [place] Depression Scale Answer Date Recorded Last EPDS Total Score Not on file 07/08/2022 The thought of harming myself has occurred to me . Never 07/08/2022 Adolescent Education Answer Date Record ed Getting School Help Needed Not on file 02/22 Interpersonal Safety Answer Date Record ed Do you feel physically and e motionally safe where you currently live? Yes 07/16/2023 Within the past 12 months, h ave you been hit, slapped, kicked or otherwise physically hurt by someone? No 07/16/2023 Within the past 12 months, h ave you been humiliated or emotionally abused in other ways by your partner or ex-partner? No 07/16/2023 Comments No Sex and Gender Information Value Date Recorded Sex Assigned at Female 01/26/2020 10:31 AM CDT Legal Sex Female 4:42 AM ISOTOPE HYDROLOGIST Gender Identity Female 01/26/2020 10:31 AM CDT Sexual Orientation Straight 01/26/2020 10 :31 AM CDT documented as of this encounter Miscellaneous Notes * Telephone Encounter - Janeen Reynolds - 08/12/2023 8:25 AM CDT Reason for Call: Appointment Request Patient requesting this type of appt: Hospital/ED Follow-Up Requested provider: Uli Lee Reason patient unable to be scheduled: Not within requested timeframe When does patient want to be seen/preferred time: 1-2 days Comments: Getting worse Could we send this information to [facility] or would you prefer to receive a phone call?: Patient would prefer a phone call Okay to leave a detailed message?: Yes at Home number on file [phone] (home) Call taken on 08/12/2023 at 8:25 AM by Janeen Reynolds documented in this encounter Plan of Treatment Not on file documented as of this encounter Visit Diagnoses Not on filedocumented in this encounter Additional Health Concerns Infection Onset Date Last Indicated Resolved Time ESBL 07/30/2022 07/30/2022 Rule Out C-difficile 02/28/2024 03/04/2024 024 11:39 PM CDT Assessment Noted Time PHQ-9 Depression Total Score: 10 024 4:18 PM ISOTOPE HYDROLOGIST documented as of this encounter Care Teams Hvac Mechanical Engineer Relationship Specialty Start Date End Date Uli Lee MD [address] [place] [address] PCP - General 11/19/05 Imani Bennett APRN STREETS AND BUILDINGS DECORATOR [address] [place] [address] Assigned PCP 05/25/23 documented as of this encounter
--- OUTSIDE RECORDS SUMMARY | 2024-04-12 07:09 | XMS_ITS | Encounter Summary ---
Author Organization [facility] Address [address] [place] [address] Care Team Providers Care Spin Table Operator Name Role Phone Uli Lee MD Primary Care Provider [phone] sSherrie RN Unavailable [phone] Uli Lee MD Unavailable [phone] Uli Lee MD Unavailable [phone] Keisha Mtz MD Unavailable Unavaila ble Uli Lee MD Unavailable [phone] Imani Holman ENTERTAINMENT DIRECTOR Unavailable [phone] Mercedez Hodge MD Unavailable Uli Lee MD Unavailable [phone] Imani Holman ENTERTAINMENT DIRECTOR Unavailable [phone] Uli Lee MD Unavailable [phone] Imani Bennett APRN ENTERTAINMENT DIRECTOR Unavailable + Uli Lee MD Unavailable [phone] Imani Bennett APRN ENTERTAINMENT DIRECTOR Unavailable + Uli Lee MD Unavailable [phone] Uli Lee MD Unavailable Uli Lee MD Unavailable Imani Bennett APRN ENTERTAINMENT DIRECTOR Unavailable + Imani Bennett APRN ENTERTAINMENT DIRECTOR Unavailable + Reason for Visit * Reason Onset Date Comments Panel Management 11/20/2017 ACT Encounter Details Date Type Department Care Team (Late st Contact Info) Description 11/20/[address] [phone] [place] [address] [place] [address] Panel Management (ACT) Social History Tobacco Use Types Packs/Day Years Used Date Smoking Tobacco: Former Smokeless Tobacco: Never Comments:dad smokes outside of house Alcohol Use Standard Drinks/Week Comments Yes 0 (1 standard drink = 0.6 oz pur e alcohol) 0-2 drinks Q3M Comments Yes Sex and Gender Information Value Date Recorded Sex Assigned at Female 01/26/2020 10:31 AM CDT Legal Sex Female 4:42 AM GENERAL TELLER Gender Identity Female 01/26/2020 10:31 AM CDT Sexual Orientation Straight 01/26/2020 10 :31 AM CDT documented as of this encounter Miscellaneous Notes * Telephone Encounter - Lacey Schulte MA - 11/20/2017 12:25 PM CDT Due to being on the Asthma fail list - sent patient ACT form, letter and pre- stamped envelope to send back to us. Please update when we receive. documented in this encounter Plan of Treatment Not on file documented as of this encounter Visit Diagnoses Not on filedocumented in this encounter Additional Health Concerns Infection Onset Date Last Indicated Resolved Time Rule Out COVID-19 04/10/2020 04/10/2020 05/01/2020 11:40 PM GENERAL TELLER Rule Out COVID-19 07/10/2021 07/10/2021 07/10/2021 9:43 AM GENERAL TELLER Influenza 07/10/2021 07/10/2021 07/17/2021 11:3 9 PM GENERAL TELLER Rule Out COVID-19 12/09/2021 12/09/2021 12/09/2021 6:55 PM CDT COVID-19 12/09/2021 12/09/2021 12/30/2021 11:4 1 PM CDT Rule Out COVID-19 07/30/2022 07/30/2022 07/31/2022 5:53 PM GENERAL TELLER ESBL 07/30/2022 07/30/2022 Rule Out COVID-19 12/31/2022 12/31/2022 12/31/2022 7:30 AM CDT Rule Out C-difficile 02/28/2024 03/04/2024 024 11:39 PM CDT Assessment Noted Time PHQ-9 Depression Total Score: 18 018 7:11 AM CDT documented as of this encounter Care Teams Spin Table Operator Relationship Specialty Start Date End Date Uli Lee MD [address] [place] [address] [phone] PCP - General 11/19/05 Uli Lee MD [address] [place] [address] [phone] PCP - Assigned PCP 08/18/17 08/05/18 sSherrie RN [facility] Primary [facility] - CC 05/05/1805/06/18 Uli Lee MD [address] [place] [address] [phone] Assigned PCP 08/18/17 07/04/19 Keisha Mtz MD Assigned PCP 07/05/19 03/12/20 Uli Lee MD [address] [place] [address], [place] [address] Assigned PCP 03/13/20 01/28/21 Imani Holman, ENTERTAINMENT DIRECTOR [address] [place] [address], [place] [address] Assigned PCP 01/29/21 06/10/21 Mercedez Hodge MD [address] [place], [place] [id number] [address] Assigned Neuroscience Provider 05/14/21 11/02/22 Uli Lee MD [address] [place] [address], [place] [address] Assigned PCP 06/11/21 10/14/21 Imani Holman, ENTERTAINMENT DIRECTOR [address] [place] [address], [place] [address] Assigned PCP 10/15/21 04/20/22 Uli Lee MD [address] [place] [address], [place] [address] Assigned PCP 04/21/22 08/24/22 Imani Bennett APRN ENTERTAINMENT DIRECTOR [address] [place] [address], [place] [address] Assigned PCP 08/25/22 09/14/22 Uli Lee MD [address] [place] [address], [place] [address] Assigned PCP 09/15/22 10/05/22 Imani Bennett APRN ENTERTAINMENT DIRECTOR [address] [place] [address], [place] [address] Assigned PCP 10/06/22 01/18/23 Uli Lee MD [address] [place] [address], [place] [address] Assigned PCP 01/19/23 05/24/23 Uli Lee MD [address] [place] [address], [place] [address] Assigned Pain Medication Provider 02/02/23 02/22/23 Uli Lee MD [address] [place] [address] Assigned Pain Medication Provider 03/16/23 05/31/23 Imani Bennett APRN ENTERTAINMENT DIRECTOR [address] [place] [address], [place] [address] Assigned Pain Medication Provider 06/01/23 06/26/23 Imani Bennett APRN ENTERTAINMENT DIRECTOR [address] [place] [address] Assigned PCP 05/25/23 documented as of this encounter
[2024-04-12 07:23] LABS: Basophils Percent Auto 0.2 % (0.0-3.0); Eosinophils Percent Auto 0.2 % (0.0-7.0); Hematocrit 38.4 % (33.0-51.0); Hemoglobin* 12.9 gm/dL (12.0-16.0); Immature Granulocytes Pct Auto 0.2 %; Lymphocytes Percent Auto 21.8 % (20-44); Mean Corpuscular HGB Conc 34 gm/dL (32-36); Mean Corpuscular Hemoglobin 30 pg (26-34); Mean Corpuscular Volume 88 fL (80-100); Monocytes Percent Auto 5.1 % (0.0-11.0); Neutrophils Percent Auto 72.5 % (42.0-72.0); Platelet Count* 283 K/uL (140-440); RDW Coefficient of Variation % 12.5 % (11.5-15.5); Red Blood Count 4.36 m/uL (4.00-5.20); White Blood Count* 11.75 K/uL (4.50-11.00)
[2024-04-12] MEDS: KETOROLAC 15 MG/ML inj IVP (07:28)
[2024-04-12 07:31] LABS: Slide Review Reflex No
[2024-04-12 07:37] LABS: Chloride* 105 mmol/L (96-114); Potassium* 3.6 mmol/L (3.6-5.1); Sodium* 137 mmol/L (135-149)
[2024-04-12 07:39] LABS: Creatinine* 0.5 mg/dL (0.5-1.5); Est. Creatinine Clearance* 161.44; Estimated Glomerular Filt Rate 130 ml/min
[2024-04-12 07:40] LABS: Anion Gap 11 mEq/L (7-15); Blood Urea Nitrogen* 10 mg/dL (5-24); Carbon Dioxide* 21 mmol/L (20-32); Glucose* 98 mg/dL (60-115)
[2024-04-12 07:41] LABS: Calcium* 9.4 mg/dL (8.4-10.6)
[2024-04-12 07:44] LABS: C Reactive Protein* < 0.5 mg/dL (0.5-1.0)
== END 2024-04-12 08:36 | disposition home or self-care (01) ==
PROVIDERS: Emergency Provider Family Medicine
DX: R10.2 Pelvic and perineal pain (principal); G89.29 Other chronic pain; N83.201 Unspecified ovarian cyst, right side; K59.00 Constipation, unspecified
CPT/HCPCS: 36415; 74177; 80048; 81003; 85025; 86140; 96374; 99284; 99285; J1885; Q9967

== ENCOUNTER 2024-08-15 13:48 | Emergency (ER) | payer MEDICAID, SELFPAY ==
--- OUTSIDE RECORDS SUMMARY | 2024-08-15 13:50 | XMS_ITS | Clinical Summary ---
Author Organization [facility] Address [address] [place] [address] Care Team Providers Care Floor Framer Name Role Phone Unavailable Primary Care Provider Unavailabl e Allergies Active Allergy Reactions Criticality Noted Date Comments Avocado Itching 04/05/2023 Doxycycline Nausea 04/18/2020 Hydrocodone Nausea,Dizziness,Rash Low 12/09/2018 Tolerates morphine, fentanyl, dilaudid, and oxycodone Nut - Unspecified Itching 04/05/2023 Medications albuterol HFA (VENTOLIN HFA) 90 mcg/actuation Inhl inhaler SHAKE WELL AND INHALE 2 PUFFS BY MOUTH EVERY 4 HOURS NEEDED FOR SHORTNESS OF BREATH 4 Active ipratropium-alb uteroL (COMBIVENT RESPIMAT) 20-100 mcg/actuation Inhl Mist inhaler Inhale 1 puff. Activ e ondansetron (ZOFRAN) 4 mg oral ODT Dissolve 8 mg in mouth every 12 (twelve) hours as needed for nausea. Active oxyCODONE-aceta minophen (PERCOCET) 5-325 mg oral tablet Take 1-2 tablets by mouth every 4 (four) hours as needed for pain. 15 tablet 09/02/2023 12:22 PM CDT 4 Active ondansetron (ZOFRAN) 4 mg oral ODT Dissolve 2 tablets (8 mg) in mouth every 12 (twelve) hours as needed for nausea. 20 tablet 09/02/2023 12:22 PM CDT 4 Active Magic Mouthwash - nystatin oral suspension 5 mL by Swish & Spit route every four (4) to six (6) hours as needed for mouth pain. Contains equal amounts of: Maalox/nystati n/lidocaine 2% 450 mL 4 Active Active Problems Problem Noted Date Diagnosed Date Endometriosis 09/02/2023 Family History Medical History Relation Comments Depression Brother Depression Father High Cholesterol Father High Cholesterol Maternal Grandmother High Cholesterol Mother High Cholesterol Paternal Grandmother Relation Status Comments Brother Father Maternal Grandmother Mother Paternal Grandmother Social History Tobacco Use Types Packs/Day Years Used Date Smoking Tobacco: Former Cigarettes Tobacco Cessation:Counseling Given: Not Answered Alcohol Use Standard Drinks/Week Comments Yes 0 (1 standard drink = 0.6 oz pur e alcohol) occ Comments No Sex and Gender Information Value Date Recorded Sex Assigned at Not on file Legal Sex Female 10:02 AM FLOOR MOLDER Gender Identity Not on file Sexual Orientation Not on file Last Filed Vital Signs Vital Sign Reading Time Taken Comments Blood Pressure 133/89 09/02/2023 12:45 PM CDT Pulse 87 09/02/2023 12:45 PM CDT Temperature 36.6 C (97.8 F) 09/02/2023 12:45 PM CDT Respiratory Rate 18 09/02/2023 12:45 PM CDT Oxygen Saturation 95% 09/02/2023 12:45 PM CDT Inhaled Oxygen Concentration - - Weight 86.2 kg (190 lb) 08/29/2023 9:49 AM CDT Height 170.2 cm (5' 7) 08/29/2023 9:49 AM CDT Body Mass Index 29.76 08/29/2023 9:49 AM CDT Plan of Treatment Health Maintenance Due Date Last Done Comments Hepatitis C Screening 1995 Pap Smear 1995 Anxiety Screening (VÍCTOR-2) 1996 Depression Assessment (PHQ-2) 1996 Pneumococcal Vaccine (2 of 2 - PCV) 04/11/2021 04/11/2020 COVID-19 Vaccine ( - 2023-2 5 season) 2024 Influenza Vaccine (#1) 2024 , 04/22/2019, 03/11/2018 Adult Tetanus Booster 05/18/2032 05/18/2022 , 03/11/2018, 08/09/2014, Additional history exists RSV Vaccines (1 - 1-dose 75+ series) 2070 Insurance [facility]
--- OUTSIDE RECORDS SUMMARY | 2024-08-15 13:50 | XMS_ITS | Encounter Summary ---
Author Organization [facility] Address [address] [place] [address] Care Team Providers Care Machine Buffer Name Role Phone Uli [facility] MD Primary Care Provider [phone] Cherie Tabor RN Unavailable sSherrie RN Unavailable [phone] Uli Lee MD Unavailable [phone] Uli Lee MD Unavailable [phone] Keisha Mtz MD Unavailable Uli Lee MD Unavailable [phone] Imani Holman DRAFTER ASSISTANT Unavailable Mercedez Hodge MD Unavailable Uli Lee MD Unavailable [phone] Imani Holman DRAFTER ASSISTANT Unavailable Uli Lee MD Unavailable [phone] Imani Bennett APRN DRAFTER ASSISTANT Unavailable + Uli Lee MD Unavailable [phone] Imani Bennett APRN DRAFTER ASSISTANT Unavailable + Uli Lee MD Unavailable Uli Lee MD Unavailable Uli Lee MD Unavailable Imani Bennett EXEC. CREATIVE DIRECTOR DRAFTER ASSISTANT Unavailable + Imani Bennett EXEC. CREATIVE DIRECTOR DRAFTER ASSISTANT Unavailable + Encounter Details Date Type Department Care Team (Late st Contact Info) Description 09/19/[address] [phone] Uli Lee MD [address] [place] [address] [phone] ER REPORT (Primary Dx) Social History Tobacco [...] AM CDT Legal Sex Female 4:42 AM DAY CARE CENTER DIRECTOR Gender Identity Female 01/26/2020 10:31 AM CDT Sexual Orientation Straight 01/26/2020 10 :31 AM CDT documented as of this encounter Plan of Treatment Upcoming Encounters Date Type Department Care Team (Late st Contact Info) Description 08/19/2024 9:00 AM CDT Office Visit [address] [phone] Imani Bennett APRN DRAFTER ASSISTANT [address] [place] [address] [phone] documented as of this encounter Visit Diagnoses Diagnosis ER REPORT- Primary documented in this encounter Additional Health Concerns Infection Onset Date Last Indicated Resolved Time Rule Out COVID-19 04/10/2020 04/10/2020 05/01/2020 11:40 PM DAY CARE CENTER DIRECTOR Rule Out COVID-19 07/10/2021 07/10/2021 07/10/2021 9:43 AM DAY CARE CENTER DIRECTOR Influenza 07/10/2021 07/10/2021 07/17/2021 11:3 9 PM DAY CARE CENTER DIRECTOR Rule Out COVID-19 12/09/2021 12/09/2021 12/09/2021 6:55 PM CDT COVID-19 12/09/2021 12/09/2021 12/30/2021 11:4 1 PM CDT Rule Out COVID-19 07/30/2022 07/30/2022 07/31/2022 5:53 PM DAY CARE CENTER DIRECTOR ESBL 07/30/2022 07/30/2022 Rule Out COVID-19 12/31/2022 12/31/2022 12/31/2022 7:30 AM CDT Rule Out C-difficile 02/28/2024 03/04/2024 024 11:39 PM CDT documented as of this encounter Care Teams Machine Buffer Relationship Specialty Start Date End Date Uli Lee MD [address] [place] [address] PCP - General 11/19/05 Uli Lee MD [address] [place] [address] 22551 PCP - Assigned PCP 08/18/17 08/05/18 Cherie Tabor RN Lead Advertising Inserter Primary Care - CC 08/22/17 Sherrie Chou RN Clinic Advertising Inserter Primary Care - CC 05/05/1805/06/18 Uli Lee MD [address] [place] [address] [phone] Assigned PCP 08/18/17 07/04/19 Keisha Mtz MD [address] [phone] Assigned PCP 07/05/19 03/12/20 Uil Lee MD [address] [place] [address] 43501 Assigned PCP 03/13/20 01/28/21 Imani Holman, DRAFTER ASSISTANT [address] [place] [address] 41860 Assigned PCP 01/29/21 06/10/21 Mercedez Hodge MD [address] [place], [place] [id number], [place] [address] Assigned Neuroscience Provider 05/14/21 11/02/22 Uli Lee MD [address] [place] [address] 34650 Assigned PCP 06/11/21 10/14/21 Imani Holman, DRAFTER ASSISTANT [address] [place] [address] 96340 Assigned PCP 10/15/21 04/20/22 Uli Lee MD [address] [place] [address] 15709 Assigned PCP 04/21/22 08/24/22 Imani Bennett APRN DRAFTER ASSISTANT [address] [place] [address] 71768 Assigned PCP 08/25/22 09/14/22 Uli Lee MD [address] [place] [address] 58490 Assigned PCP 09/15/22 10/05/22 Imani Bennett APRN DRAFTER ASSISTANT [address] [place] [address] 61662 Assigned PCP 10/06/22 01/18/23 Uli Lee MD [address] [place] [address] 21285 Assigned PCP 01/19/23 05/24/23 Uli Lee MD [address] [place] [address] 42137 Assigned Pain Medication Provider 02/02/23 02/22/23 Uli Lee MD [address] [place] [address] 48779 Assigned Pain Medication Provider 03/16/23 05/31/23 Imani Bennett APRN DRAFTER ASSISTANT [address] [place] [address] 88106 Assigned Pain Medication Provider 06/01/23 06/26/23 Imani Bennett APRN DRAFTER ASSISTANT [address] [place] [address] 35590 Assigned PCP 05/25/23 documented as of this encounter
--- OUTSIDE RECORDS SUMMARY | 2024-08-15 13:50 | XMS_ITS | Encounter Summary ---
Author Organization [facility] Address [address] [place] [address] Care Team Providers Care Carbonating Stone Cleaner Name Role Phone Robbie [facility] MD Primary Care Provider [phone] sSherrie RN Unavailable [phone] Robbie Lee MD Unavailable [phone] Robbie Lee MD Unavailable [phone] Keisha Mtz MD Unavailable [phone] Robbie Lee MD Unavailable [phone] Imani Holman DEPUTY MANAGER Unavailable Mercedez Hodge MD Unavailable [phone] Robbie Lee MD Unavailable [phone] Imani Holman DEPUTY MANAGER Unavailable Robbie Lee MD Unavailable [phone] Imani Bennett APRN DEPUTY MANAGER Unavailable + Robbie Lee MD Unavailable [phone] Imani Bennett APRN DEPUTY MANAGER Unavailable + Robbie Lee MD Unavailable Robbie Lee MD Unavailable Robbie Lee MD Unavailable [phone] Imani Bennett APRN DEPUTY MANAGER Unavailable + Imani Bennett APRN DEPUTY MANAGER Unavailable + Reason for Referral * Diagnostic Imaging Ultrasound - Closed Specialty Diagnoses / Procedures Referred By Contac t Referred To Contact Diagnoses related condition, antepartum Procedures [facility] Single Robbie Lee MD Phone: tel: fax: Referral ID Status Reason Start Date Expiration Date Visits Re quested Visits Authorized [id number] Closed 04/18/2018 04/18/2019 1 1 Y LEVEL PROJECT COORDINATOR Encounter Details Date Type Department Care Team (Late Contact Info) Description 04/18/2018 Orders Only [facility] [place] [address] [facility] [address] [place] [phone] [place] [address] [place] [address] [phone] related condition, antepartum (Primary Dx) Social History Tobacco Use Types Packs/Day Years Used Date Smoking Tobacco: Former Smokeless Tobacco: Never Comments:dad smokes outside of house Alcohol Use Standard Drinks/Week Comments No 0 (1 standard drink = 0.6 oz pur e alcohol) Comments Yes Sex and Gender Information Value Date Recorded Sex Assigned at Female 01/26/2020 10:31 AM CDT Legal Sex Female 4:42 AM ENTRY LEVEL PROJECT COORDINATOR Gender Identity Female 01/26/2020 10:31 AM CDT Sexual Orientation Straight 01/26/2020 10 :31 AM CDT documented as of this encounter Plan of Treatment Upcoming Encounters Date Type Department Care Team (Late st Contact Info) Description 08/19/2024 9:00 AM CDT Office Visit [address] [phone] Imani Bennett, BIODIESEL TECHNOLOGY MANAGER DEPUTY MANAGER [address] [place], [place] [phone] documented as of this encounter Results * MFM BPP Single (04/18/2018 1:14 PM ENTRY LEVEL PROJECT COORDINATOR) Anatomical Region Laterality Modality Ultrasound 04/18/2018 12:5 2 PM ENTRY LEVEL PROJECT COORDINATOR Impressions 04/18/2018 1:16 PM ENTRY LEVEL PROJECT COORDINATOR IMPRESSION ----- Normal NICOL. BPP is reassuring. Narrative 04/18/2018 1:16 PM ENTRY LEVEL PROJECT COORDINATOR BPP ----- Pat. Name: ANGIE HALE Study Date: 04/18/2018 12:52pm Pat. NO: [id number] Referring MD: ROBBIE LEE Site: [facility] Rolling Room: Janeen Negro RDMS : 1995 Age: 23 ----- INDICATION ----- Decreased Movement METHOD ----- Transabdominal ultrasound examination. View: Sufficient ----- Goodman . Number of fetuses: 1 DATING ----- Date Details Gest. age ZULMA Prior assessment 09/13/2017 GA: 7 w + 0 d 38 w + 0 d 05/02/2018 Assigned dating Dating performed on 04/18/2018, based on the prior assessment (on 09/13/2017) 38 w + 0 d 05/02/2018 GENERAL EVALUATION ----- Cardiac activity present. FHR 135 bpm. movements visualized. Presentation cephalic. Placenta posterior. Umbilical cord 3 vessel cord. AMNIOTIC FLUID ASSESSMENT ----- Amount of AF: normal MVP 5.8 cm. NICOL 15.6 cm. Q1 5.8 cm, Q2 4.3 cm, Q3 2.8 cm, Q4 2.8 cm BIOPHYSICAL PROFILE ----- 2: breathing movements 2: Gross body movements 2: tone 2: Amniotic fluid volume 01/08 Biophysical profile score Interpretation: normal RECOMMENDATION ----- [...] Pat. Name:Mo HALE Date:04/18/2018 12:52pm Pat. NO: [id number] MD:ROBBIE LEE [facility]Janeen Negro RDMS :1995Age:23 ----- INDICATION ----- Decreased [...] ultrasound studies as clinically indicated. Return to [facility] for continued care. Thank-you for the opportunity to participate in the care of this patient.If you have questions regarding today's evaluation or if we can be offurther service, please contact the [facility]. anomalies may be present but not detected IMPRESSION ----- Normal NICOL. BPP is reassuring. us Robbie Lee MD [facility] US ORDERABLES Edited Result - Final documented in this encounter Visit Diagnoses Diagnosis related condition, antepartum- Primary related condition, antepartum documented in this encounter Additional Health Concerns Infection Onset Date Last Indicated Resolved Time Rule Out COVID-19 04/10/2020 04/10/2020 05/01/2020 11:40 PM ENTRY LEVEL PROJECT COORDINATOR Rule Out COVID-19 07/10/2021 07/10/2021 07/10/2021 9:43 AM ENTRY LEVEL PROJECT COORDINATOR Influenza 07/10/2021 07/10/2021 07/17/2021 11:3 9 PM ENTRY LEVEL PROJECT COORDINATOR Rule Out COVID-19 12/09/2021 12/09/2021 12/09/2021 6:55 PM CDT COVID-19 12/09/2021 12/09/2021 12/30/2021 11:4 1 PM CDT Rule Out COVID-19 07/30/2022 07/30/2022 07/31/2022 5:53 PM ENTRY LEVEL PROJECT COORDINATOR ESBL 07/30/2022 07/30/2022 Rule Out COVID-19 12/31/2022 12/31/2022 12/31/2022 7:30 AM CDT Rule Out C-difficile 02/28/2024 03/04/2024 024 11:39 PM CDT Assessment Noted Time PHQ-9 Depression Total Score: 14 018 7:16 AM CDT documented as of this encounter Care Teams Carbonating Stone Cleaner Relationship Specialty Start Date End Date Robbie Lee MD [address] [place] [address] PCP - General 11/19/05 Robbie Lee MD [address] [place] [address] 22091 PCP - Assigned PCP 08/18/17 08/05/18 sSherrie RN Clinic Fbi Profiler Primary Care - CC 05/05/1805/06/18 Robbie Lee MD [address] [place] [address] 44315 Assigned PCP 08/18/17 07/04/19 Keisha Mtz MD [address] [phone] Assigned PCP 07/05/19 03/12/20 Robbie Lee MD [address] [place] [address] 58413 Assigned PCP 03/13/20 01/28/21 Imani Holman, DEPUTY MANAGER [address] [place] [address] 20493 Assigned PCP 01/29/21 06/10/21 Mercedez Hodge MD [address] [facility] [place] [id number] [place] [address] Assigned Neuroscience Provider 05/14/21 11/02/22 Robbie Lee MD [address] [place] [address], [place] [phone] Assigned PCP 06/11/21 10/14/21 Imani Holman, DEPUTY MANAGER [address] [place] [address], [place] [phone] Assigned PCP 10/15/21 04/20/22 Robbie Lee MD [address] [place] [address], [place] [phone] Assigned PCP 04/21/22 08/24/22 Imani Bennett APRN DEPUTY MANAGER [address] [place] [address], [place] [phone] Assigned PCP 08/25/22 09/14/22 Robbie Lee MD [address] [place] [address], [place] [phone] Assigned PCP 09/15/22 10/05/22 Imani Bennett APRN DEPUTY MANAGER [address] [place] [address], [place] [address] Assigned PCP 10/06/22 01/18/23 Robbie Lee MD [address] [place] [address], [place] [phone] Assigned PCP 01/19/23 05/24/23 Robbie Lee MD [address] [place] [address] [phone] Assigned Pain Medication Provider 02/02/23 02/22/23 Robbie Lee MD [address] [place] [address] [phone] Assigned Pain Medication Provider 03/16/23 05/31/23 Imani Bennett APRN DEPUTY MANAGER [address] [place] [address] 66640 Assigned Pain Medication Provider 06/01/23 06/26/23 Imani Bennett APRN DEPUTY MANAGER [address] [place] [address] 26497 Assigned PCP 05/25/23 documented as of this encounter
--- OUTSIDE RECORDS SUMMARY | 2024-08-15 13:51 | XMS_ITS | Encounter Summary ---
Author Organization [place] Address [facility] [place] [address] Care Team Providers Care Orthodontist Name Role Phone Uli Lee MD Primary Care Provider [phone] Uli Lee MD Unavailable [phone] Imani Holman DISPATCHER MAINTENANCE SERVICE Unavailable Mercedez Hodge MD Unavailable Uli Lee MD Unavailable [phone] Imani Holman DISPATCHER MAINTENANCE SERVICE Unavailable [phone] Uli Lee MD Unavailable [phone] Imani Bennett APRN DISPATCHER MAINTENANCE SERVICE Unavailable + Uli Lee MD Unavailable [phone] Imani Bennett APRN DISPATCHER MAINTENANCE SERVICE Unavailable + Uli Lee MD Unavailable [phone] Uli Lee MD Unavailable [phone] Uli Lee MD Unavailable [phone] Imani Bennett APRN DISPATCHER MAINTENANCE SERVICE Unavailable + Imani Bennett APRN DISPATCHER MAINTENANCE SERVICE Unavailable + Encounter Details Date Type Department Care Team (Late st Contact Info) Description 01/20/2021 MyC Medical Advice [place] [address] [place] [phone] Katia Dale RN Social History Tobacco Use [...] AM CDT Legal Sex Female 4:42 AM DEVELOPMENT TECHNICAL LEAD Gender Identity Female 01/26/2020 10:31 AM CDT [...] Encounters Date Type Department Care Team (Late Contact Info) Description 08/19/2024 9:00 AM CDT Office Visit [address] [phone] Imani Bennett, RENTAL SALES REPRESENTATIVE [address] [address] documented as of this encounter Visit Diagnoses Not on filedocumented in this encounter Additional Health Concerns Infection Onset Date Last Indicated Resolved Time Rule Out COVID-19 07/10/2021 07/10/2021 07/10/2021 9:43 AM DEVELOPMENT TECHNICAL LEAD Influenza 07/10/2021 07/10/2021 07/17/2021 11:3 9 PM DEVELOPMENT TECHNICAL LEAD Rule Out COVID-19 12/09/2021 12/09/2021 12/09/2021 6:55 PM CDT COVID-19 12/09/2021 12/09/2021 12/30/2021 11:4 1 PM CDT Rule Out COVID-19 07/30/2022 07/30/2022 07/31/2022 5:53 PM DEVELOPMENT TECHNICAL LEAD ESBL 07/30/2022 07/30/2022 Rule Out COVID-19 12/31/2022 12/31/2022 12/31/2022 7:30 AM CDT Rule Out C-difficile 02/28/2024 03/04/2024 024 11:39 PM CDT Assessment Noted Time PHQ-9 Depression Total Score: 10 021 10:57 AM CDT documented as of this encounter Care Teams Orthodontist Relationship Specialty Start Date End Date Uli Lee MD [address] [place] [address] PCP - General 11/19/05 Uli Lee MD [address] [place] [address] Assigned PCP 03/13/20 01/28/21 Imani Holman DISPATCHER MAINTENANCE SERVICE [address] [place] [address] Assigned PCP 01/29/21 06/10/21 Mercedez Hodge MD [address] [place], [place] [id number] [place] [address] Assigned Neuroscience Provider 05/14/21 11/02/22 Uli Lee MD [address] [place] [address] Assigned PCP 06/11/21 10/14/21 Imani Holman CNP [address] [place] [address] Assigned PCP 10/15/21 04/20/22 Uli Lee MD [address] [place] [address] Assigned PCP 04/21/22 08/24/22 Imani Bennett APRN DISPATCHER MAINTENANCE SERVICE [address] [place] [address] Assigned PCP 08/25/22 09/14/22 Uli [place] MD [address] [place] [address]16 Assigned PCP 09/15/22 10/05/22 Imani Bennett APRN DISPATCHER MAINTENANCE SERVICE [address] [place] [address]65 Assigned PCP 10/06/22 01/18/23 Uli Lee MD [address] [place] [address] Assigned PCP 01/19/23 05/24/23 Uli Lee MD [address] [place] [address] Assigned Pain Medication Provider 02/02/23 02/22/23 Uli Lee MD [address] [place] [address] Assigned Pain Medication Provider 03/16/23 05/31/23 Imani Bennett APRN DISPATCHER MAINTENANCE SERVICE [facility] [place] [address] Assigned Pain Medication Provider 06/01/23 06/26/23 Imani Bennett APRN DISPATCHER MAINTENANCE SERVICE [address] [place] [address] Assigned PCP 05/25/23 documented as of this encounter
--- OUTSIDE RECORDS SUMMARY | 2024-08-15 13:51 | XMS_ITS | Encounter Summary ---
Author Organization [place] Address [address] [place] [address] Care Team Providers Care Flowers Salesperson Name Role Phone Uli Lee MD Primary Care Provider [phone] Cherie Tabor RN Unavailable sSherrie RN Unavailable [phone] Uli Lee MD Unavailable [phone] Uli Lee MD Unavailable [phone] Keisha Mtz MD Unavailable Uli Lee MD Unavailable [phone] Imani Holman DAMASCENER Unavailable Mercedez Hodge MD Unavailable Uli Lee MD Unavailable [phone] Imani Holman DAMASCENER Unavailable Uli Lee MD Unavailable [phone] Imani Bennett APRN DAMASCENER Unavailable + Uli Lee MD Unavailable [phone] Imani Bennett APRN DAMASCENER Unavailable + Uli Lee MD Unavailable Uli Lee MD Unavailable Uli Lee MD Unavailable [phone] Imani Bennett COVERED BUTTON MAKER DAMASCENER Unavailable + Imani Bennett COVERED BUTTON MAKER DAMASCENER Unavailable + Encounter Details Date Type Department [...] AM CDT Legal Sex Female 4:42 AM INVESTMENT FUND MANAGER Gender Identity Female 01/26/2020 10:31 AM CDT Sexual Orientation Straight 01/26/2020 10 :31 AM CDT documented as of this encounter Plan of Treatment Upcoming Encounters Date Type Department Care Team (Late st Contact Info) Description 08/19/2024 9:00 AM CDT Office Visit [address] [phone] Imani Bennett, OSWALDO DAMASCENER [address] [place], [place] [phone] documented as of this encounter Visit Diagnoses Not on filedocumented in this encounter Additional Health Concerns Infection Onset Date Last Indicated Resolved Time Rule Out COVID-19 04/10/2020 04/10/2020 05/01/2020 11:40 PM INVESTMENT FUND MANAGER Rule Out COVID-19 07/10/2021 07/10/2021 07/10/2021 9:43 AM INVESTMENT FUND MANAGER Influenza 07/10/2021 07/10/2021 07/17/2021 11:3 9 PM INVESTMENT FUND MANAGER Rule Out COVID-19 12/09/2021 12/09/2021 12/09/2021 6:55 PM CDT COVID-19 12/09/2021 12/09/2021 12/30/2021 11:4 1 PM CDT Rule Out COVID-19 07/30/2022 07/30/2022 07/31/2022 5:53 PM INVESTMENT FUND MANAGER ESBL 07/30/2022 07/30/2022 Rule Out COVID-19 12/31/2022 12/31/2022 12/31/2022 7:30 AM CDT Rule Out C-difficile 02/28/2024 03/04/2024 024 11:39 PM CDT Assessment Noted Time PHQ-9 Depression Total Score: 10 017 7:13 AM INVESTMENT FUND MANAGER documented as of this encounter Care Teams Flowers Salesperson Relationship Specialty Start Date End Date Uli [place] MD [address] [place] [address] PCP - General 11/19/05 Uli [place] MD [address] [place] [address] PCP - Assigned PCP 08/18/17 08/05/18 Cherie Tabor RN Lead Clerical Secretary Primary Care - CC 08/22/17 Sherrie Chou RN Clinic Clerical Secretary Primary Care - CC 05/05/1805/06/18 Uli [place] MD [address] [place] [address] Assigned PCP 08/18/17 07/04/19 Keisha Mtz MD [address] [phone] Assigned PCP 07/05/19 03/12/20 Uli [place] MD [address] [place] [address], [place] [address] Assigned PCP 03/13/20 01/28/21 Imani Holman, DAMASCENER [address] [place] [address], [place] [address] Assigned PCP 01/29/21 06/10/21 Mercedez Hodge MD [address] [id number] [place] [address] Assigned Neuroscience Provider 05/14/21 11/02/22 Uli [place] MD [address] [place] [address] Assigned PCP 06/11/21 10/14/21 Imani Holman, DAMASCENER [address] [place] [address], [place] [address] Assigned PCP 10/15/21 04/20/22 Uli [place] MD [address] [place] [address] Assigned PCP 04/21/22 08/24/22 Imani Bennett APRN DAMASCENER [address] [place] [address] Assigned PCP 08/25/22 09/14/22 Uli [place] MD [address] [place] [address] Assigned PCP 09/15/22 10/05/22 Imani Bennett APRN DAMASCENER [address] [place] [address] Assigned PCP 10/06/22 01/18/23 Uli [place] MD [address] [place] [address] Assigned PCP 01/19/23 05/24/23 Uli [place] MD [address] [place] [address] Assigned Pain Medication Provider 02/02/23 02/22/23 Uli [place] MD [address] [place] [address] Assigned Pain Medication Provider 03/16/23 05/31/23 Imani Bennett APRN DAMASCENER [address] [place] [address] Assigned Pain Medication Provider 06/01/23 06/26/23 Imani Bennett APRN DAMASCENER [address] [place] [address] Assigned PCP 05/25/23 documented as of this encounter
--- OUTSIDE RECORDS SUMMARY | 2024-08-15 13:51 | XMS_ITS | Clinical Summary ---
Author Organization [facility] Address [address] [place] [address] Care Team Providers Care Benefits Technician Name Role Phone Uli [place] MD Primary Care Provider [phone] Allergies Active Allergy Reactions Criticality Noted Date Comments Doxycycline Nausea And Vomiting 04/18/2020 Hydrocodone Nausea Only Low 12/09/2018 And dizziness And dizziness Medications beclomethasone dipropionate (QVAR REDIHALER) 80 mcg/actuation HFAbIndications:Co ugh Inhale 2 Puffs by mouth 2 times daily. 10.6 g 12/21/19 20 Active ibuprofen (ADVIL; MOTRIN) 200 mg tabletIndications: pain Take 200 mg by mouth every 6 hours. Active traMADoL (Ultram) 50 mg tabletIndications: Right arm pain Take 1 Tablet (50 mg) by mouth every 6 hours if needed for Pain. 6 Tablet 09/21/19 21 Active oxyCODONE-acetamin ophen (PERCOCET) 5-325 mg per tabletIndications: Urinary tract infection with hematuria, site unspecified,Left flank pain Take 1 Tablet by mouth every 6 hours if needed for Pain. Max acetaminophen dose: 4000mg in 24 hrs. 15 Tablet 11/21/19 21 Active ondansetron (ZOFRAN ODT) 4 mg disintegrating tabletIndications: Urinary tract infection with hematuria, site unspecified Place 1 Tablet (4 mg) on the tongue every 8 hours if needed for Nausea/Vomiting. 10 Tablet 11/21/19 21 Active ondansetron (ZOFRAN ODT) 4 mg disintegrating tabletIndications: Nausea Place 1 Tablet (4 mg) on the tongue every 6 hours if needed for Nausea/Vomiting. 12 Tablet 05/18/20 21 Active neomycin-polymyxin -hydrocortisone (CORTISPORIN OTIC) otic suspensionIndicati ons:Acute otitis externa of right ear, unspecified type Place 3 Drops into right ear 4 times daily. 10 mL 07/12/19 22 Active naproxen (NAPROSYN) 500 mg tabletIndications: Abdominal pain, unspecified abdominal location Take 1 Tablet (500 mg) by mouth every 12 hours if needed for Pain. 30 Tablet 10/14/19 22 Active Orilissa 150 mg tab Take 1 Tablet by mouth once daily. Active metoclopramide (REGLAN) 5 mg tablet Take 5 mg by mouth. 03/19/20 23 Active ondansetron (ZOFRAN) 4 mg tablet Take 4 mg by mouth every 8 hours if needed. 04/05/20 23 Active albuterol HFA (PRO-AIR; VENTOLIN; PROVENTIL) 90 mcg/actuation inhalerIndications :Asthma, unspecified asthma severity, unspecified whether complicated, unspecified whether persistent Inhale 2 Puffs by mouth every 4 hours if needed for Shortness Of Breath. 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, not intractable 07/09/2016 Enlarged thyroid gland 07/09/2016 Pelvic pain in female 11/30/2014 depression 10/21/2014 Gastroesophageal reflux disease 08/09/2014 Recurrent major depressive disorder, in full rem ission 04/09/2013 Mild intermittent asthma 09/25/2011 Ovarian cyst 04/10/2011 Insomnia 08/16/2009 Obsessive-compulsive disorder 08/12/2008 Migraine headache Immunizations Immunization Administration Dates Next Due Td (Age >=7 Years) 12/29/2006 Family History Medical History Relation Name Comments Migraines Brother Other Brother elise vailormation Depression Father Cancer Maternal Grandfather Lupus Mother Migraines Mother Other Mother elise vargas alformation Relation Name Status Comments Brother Alive Father Alive Maternal Grandfather HLH can cer Maternal Grandmother Mother Alive Paternal Grandfather Alive Paternal Grandmother Son 1 Alive Son 2 Alive Social History Tobacco Use Types Packs/Day Years Used Date Smoking Tobacco: Never Smokeless Tobacco: Never Tobacco Cessation:Counseling Given: No Alcohol Use Standard Drinks/Week Comments Yes 0 (1 standard drink = 0.6 oz pur e alcohol) occassionally PHQ-2 Answer Date Recorded PHQ-2 TOTAL SCORE 2 01/07/2020 Social Connections Answer Date Recorded Do you often feel lonely or isolated from those around you? 0 08/09/2023 Financial Resource Strain Answer Date R ecorded Difficulty of Paying Living Expenses 3 08/09/2023 Difficulty of Paying Living Expenses Not on file 08/09/2023 Food Insecurity Answer Date Recorded Do you worry your food will run out before you are able to buy more? 1 08/09/2023 Transportation Needs Answer Date Record ed Does lack of transportation keep you from medica l appointments? 1 08/09/2023 Does lack of transportation keep you from work, meetings or getting things that you need? 1 08/09/2023 Housing Stability Answer Date Recorded What is your housing situation today? 1 08/09/2023 Utilities Answer Date Recorded Do you have trouble paying f or utilities (for example, heat, electricity, water, phone)? 1 08/09/2023 Comments No Sex and Gender Information Value Date Recorded Sex Assigned at Not on file Legal Sex Female 6:57 AM BLOW PIT HELPER Gender Identity Not on file Sexual Orientation Not on file Obstetrics History Para Term AB IAB SAB Ectopic Multiple Livin g Live Births 1 Date Outcome GA Total Labor Labor/2nd/3rd Weight Sex Type Anes PTL Surekha A1 A5 Name Clin Last Filed Vital Signs Vital Sign Reading Time Taken Comments Blood Pressure 123/79 03/31/2024 12:28 PM CDT Pulse 93 03/31/2024 12:28 PM CDT Temperature 37 C (98.6 F) 03/31/2024 12:28 PM CDT Respiratory Rate 22 03/31/2024 12:28 PM CDT Oxygen Saturation 96% 03/31/2024 12:28 PM CDT Inhaled Oxygen Concentration - - Weight 84.4 kg (186 lb) 03/31/2024 12:28 PM CDT Height 170.2 cm (5' 7) 05/30/2023 3:58 PM BLOW PIT HELPER Body Mass Index 29.13 05/30/2023 3:58 PM BLOW PIT HELPER Plan of Treatment Health Maintenance Due Date Last Done Comments Tdap 2006 HIV for age 15-65 2010 Hepatitis C screening for age 18-79 2013 Pap test for age 21-65 2016 Tetanus booster 12/29/2016 12/29/2006 BMI (ht and wt on same day) for age 18+ 01/06/2021 01/07/2020, 01/04/2020, 02/10/2017, Additional history exists Depression screening for age 12+ 01/06/2021 01/07/2020 COVID-19 vaccine series (2023- season) 2024 Influenza Vaccine (#1) 2024 Pneumococcal series for age 6-49 Aged Out No longer eligible based on patient's age to complete this topic Insurance [facility] [employer] INS Advance Directives * Full Code (Latest Code Status on File) Date Activated Date Inactivated Comments 04/13/2020 7:31 AM 04/13/2020 1:56 PM Question Answer Comments Code Status Discussion: Not Discussed * Full Code Date Activated Date Inactivated Comments 11/07/2015 6:02 AM 11/07/2015 12:22 PM * Full Code Date Activated Date Inactivated Comments 12/02/2014 1:23 PM 12/02/2014 6:55 PM Care Teams Benefits Technician Relationship Specialty Start Date End Date Uli [place] MD [address] [place] [address] PCP - General Family Practice 09/02/11
--- OUTSIDE RECORDS SUMMARY | 2024-08-15 13:51 | XMS_ITS | Clinical Summary ---
Author Organization [facility] Address [address] [place] [address] Care Team Providers Care Hand Drawer In Helper Name Role Phone Robbie Lee MD Primary Care Provider Imani Bennett APRN [employer] Unavailable + Allergies Active Allergy Reactions Criticality [...] 4 tablet 3 Active vitamin D2 (ERGOCALCIFEROL) 89847 units (1250 mcg) capsuleIndication s:Recurrent major depressive disorder, in full remission,Other fatigue,Multiple joint pain,Vitamin D deficiency Take 1 capsule (50,000 Units) by mouth once a week 12 capsule 3 4 Active penicillin V (VEETID) 500 MG tabletIndications :Acute tonsillitis, unspecified etiology Take 1 tablet (500 mg) by mouth 3 times daily for 10 days. for Strep throat. 30 tablet 5 08/15/19 25 Active Problems Problem Noted Date Diagnosed Date [...] Encounters Date Type Department Care Team Description 08/04/2024 11:30 AM PRIMARY CARE COORDINATOR Virtual Visit [address] [phone] Volodymyr Cabral MD Acute tonsillitis, unspecified etiology (Primary Dx) 06/10/2024 2:38 PM PRIMARY CARE COORDINATOR - 06/10/2024 11:59 PM PRIMARY CARE COORDINATOR Hospital Encounter [facility] [address], [address] [place] [phone] Imani Bennett APRN [employer] Breast pain; Rash; Nipple discharge Discharge Disposition: Home or Self Care 06/10/2024 2:37 PM PRIMARY CARE COORDINATOR Hospital Encounter [facility] [address], [address] [place] [phone] Imani Bennett APRN [employer] Breast pain; Rash; Nipple discharge Discharge Disposition: Home or Self Care 06/10/2024 Travel from Last 3 Months Immunizations Name Administration Dates Next Due DTAP (<7y) 12/30/2000, 7,1995,08/28,1995 HIB (PRP-T) 1995,1995,1995 HPV 01/15/2013,07/19/2009,09/01/2007 HepB 1995,1995,1995 Influenza (IIV3) PF 02/05/2012,04/17/2010 Influenza Vaccine >6 months,quad, PF 04/11/2020, 04/22/2019,03/11/2018 MMR (MMRII) 01/10/2001,07/16/1996 Meningococcal ACWY (Menactra ) 02/05/2012,09/01/2007 OPV, trivalent, live 01/10/2001,10/30/18 96,1995,05/31 Pneumococcal 23 [...] PHQ-2 Answer Date Recorded PHQ-2 Score 2 08/04/2024 [place] Depression Scale Answer Date Recorded Last EPDS [...] AM CDT Legal Sex Female 4:42 AM PRIMARY CARE COORDINATOR Gender Identity Female 01/26/2020 10:31 AM CDT Sexual Orientation Straight 01/26/2020 10 :31 AM CDT Last Filed Vital Signs Vital Sign Reading Time Taken Comments Blood Pressure 132/80 01/29/2024 8:07 AM CDT Pulse 98 01/29/2024 8:07 AM CDT Temperature 37.2 C (98.9 F) 01/29/2024 8:07 AM CDT Respiratory Rate 14 01/29/2024 8:07 AM CDT Oxygen Saturation 98% 01/29/2024 8:07 AM CDT Inhaled Oxygen Concentration - - Weight 85.7 kg (189 lb) 01/29/2024 8:07 AM CDT Height 170.2 cm (5' 7) 01/29/2024 8:07 AM CDT Body Mass Index 29.6 01/29/2024 8:07 AM CDT Plan of Treatment Upcoming Encounters Date Type Department Care Team (Late st Contact Info) Description 08/19/2024 9:00 AM CDT Office Visit [address] [phone] Imani Bennett, PARACHUTE OFFICER [facility] [address] [place] [id number] Health Maintenance Due Date Last Done Comments CT COLONOGRAPHY 1995 FIT 1995 FLEX SIG 1995 sDNA (Cologuard) 1995 YEARLY PREVENTIVE VISIT 02/04/2013 02/05/2012, 08/31 ASTHMA ACTION PLAN 11/18/2018 11/18/2017, 0 10/11/2016, 10/21/2015, Additional history exists Pneumococcal Vaccine: Pediatrics (0 to 5 Years) and At-Risk Patients (6 to 49 Years) (2 of 2 - PCV) 04/11/2021 04/11/2020 INFLUENZA VACCINE (#1) 2024 , 04/22/2019, 03/11/2018, Additional history exists DEPRESSION 12 MO INDEX REPEAT PHQ-9 08/18/2024 08/04/2024, 02/28/2024, 01/29/2024, Additional history exists ASTHMA CONTROL TEST 02/04/2025 08/04/2024, 01/29/2024, 07/16/2023, Additional history exists PHQ-9 02/04/2025 08/04/2024, 02/02, 01/29/2024, Additional history exists BMP 02/27/2025 02/28/2024, 01/02, 09/17/2023, Additional history exists ANNUAL REVIEW OF HM ORDERS 08/04/202508/04, 01/10/2023, 11/20/2021, Additional history exists ADVANCE CARE PLANNING 01/19/2028 01/18/2023, 018 COLONOSCOPY 04/23/2030 04/23/2023, 04/23/2023 COLORECTAL CANCER SCREENING 04/23/2030 DTAP/TDAP/TD IMMUNIZATION (10 - Td or Tdap) 05/18/2032 05/18/2022, 03/11/2018, 08/09/2014, Additional history exists ZOSTER IMMUNIZATION (1 of 2) 2045 COVID-19 Vaccine ( - season) 2112 Postponed from 02/02/2024 (Patient Declined) HEPATITIS B IMMUNIZATION Completed 996, 1995, 1995, Additional history exists MENINGITIS IMMUNIZATION Completed 02/05/2012, 08/31 HPV IMMUNIZATION Completed 01/15/2013, , 09/01/2007 MIGRAINE ACTION PLAN Completed 04/19/2013 DEPRESSION ACTION PLAN Completed 8, 10/17/2017, 10/11/2016, Additional history exists PAP Discontinued 07/03/2018, 12/03, 04/12/2014 HEPATITIS C SCREENING Discontinued 12/18/2021 HIV SCREENING Completed 12/18/2021, 09/03, 04/06/2014 CHLAMYDIA SCREENING Discontinued 09/17/2023, 01/30/2022, 12/18/2021, Additional history exists Procedures Procedure Name Priority Date/Time Associated Diagnosis Comments MA DIAGNOSTIC BILATERAL W/ BALBIR Routine 06/10/2024 3:37 PM PRIMARY CARE COORDINATOR Breast pain Rash Nipple discharge US BREAST BILATERAL LIMITED 1-3 QUADRANTS Routine 06/10/2024 3:36 PM PRIMARY CARE COORDINATOR Breast pain Rash Nipple discharge BASIC METABOLIC PANEL Routine 02/28/2024 2:26 PM CDT Diarrhea of presumed infectious origin CHLAMYDIA TRACHOMATIS/NEISSERI A GONORRHOEAE BY PCR STAT 09/17/2023 9:00 PM CDT COLONOSCOPY - HIM SCAN 04/23/2023 12:00 AM PRIMARY CARE COORDINATOR HIV ANTIGEN ANTIBODY COMBO Routine 12/18/2021 10:00 AM CDT HEPATITIS C ANTIBODY (EXTERNAL RESULT) Routine 12/18/2021 10:00 AM CDT PAP IMAGED THIN LAYER SCREEN Routine 07/03/2018 12:55 PM PRIMARY CARE COORDINATOR Encounter for visit ASTHMA ACTION PLAN Routine 10/11/2016 12 :06 PM CDT from Last 3 Months or Most Recently Relevant to Health Maintenance Results * MA Diagnostic Bilateral w/ Balbir (06/10/2024 3:37 PM PRIMARY CARE COORDINATOR) Anatomical Region Laterality Modality Breast Bilateral Mammography Impressions 06/10/2024 3:46 PM PRIMARY CARE COORDINATOR IMPRESSION: ACR BI-RADS CATEGORY: 1 - Negative. RECOMMENDED FOLLOW-UP: Routine yearly mammography beginning at age 40 or as discussed with your provider. Any further management of her ongoing breast symptoms can be based on clinical grounds. DAKOTA MENDOZA MD Narrative 06/10/2024 3:46 PM PRIMARY CARE COORDINATOR EXAM: MA DIAGNOSTIC BILATERAL W/ BALBIR, US BREAST BILATERAL LIMITED 1-3 QUADRANTS, 06/10/2024 3:37 PM HISTORY: Bilateral breast pain, intermittent right breast nipple discharge (not bloody), intermittent breast rash COMPARISON: Ultrasound 01/15/2023 BREAST DENSITY: The breasts are heterogeneously dense, which may obscure small masses. FINDINGS: Targeted ultrasound shows normal breast tissue in the area of clinical concern in the right breast at 8-9 o'clock 4 cm from the nipple, retroareolar, 7-8 o'clock 12 cm from the nipple. There is a normal intramammary lymph node in the right breast at 11:00 14 cm from the nipple. Due to ongoing nature of her breast symptoms and prior negative ultrasound workup, mammogram was requested. Diagnostic tomosynthesis with CAD shows nothing for malignancy in either breast. us Imani Bennett PARACHUTE OFFICER [employer] IMG MAMMOGRAPHY OR DERABLES Final Result * US Breast Bilateral Limited 1-3 Quadrants (06/10/2024 3:36 PM PRIMARY CARE COORDINATOR) Anatomical Region Laterality Modality Breast Bilateral Ultrasound Impressions 06/10/2024 3:46 PM PRIMARY CARE COORDINATOR IMPRESSION: ACR BI-RADS CATEGORY: 1 - Negative. RECOMMENDED FOLLOW-UP: Routine yearly mammography beginning at age 40 or as discussed with your provider. Any further management of her ongoing breast symptoms can be based on clinical grounds. DAKOTA MENDOZA MD Narrative 06/10/2024 3:46 PM PRIMARY CARE COORDINATOR EXAM: MA DIAGNOSTIC BILATERAL W/ BALBIR, US BREAST BILATERAL LIMITED 1-3 QUADRANTS, 06/10/2024 3:37 PM HISTORY: Bilateral breast pain, intermittent right breast nipple discharge (not bloody), intermittent breast rash COMPARISON: Ultrasound 01/15/2023 BREAST DENSITY: The breasts are heterogeneously dense, which may obscure small masses. FINDINGS: Targeted ultrasound shows normal breast tissue in the area of clinical concern in the right breast at 8-9 o'clock 4 cm from the nipple, retroareolar, 7-8 o'clock 12 cm from the nipple. There is a normal intramammary lymph node in the right breast at 11:00 14 cm from the nipple. Due to ongoing nature of her breast symptoms and prior negative ultrasound workup, mammogram was requested. Diagnostic tomosynthesis with CAD shows nothing for malignancy in either breast. us Imani Cherelle Bennett PARACHUTE OFFICER [employer] IMG US ORDERABLES Edited * Basic metabolic panel (Ca, Cl, CO2, Creat, Gluc, K, Na, BUN) (02/28/2024 2:26 PM CDT) Pathologist [facility] Sodium 137 135 - 145 mmol/L 02/29/2024 [...] AM CDT [facility] Comment:eGFR calculated usin g 2020 CKD-EPI equation. Calcium 9.2 8.8 - [...] - BLOOD ORDERABLES Final Result [facility] [place] [facility] [address] [facility], [address] [place] [address] * Chlamydia trachomatis/Neisseria gonorrhoeae by PCR (09/17/2023 9:00 PM CDT) Chlamydia Trachomatis Negative Negative 09/18/2023 10:57 AM CDT [facility] Comment: Negative for C. trachomatis rRNA by residential program worker mediated amplification. A negative result by residential program worker mediated amplification does not preclude the presence of infection because results are dependent on proper and adequate collection, absence of inhibitors and sufficient rRNA to be detected. Neisseria gonorrhoeae Negative Negative 09/18/2023 10:57 AM CDT [facility] Comment:Negative for N. gono rrhoeae rRNA by residential program worker mediated amplification. A negative result by residential program worker mediated amplification does not preclude the presence of C. trachomatis infection because results are dependent on proper and adequate collection, absence of inhibitors and sufficient rRNA to be detected. Swab VAGINAL STRUCTURE / Unknown Non-blood Collection / Unknown 09/17/2023 9:00 PM CDT 09/17/2023 9:08 PM CDT us Anna Gee DO LAB - MICRO GENERAL ORDERA BLES Final Result [facility]. [facility]. Lab [address] [facility], [address] [place] [address] * COLONOSCOPY - HIM SCAN (04/23/2023 12:00 AM PRIMARY CARE COORDINATOR) 04/23/2023 us Provider Outside PROCEDURES Final Result [...] d Result - Final Performing Organization Address City/[facility]/ZIP Co de Phone Number SHARAEZE PFT NON-INTERFACED (ONBASE SCANS) * HIV Antigen Antibody Combo (12/18/2021 10:00 AM CDT) HIV 1&2 Antibody (External) Non Reactive Non Reactive NON-INTERFAC ED (ONBASE SCANS) Blood 12/18/2021 10:0 0 AM CDT Narrative BREEZE PFT - 02/02/2022 9:36 AM CDT Verified by Husam Thompson on 02/02/2022. Provider Outside LAB - BLOOD ORDERABLES Edited R esult - Final Performing Organization Address City/[facility] Co de Phone Number NITESH PFT NON-INTERFACED (ONBASE SCANS) * Pap imaged thin layer screen only - recommended age 21 - 24 years (07/03/2018 12:55 PM PRIMARY CARE COORDINATOR) PAP ALETHA Castillo Report Patient Name: ANGIE HALE MR#: [id number] Specimen #: [id number] Collected: 07/03/2018 Received: 07/04/2018 Reported: 07/07/2018 15:26 Ordering Phy(s): ROBBIE LEE For improved result formatting, select 'View Enhanced Report Format' under Linked Documents section. SPECIMEN/STAIN PROCESS: Pap imaged thin layer prep screening (Surepath, FocalPoint with guided screening) Pap-Cyto x 1 SOURCE: Cervical, endocervical Pap imaged thin layer prep screening (Surepath, FocalPoint with guided screening) SPECIMEN ADEQUACY: Satisfactory for evaluation. -Transformation zone component present. CYTOLOGIC INTERPRETATION: Negative for intraepithelial lesion or malignancy Electronically signed out by: JAMES Herrera (ASCP) Processed and screened at [facility], [facility] CLINICAL HISTORY: Post-, A previous normal pap Date of Last Pap: 12/31/2015, Papanicolaou Test Limitations: Cervical cytology is a screening test with limited sensitivity; regular screening is critical for cancer prevention; Pap tests are primarily effective for the diagnosis/preventi on of squamous cell carcinoma, not adenocarcinomas or other cancers. TESTING LAB LOCATION: [address] [phone] COLLECTION SITE: Client: [facility] Location: [facility] (R) COPATH Cytologic material (specimen) 07/03/2018 12:55 PM PRIMARY CARE COORDINATOR 07/04/2018 9:59 AM PRIMARY CARE COORDINATOR us Robbie Lee MD LAB - OPTIME CLINICAL SPECIME N Final Result COPATH from Last 3 Months or Most Recently Relevant to Health Maintenance Additional Health Concerns Infection Onset Date Last Indicated ESBL 07/30/2022 07/30/2022 Insurance [facility] Advance Directives For more information, please contact: [phone] * Full Code (Latest Code Status on [...] 12:59 AM 09/28/2014 3:44 PM Care Teams Hand Drawer In Helper Relationship Specialty Start Date End Date Robbie Lee MD [address] [place] [address] PCP - General 11/19/05 Imani Bennett APRN [employer] [address] [place] [address] Assigned PCP 05/25/23
--- OUTSIDE RECORDS SUMMARY | 2024-08-15 13:51 | XMS_ITS | Encounter Summary ---
Author Organization [facility] Address [address] [place] [address] Care Team Providers Care Dredge Pipeman Name Role Phone Uli Lee MD Primary Care Provider [phone] Mercedez Hodge MD Unavailable Uli Lee MD Unavailable [phone] Imani Holman MORTGAGE PROFESSIONAL Unavailable Uli Lee MD Unavailable [phone] Imani Bennett APRN MORTGAGE PROFESSIONAL Unavailable + Uli Lee MD Unavailable [phone] Imani Bennett APRN MORTGAGE PROFESSIONAL Unavailable + Uli Lee MD Unavailable [phone] Uli Lee MD Unavailable [phone] Uli Lee MD Unavailable [phone] Imani Bennett APRN MORTGAGE PROFESSIONAL Unavailable + Imani Bennett APRN MORTGAGE PROFESSIONAL Unavailable + Encounter Details Date Type Department [...] AM CDT Legal Sex Female 4:42 AM MINI BAR ATTENDANT Gender Identity Female 01/26/2020 10:31 AM CDT Sexual Orientation Straight 01/26/2020 10 :31 AM CDT COVID-19 Exposure Response Date Recorded In the last month, have you been in contact with someone who was confirmed or suspected to have Coronavirus / COVID-19? No / Unsure 08/05/2021 2:35 PM MINI BAR ATTENDANT documented as of this encounter Plan of Treatment Upcoming Encounters Date Type Department Care Team (Late st Contact Info) Description 08/19/2024 9:00 AM CDT Office Visit [address] [phone] Imani Bennett, OSWALDO [address] [id number] documented as of this encounter Visit Diagnoses Not on filedocumented in this encounter Additional Health Concerns Infection Onset Date Last Indicated Resolved Time Rule Out COVID-19 12/09/2021 12/09/2021 12/09/2021 6:55 PM CDT COVID-19 12/09/2021 12/09/2021 12/30/2021 11:4 1 PM CDT Rule Out COVID-19 07/30/2022 07/30/2022 07/31/2022 5:53 PM MINI BAR ATTENDANT ESBL 07/30/2022 07/30/2022 Rule Out COVID-19 12/31/2022 12/31/2022 12/31/2022 7:30 AM CDT Rule Out C-difficile 02/28/2024 03/04/20242 024 11:39 PM CDT Assessment Noted Time PHQ-9 Depression Total Score: 11 021 7:03 AM MINI BAR ATTENDANT documented as of this encounter Care Teams Dredge Pipeman Relationship Specialty Start Date End Date Uli Lee MD [address] [place] [address] PCP - General 11/19/05 Mercedez Hodge MD [address] [place], [place] [id number] [address] Assigned Neuroscience Provider 05/14/21 11/02/22 Uli Lee MD [address] [place] [address] Assigned PCP 06/11/21 10/14/21 Imani Holman CNP [address] [place] [address] Assigned PCP 10/15/21 04/20/22 Uli Lee MD [address] [place] [address] Assigned PCP 04/21/22 08/24/22 Imani Bennett APRN MORTGAGE PROFESSIONAL [address] [place] [address] Assigned PCP 08/25/22 09/14/22 Uli Lee MD [address] [place] [address] Assigned PCP 09/15/22 10/05/22 Imani Bennett APRN MORTGAGE PROFESSIONAL [facility] [place] [address] Assigned PCP 10/06/22 01/18/23 Uli Lee MD [address] [place] [address], [place] [address] Assigned PCP 01/19/23 05/24/23 Uli Lee MD [address] [place] [address], [place] [address] Assigned Pain Medication Provider 02/02/23 02/22/23 Uli Lee MD [address] [place] [address], [place] [address] Assigned Pain Medication Provider 03/16/23 05/31/23 Imani Bennett APRN MORTGAGE PROFESSIONAL [address] [place] [address], [place] [address] Assigned Pain Medication Provider 06/01/23 06/26/23 Imani Bennett APRN MORTGAGE PROFESSIONAL [address] [place] [address], [place] [address] Assigned PCP 05/25/23 documented as of this encounter
--- OUTSIDE RECORDS SUMMARY | 2024-08-15 13:51 | XMS_ITS | Referral Summary ---
Author Organization [facility] Address [address] [place] [address] Care Team Providers Care Numerical Control Machine Tool Operator Name Role Phone Unavailable Primary Care Provider [...] Problem Noted Date Diagnosed Date Endometriosis 09/02/2023 Social History Tobacco Use Types Packs/Day Years Used Date Smoking Tobacco: Former Cigarettes Tobacco Cessation:Counseling Given: Not Answered Alcohol Use Standard Drinks/Week Comments Yes 0 (1 standard drink = 0.6 oz pur e alcohol) occ Comments No Sex and Gender Information Value Date Recorded Sex Assigned at Not on file Legal Sex Female 10:02 AM LOSS MITIGATION SPECIALIST Gender Identity Not on file Sexual Orientation [...] 08/29/2023 9:49 AM CDT Plan of Treatment Not on file Insurance [facility]
--- OUTSIDE RECORDS SUMMARY | 2024-08-15 13:51 | XMS_ITS | Encounter Summary ---
Author Organization [place] Address [address] [facility] [place] [address] Care Team Providers Care Musical Instrument Supervisor Name Role Phone Uli Lee MD Primary Care Provider [phone] Mercedez Hodge MD Unavailable Imani Holman FARM TRUCK DRIVER Unavailable [phone] Uli Lee MD Unavailable [phone] Imani Bennett APRN FARM TRUCK DRIVER Unavailable + Uli Lee MD Unavailable [phone] Imani Bennett APRN FARM TRUCK DRIVER Unavailable + Uli Lee MD Unavailable [phone] Uli Lee MD Unavailable [phone] Uli Lee MD Unavailable [phone] Imani Bennett APRN FARM TRUCK DRIVER Unavailable + Imani Bennett APRN FARM TRUCK DRIVER Unavailable + Encounter Details Date Type Department Care Team (Late st Contact Info) Description 12/18/2021 External Order Results [facility] [address] [place] [address] Outside, Provider Social History Tobacco Use Types [...] AM CDT Legal Sex Female 4:42 AM CONSTRUCTION MATERIALS TESTER Gender Identity Female 01/26/2020 10:31 AM CDT Sexual Orientation Straight 01/26/2020 10 :31 AM CDT COVID-19 Exposure Response Date Recorded In the last 10 days, have yo u been in contact with someone who was confirmed or suspected to have Coronavirus/COVID-19? Yes 12/12/2021 8:06 AM CDT documented as of this encounter Plan of Treatment Upcoming Encounters Date Type Department Care Team ([facility] st Contact Info) Description 08/19/2024 9:00 AM CDT Office Visit [address] [phone] Imani Bennett, HOSPICE NURSE PRACTITIONER [address] [phone] documented as of this encounter Procedures Procedure [...] Final BREEZE PFT NON-INTERFACED (ONBASE SCANS) * Treponema [...] RH (External Result) (12/18/2021 10:00 AM CDT) Pathologist [facility] ABO (External) A NON-I NTERFACED (ONBASE SCANS) [...] Antibody Combo (12/18/2021 10:00 AM CDT) Pathologist [facility] HIV 1&2 Antibody (External) Non Reactive Non Reactive NON-INTERFAC ED (ONBASE SCANS) Blood 12/18/2021 10:0 0 AM CDT Narrative BREEZE PFT - 02/02/2022 9:36 AM CDT Verified by Husam Thompson on 02/02/2022. us Provider Outside LAB - BLOOD ORDERABLES Edited R esult - Final BREEZE PFT NON-INTERFACED (ONBASE SCANS) * CBC with Platelets & Differential (12/18/2021 10:00 AM CDT) Pathologist [facility] WBC Count (External) 9.3 3.4 - 10.8 [...] Blood 12/18/2021 10:0 0 AM CDT Narrative NITESH CORLEY - 02/02/2022 9:36 AM CDT Verified by Husam Thompson on 02/02/2022. us Provider Outside LAB - BLOOD ORDERABLES Edited R esult - Final NITESH CORLEY NON-INTERFACED (ONBASE SCANS) * Hepatitis C Antibody (External Result) (12/18/2021 10:00 AM CDT) Hepatitis C Antibody (External) 0.4 0.0 - 0.9 ratio NON-INTERFACED (ONBASE SCANS) 12/18/2021 10:0 0 AM CDT Narrative BREEZE PFT - 02/02/2022 9:36 AM CDT Verified by Husam Thompson on 02/02/2022. us Provider Outside LAB - HIM EXTERNAL RESULT Edite d Result - Final BREEZE PFT NON-INTERFACED (ONBASE SCANS) * Rubella Antibody IgG (External Result) (12/18/2021 10:00 AM CDT) Rubella Antibody IgG (External) 1.04 Immune >0.99 index NON-INTERFACED (ONBASE SCANS) 12/18/2021 10:0 0 AM CDT Narrative BREEZE PFT - 02/02/2022 9:36 AM CDT Verified by Husam Thompson on 02/02/2022. us Provider Outside LAB - HIM EXTERNAL RESULT Edite d Result - Final Performing Organization Address [facility]/ZIP Co de Phone Number BREEZE PFT NON-INTERFACED [...] Thompson on 02/02/2022. Provider Outside LAB - HIM EXTERNAL RESULT Edite d Result - Final Performing Organization Address [facility] Co de Phone Number BREEZE PFT NON-INTERFACED (ONBASE SCANS) * Chlamydia Trachomatis PCR (External Result) (12/18/2021 5:17 AM CDT) Chlamydia Trachomatis PCR Negative Negative NON-INTERFAC E D (ONBASE SCANS) 12/18/2021 5:17 AM CDT Narrative BREEZE PFT - 02/02/2022 9:24 AM CDT Verified by Husam Thompson on 02/02/2022. us Provider Outside LAB - HIM EXTERNAL RESULT Edite d Result - Final Performing Organization Address [facility] Co de Phone Number BREEZE PFT NON-INTERFACED (ONBASE SCANS) documented in this encounter Visit Diagnoses Not on filedocumented in this encounter Additional Health Concerns Infection Onset Date Last Indicated Resolved Time COVID-19 12/09/2021 12/09/2021 12/30/2021 11:4 1 PM CDT Rule Out COVID-19 07/30/2022 07/30/2022 07/31/2022 5:53 PM CONSTRUCTION MATERIALS TESTER ESBL 07/30/2022 07/30/2022 Rule Out COVID-19 12/31/2022 12/31/2022 12/31/2022 7:30 AM CDT Rule Out C-difficile 02/28/2024 03/04/2024 024 11:39 PM CDT Assessment Noted Time PHQ-9 Depression Total Score: 8 11/21/19 22 4:22 PM CDT documented as of this encounter Care Teams Musical Instrument Supervisor Relationship Specialty Start Date End Date Uli Lee MD [address] [place] [address] PCP - General 11/19/05 Mercedez Hodge MD [address] [place] [address] [id number] [address] Assigned Neuroscience Provider 05/14/21 11/02/22 Imani Holman FARM TRUCK DRIVER [address] [place] [address] Assigned PCP 10/15/21 04/20/22 Uli Lee MD [address] [place] [address] Assigned PCP 04/21/22 08/24/22 Imani Bennett APRN FARM TRUCK DRIVER [address] [place] [address] Assigned PCP 08/25/22 09/14/22 Uli Lee MD [address] [place] [address] Assigned PCP 09/15/22 10/05/22 Imani Bennett APRN FARM TRUCK DRIVER [address] [place] [address] Assigned PCP 10/06/22 01/18/23 Uli Lee MD [address] [place] [address], [place] [address] Assigned PCP 01/19/23 05/24/23 Uli Lee MD [address] [place] [address], [place] [address] Assigned Pain Medication Provider 02/02/23 02/22/23 Uli Lee MD [address] [place] [address], [place] [address] Assigned Pain Medication Provider 03/16/23 05/31/23 Imani Bennett APRN FARM TRUCK DRIVER [address] [place] [address], [place] [address] Assigned Pain Medication Provider 06/01/23 06/26/23 Imani Bennett APRN FARM TRUCK DRIVER [address] [place] [address], [place] [address] Assigned PCP 05/25/23 documented as of this encounter
--- OUTSIDE RECORDS SUMMARY | 2024-08-15 13:51 | XMS_ITS | Clinical Summary ---
[facility] Organization [facility] Address [address] [place] [address] Care Team Providers Care Payer Specialist Name Role Phone Uli Lee MD Primary Care Provider Source Comments You are receiving this document as you are listed as the primary care provider,follow-up provider, or the patient has been referred to you for consultation.This is in compliance with the Medicare and[facility] Hospitalca[facility] EHR Incentive Program,which states Providers who transition their patient to another setting of careor provider of care or refers their patient to another provider of care shouldprovide summary care record for each transition of care or referral. [place] Allergies Active Allergy Reactions Criticality Noted Date Comments Avocado Itching 04/05/2023 Doxycycline Nausea And Vomiting 04/18/2020 Hydrocodone Nausea Low 12/09/2018 And dizziness Nuts Itching 04/05/2023 Medications FLOVENT HFA 110 MCG/ACT inhaler Inhale 2 Puffs two times a day. 12/21/19 20 Active ibuprofen (MOTRIN) 200 MG tablet Take 1 Tablet (200 mg) by mouth. Active ALBUterol sulfate HFA 108 (90 Base) MCG/ACT inhaler Inhale 1-2 Puffs every 4 hours as needed for Wheezing or Shortness of Breath. 1 Each 02/04/20 21 Active ondansetron (ZOFRAN-ODT) 4 MG disintegrating tabletIndications: Abdominal pain, vomiting, and diarrhea Take 1 Tablet (4 mg) by mouth every 8 hours as needed for Nausea. 10 Tablet 08/25/19 22 Active XARELTO 15 MG tablet Take 1 Tablet (15 mg) by mouth two times a day. 09/01/19 23 Active hydrOXYzine HCl (ATARAX) 50 MG tablet take 1-2 tablets Q6 hours prn pain Active metoclopramide (REGLAN) 5 MG tablet Take 1 Tablet (5 mg) by mouth 4 times a day. 03/19/20 23 Active ipratropium-albute rol (COMBIVENT RESPIMAT) 20-100 mcg/actuation inhaler Inhale 1 Puff. Activ e ORILISSA 150 MG TABS Take 1 Tablet (150 mg) by mouth daily. Active dicyclomine (BENTYL) 20 MG tablet TAKE 1 TABLET BY MOUTH UP TO FOUR TIMES DAILY NEEDED FOR ABDOMINAL CRAMPS OR PAIN Active clotrimazole (MYCELEX) 10 MG promise SMARTSI Lozenge(s) By Mouth 4 Times Daily 03/15/20 23 Active acetaminophen 500 MG capsule Take 2 Capsules (1,000 mg) by mouth every 6 hours. Active methylPREDNISolone (MEDROL 21 TABLET DOSEPACK) 4 MG tablet Take 1 Tablet (4 mg) by mouth .. follow package directions 21 Tablet 07/22/19 24 Active Additional Information Patient not taking.Reported on 11/17/2023 cyclobenzaprine (FLEXERIL) 5 MG tablet Take 1-2 Tablets (5-10 mg) by mouth two times daily as needed for Muscle Spasms (neck and back pain). 30 Tablet 07/22/19 24 Active Active Problems Problem Noted Date [...] of Binge Drinking Not on file 11/2019 Comments No Sex and Gender Information Value Date Recorded Sex Assigned at Not on file Legal Sex Female 3:03 AM CDT Gender Identity Not on file Sexual Orientation Not on file Occupation Industry Job Start Date Job End Date currently unemployed Not on file Not on file Not on file Last Filed Vital Signs Vital Sign Reading Time Taken Comments Blood Pressure 122/85 12/18/2022 8:03 AM CDT Pulse 83 12/18/2022 8:03 AM CDT Temperature 36.7 C (98.1 F) 11/17/2023 12:13 PM CDT Respiratory Rate 16 12/18/2022 8:03 AM CDT [...] C Screening (Preventive Services) 1995 Asthma ACT (score of 20 or higher) 1999 Adult Preventive Visit 2013 HepB (1) 2014 Pneumococcal (2 of 2 - PCV) 04/11/2021 04/11/2020 COVID-19 Vaccine (1 [...] on patient's age to complete this topic Meningococcal B Aged Out No longer el igible based on patient's age to complete this [...] Detected Not Detected 11/20/2021 12:59 PM CDT [facility] N. gonorrhoeae STD Not Detected Not Detected 11/20/2021 12:59 PM CDT [facility] Swab STD SPECIMEN FROM VAGINA / Unknown Non-blood Collection / Unknown 11/18/2021 12:43 PM CDT 11/18/2021 12:50 PM CDT Narrative [facility] - 11/20/2021 12:59 PM CDT Test performed by Skein Drier Mediated Amplification (TMA). us Sharita Tay MD LAB_1 Final Result [facility] [address] [address] [[email or web address]] [phone] * LAB HIV-1 p24 AND HIV-1/HIV-2 ANTIBODIES (09/30/2017 3:22 PM CDT) HIV-1 p24 Ag and HIV-1/HIV-2 Ab Nonreactive Nonreactive PN SOFT 09/30/2017 3:22 PM CDT 09/30/2017 9:16 PM CDT Narrative PN SOFT - 09/30/2017 9:56 PM CDT Performed at [address] [address] CLIA number [id number] us Jim Dale MD LAB_1 Final Result PN SOFT [address] [place] [address] from Last 3 Months or Most Recently Relevant to Health Maintenance Insurance [facility] Care Teams Payer Specialist Relationship Specialty Start Date End Date Uli Lee MD [address] [place] [address] PCP - General 11/25/14
--- OUTSIDE RECORDS SUMMARY | 2024-08-15 13:51 | XMS_ITS | Encounter Summary ---
Author Organization [place] Address [address] [place] [address] Care Team Providers Care Supervisor [employer] Name Role Phone Uli Lee MD Primary Care Provider [phone] Mercedez Hodge MD Unavailable Uli Lee MD Unavailable [phone] Imani Holman COMMUNITY DEVELOPMENT MANAGER Unavailable Uli Lee MD Unavailable [phone] Imani Bennett APRN COMMUNITY DEVELOPMENT MANAGER Unavailable + Uli Lee MD Unavailable [phone] Imani Bennett APRN COMMUNITY DEVELOPMENT MANAGER Unavailable + Uli Lee MD Unavailable [phone] Uli Lee MD Unavailable [phone] Uli Lee MD Unavailable [phone] Imani Bennett APRN COMMUNITY DEVELOPMENT MANAGER Unavailable + Imani Bennett APRN COMMUNITY DEVELOPMENT MANAGER Unavailable + Encounter Details Date Type Department [...] AM CDT Legal Sex Female 4:42 AM ACTUARIAL ANALYST Gender Identity Female 01/26/2020 10:31 AM CDT Sexual Orientation Straight 01/26/2020 10 :31 AM CDT COVID-19 Exposure Response Date Recorded In the last month, have you been in contact with someone who was confirmed or suspected to have Coronavirus / COVID-19? No / Unsure 07/10/2021 8:37 AM ACTUARIAL ANALYST documented as of this encounter Plan of Treatment Upcoming Encounters Date Type Department Care Team (Late st Contact Info) Description 08/19/2024 9:00 AM CDT Office Visit [address] [phone] Imani Bennett, OSWALDO [address] [id number] documented as of this encounter Visit Diagnoses Not on filedocumented in this encounter Additional Health Concerns Infection Onset Date Last Indicated Resolved Time Rule Out COVID-19 07/10/2021 07/10/2021 07/10/2021 9:43 AM ACTUARIAL ANALYST Influenza 07/10/2021 07/10/2021 07/17/2021 11:3 9 PM ACTUARIAL ANALYST Rule Out COVID-19 12/09/2021 12/09/2021 12/09/2021 6:55 PM CDT COVID-19 12/09/2021 12/09/2021 12/30/2021 11:4 1 PM CDT Rule Out COVID-19 07/30/2022 07/30/2022 07/31/2022 5:53 PM ACTUARIAL ANALYST ESBL 07/30/2022 07/30/2022 Rule Out COVID-19 12/31/2022 12/31/2022 12/31/2022 7:30 AM CDT Rule Out C-difficile 02/28/2024 03/04/2024 024 11:39 PM CDT Assessment Noted Time PHQ-9 Depression Total Score: 11 021 7:03 AM ACTUARIAL ANALYST documented as of this encounter Care Teams Supervisor Brew [employer] Relationship Specialty Start Date End Date Uli Lee MD [address] [place] [address] PCP - General 11/19/05 Mercedez Hodge MD [address] [place], [place] [id number] [address] Assigned Neuroscience Provider 05/14/21 11/02/22 Uli Lee MD [address] [place] [address] Assigned PCP 06/11/21 10/14/21 Imani Holman, COMMUNITY DEVELOPMENT MANAGER [address] [place] [address] Assigned PCP 10/15/21 04/20/22 Uli Lee MD [address] [place] [address] Assigned PCP 04/21/22 08/24/22 Imani Bennett APRN COMMUNITY DEVELOPMENT MANAGER [address] [place] [address] Assigned PCP 08/25/22 09/14/22 Uli Lee MD [address] [place] [address], [place] [address] Assigned PCP 09/15/22 10/05/22 Imani Bennett APRN COMMUNITY DEVELOPMENT MANAGER [address] [place] [address], [place] [address] Assigned PCP 10/06/22 01/18/23 Uli Lee MD [address] [place] [address], [place] [address] Assigned PCP 01/19/23 05/24/23 Uli Lee MD [address] [place] [address], [place] [address] Assigned Pain Medication Provider 02/02/23 02/22/23 Uli Lee MD [address] [place] [address], [place] [address] Assigned Pain Medication Provider 03/16/23 05/31/23 Imani Bennett APRN COMMUNITY DEVELOPMENT MANAGER [address] [place] [address], [place] [address] Assigned Pain Medication Provider 06/01/23 06/26/23 Imani Bennett APRN COMMUNITY DEVELOPMENT MANAGER [address] [place] [address], [place] [address] Assigned PCP 05/25/23 documented as of this encounter
--- OUTSIDE RECORDS SUMMARY | 2024-08-15 13:51 | XMS_ITS | Encounter Summary ---
Author Organization [place] Address [address] [place] [address]. [place] [address] Care Team Providers Care Cloth Bin Packer Name Role Phone Uli Lee MD Primary Care Provider [phone] Imani Bennett APRN INDUSTRIAL GAS SERVICER Unavailable + Reason for Visit * Reason Onset Date Comments Call To Schedule Appointment 08/12/2023 Encounter Details Date Type Department Care Team (Late st Contact Info) Description 08/12/[address] [phone] Uli Lee MD [address] [place] [address] Call To Schedule Appointment Social History Tobacco Use Types Packs/Day Years Used Date Smoking Tobacco: Former Cigarettes Q uit: 2020 Smokeless Tobacco: Former Comments:dad smokes outside of house Alcohol Use Standard Drinks/Week Comments Not Currently 0 (1 standard drink = 0.6 oz pur e alcohol) PHQ-2 Answer Date Recorded PHQ-2 Score 2 07/16/2023 [place] Depression Scale Answer Date Recorded Last EPDS [...] AM CDT Legal Sex Female 4:42 AM PUMPER GAGER Gender Identity Female 01/26/2020 10:31 AM CDT [...] [facility] or would you prefer to receive a phone call?: Patient would prefer a phone call Okay to leave a detailed message?: Yes at Home number on file [phone] (home) Call taken on 08/12/2023 at 8:25 AM by Janeen Reynolds documented in this encounter Plan of Treatment Upcoming Encounters Date Type Department Care Team (Late st Contact Info) Description 08/19/2024 9:00 AM CDT Office Visit [address] [phone] Imani Bennett, OSWALDO [facility] [address] [place] [address] documented as of this encounter Visit Diagnoses Not on filedocumented in this encounter Additional Health Concerns Infection Onset Date Last Indicated Resolved Time ESBL 07/30/2022 07/30/2022 Rule Out C-difficile 02/28/2024 03/04/2024 024 11:39 PM CDT Assessment Noted Time PHQ-9 Depression Total Score: 10 024 4:18 PM PUMPER GAGER documented as of this encounter Care Teams Cloth Bin Packer Relationship Specialty Start Date End Date Uli Lee MD [address] [place] [address] PCP - General 11/19/05 Imani Bennett APRN INDUSTRIAL GAS SERVICER [address] [place] [address] Assigned PCP 05/25/23 documented as of this encounter
--- OUTSIDE RECORDS SUMMARY | 2024-08-15 13:51 | XMS_ITS | CCD ---
Author Name [facility], [id number] Address [address] [place] [address] [address] [place] [address] [facility] Address [address] [place] [address] Care Team Providers Care Ip Attorney Name Role Phone Nate Lopez Unavailable Unavailable Jeffery Hernandez Unavailable Unavailable Reason for Visit Medications Social History
--- OUTSIDE RECORDS SUMMARY | 2024-08-15 13:51 | XMS_ITS | Encounter Summary ---
Author Organization [place] Address [facility] [place] [address] Care Team Providers Care Placement Director Name Role Phone Uli Lee MD Primary Care Provider Mercedez Hodge MD Unavailable Uli Lee MD Unavailable [phone] Imani Bennett APRN ENGINEER FIRST ASSISTANT Unavailable + Uli Lee MD Unavailable [phone] Imani Bennett APRN ENGINEER FIRST ASSISTANT Unavailable + Uli Lee MD Unavailable [phone] Uli Lee MD Unavailable [phone] Uli Lee MD Unavailable [phone] Imani Bennett APRN ENGINEER FIRST ASSISTANT Unavailable + Imani Bennett APRN ENGINEER FIRST ASSISTANT Unavailable + Encounter Details Date Type Department Care Team (Late st Contact Info) Description 08/07/2022 [facility] [id number] [place] [address] [address] [facility] [place] [phone] Gerardo Bai PA [address] [place] [address] Social History Tobacco Use Types Packs/Day Years Used Date Smoking Tobacco: Former Cigarettes Q uit: 2020 Smokeless Tobacco: Former Comments:dad smokes outside of house Alcohol Use Standard Drinks/Week Comments Not Currently 0 (1 standard drink = 0.6 oz pur e alcohol) PHQ-2 Answer Date Recorded PHQ-2 Score 1 07/30/2022 [place] Depression Scale Answer Date Recorded Last EPDS Total Score Not on file 07/08/2022 The thought of harming myself has occurred to me . Never 07/08/2022 Comments No Sex and Gender Information Value Date Recorded Sex Assigned at Female 01/26/2020 10:31 AM CDT Legal Sex Female 4:42 AM NURSE ORTHO Gender Identity Female 01/26/2020 10:31 AM CDT Sexual Orientation Straight 01/26/2020 10 :31 AM CDT COVID-19 Exposure Response Date Recorded In the last 10 days, have yo u been in contact with someone who was confirmed or suspected to have Coronavirus/COVID-19? No / Unsure 08/10/2022 8:49 AM NURSE ORTHO documented as of this encounter Plan of Treatment Upcoming Encounters Date Type Department Care Team (Late st Contact Info) Description 08/19/2024 9:00 AM CDT Office Visit [address] [phone] Imani Bennett, OSWALDO [address] [address] documented as of this encounter Visit Diagnoses Not on filedocumented in this encounter Additional Health Concerns Infection Onset Date Last Indicated Resolved Time ESBL 07/30/2022 07/30/2022 Rule Out COVID-19 12/31/2022 12/31/2022 12/31/2022 7:30 AM CDT Rule Out C-difficile 02/28/2024 03/04/2024 024 11:39 PM CDT Assessment Noted Time PHQ-9 Depression Total Score: 4 07/30/19 5:35 PM NURSE ORTHO documented as of this encounter Care Teams Placement Director Relationship Specialty Start Date End Date Uil Lee MD [address] [place] [address] PCP - General 11/19/05 Mercedez Hodge MD [address] [place], [place] [id number] [address] Assigned Neuroscience Provider 05/14/21 11/02/22 Uli Lee MD [address] [place] [address] Assigned PCP 04/21/22 08/24/22 Imani Bennett APRN ENGINEER FIRST ASSISTANT [address] [place] [address] Assigned PCP 08/25/22 09/14/22 Uli Lee MD [address] [place] [address] Assigned PCP 09/15/22 10/05/22 Imani Bennett APRN ENGINEER FIRST ASSISTANT [address] [place] [address] Assigned PCP 10/06/22 01/18/23 Uli Lee MD [address] [place] [address] Assigned PCP 01/19/23 05/24/23 Uli Lee MD [address] [place] [address] Assigned Pain Medication Provider 02/02/23 02/22/23 Uli Lee MD [address] [place] [address] Assigned Pain Medication Provider 03/16/23 05/31/23 Imani Bennett APRN ENGINEER FIRST ASSISTANT [address] [place] [address] Assigned Pain Medication Provider 06/01/23 06/26/23 Imani Bennett APRN ENGINEER FIRST ASSISTANT [address] [place] [address] Assigned PCP 05/25/23 documented as of this encounter
--- OUTSIDE RECORDS SUMMARY | 2024-08-15 13:51 | XMS_ITS | Encounter Summary ---
Author Organization [place] Address [facility] [place] [address] Care Team Providers Care School Counsellor Name Role Phone Uli Lee MD Primary Care Provider [phone] Uli Lee MD Unavailable [phone] Imani Holman STORE WAREHOUSE ASSOCIATE Unavailable Mercedez Hodge MD Unavailable [phone] Uli Lee MD Unavailable [phone] Imani Holman STORE WAREHOUSE ASSOCIATE Unavailable +[phone] Uli Lee MD Unavailable +[phone] Imani Bennett APRN STORE WAREHOUSE ASSOCIATE Unavailable + Uli Lee MD Unavailable [phone] Imani Bennett APRN STORE WAREHOUSE ASSOCIATE Unavailable + Uli Lee MD Unavailable [phone] Uli Lee MD Unavailable [phone] Uli Lee MD Unavailable [phone] Imani Bennett APRN STORE WAREHOUSE ASSOCIATE Unavailable + Imani Bennett APRN STORE WAREHOUSE ASSOCIATE Unavailable + Encounter Details Date Type Department Care Team (Late st Contact Info) Description 01/03/2021 MyC Medical Advice [address] [phone] Imani Holman, STORE WAREHOUSE ASSOCIATE [address] [place], [place] [phone] Social History Tobacco Use Types Packs/Day Years [...] AM CDT Legal Sex Female 4:42 AM PORCELAIN ENAMELER Gender Identity Female 01/26/2020 10:31 AM CDT [...] Description 08/19/2024 9:00 AM CDT Office Visit [address] [phone] Imani Bennett APRN STORE WAREHOUSE ASSOCIATE [address] [place] [address] [phone] documented as of this encounter Visit Diagnoses Not on filedocumented in this encounter Additional Health Concerns Infection Onset Date Last Indicated Resolved Time Rule Out COVID-19 07/10/2021 07/10/2021 07/10/2021 9:43 AM PORCELAIN ENAMELER Influenza 07/10/2021 07/10/2021 07/17/2021 11:3 9 PM PORCELAIN ENAMELER Rule Out COVID-19 12/09/2021 12/09/2021 12/09/2021 6:55 PM CDT COVID-19 12/09/2021 12/09/2021 12/30/2021 11:4 1 PM CDT Rule Out COVID-19 07/30/2022 07/30/2022 07/31/2022 5:53 PM PORCELAIN ENAMELER ESBL 07/30/2022 07/30/2022 Rule Out COVID-19 12/31/2022 12/31/2022 12/31/2022 7:30 AM CDT Rule Out C-difficile 02/28/2024 03/04/2024 024 11:39 PM CDT Assessment Noted Time PHQ-9 Depression Total Score: 10 021 10:57 AM CDT documented as of this encounter Care Teams School Counsellor Relationship Specialty Start Date End Date Uli Lee MD [address] [place] [address]62 PCP - General 11/19/05 Uli Lee MD [address] [place] [address] [phone] Assigned PCP 03/13/20 01/28/21 Imani Holman, STORE WAREHOUSE ASSOCIATE [address] [place] [address] 19144 Assigned PCP 01/29/21 06/10/21 Mercedez Hodge MD [address] [place] [address] [id number] [address] Assigned Neuroscience Provider 05/14/21 11/02/22 Uli Lee MD [address] [place] [address] 41054 Assigned PCP 06/11/21 10/14/21 Imani Holman STORE WAREHOUSE ASSOCIATE [address] [place] [address], [place] [address] Assigned PCP 10/15/21 04/20/22 Uli Lee MD [address] [place] [address] 11318 Assigned PCP 04/21/22 08/24/22 Imani Bennett APRN STORE WAREHOUSE ASSOCIATE [address] [place] [address] 02119 Assigned PCP 08/25/22 09/14/22 Uli Lee MD [address] [place] [address] 40390 Assigned PCP 09/15/22 10/05/22 Imani Bennett APRN STORE WAREHOUSE ASSOCIATE [address] [place] [address] 99416 Assigned PCP 10/06/22 01/18/23 Uli Lee MD [address] [place] [address] 64685 Assigned PCP 01/19/23 05/24/23 Uli Lee MD [address] [place] [address] 56480 Assigned Pain Medication Provider 02/02/23 02/22/23 Uli Lee MD [address] [place] [address] 30766 Assigned Pain Medication Provider 03/16/23 05/31/23 Imani Bennett APRN STORE WAREHOUSE ASSOCIATE [address] [place] [address] [phone] Assigned Pain Medication Provider 06/01/23 06/26/23 Imani Benentt APRN STORE WAREHOUSE ASSOCIATE [address] [place] [address] [phone] Assigned PCP 05/25/23 documented as of this encounter
--- OUTSIDE RECORDS SUMMARY | 2024-08-15 13:51 | XMS_ITS | Encounter Summary ---
Author Organization [place] Address [address] [place] [address] Care Team Providers Care Wetlands Conservation Laborer Name Role Phone Uli Lee MD Primary Care Provider [phone] Imani Bennett APRN NITROGLYCERIN SEPARATOR OPERATOR Unavailable + Reason for Visit * Reason Comments Hospital F/U Encounter Details Date Type Department Care Team (Late st Contact Info) Description 08/04/2024 11:30 AM ORTHO ASSISTANT Virtual Visit [facility] [address] [place] [phone] [place] [address] [place], [place] [address] Acute tonsillitis, unspecified etiology (Primary Dx) Social History Tobacco Use Types Packs/Day Years Used Date Smoking Tobacco: Former Cigarettes Q uit: 2020 Smokeless Tobacco: Former Comments:dad smokes outside of house Alcohol Use Standard Drinks/Week Comments Not Currently 0 (1 standard drink = 0.6 oz pur e alcohol) PHQ-2 Answer Date Recorded PHQ-2 Score 2 08/04/2024 New Era Depression Scale Answer Date Recorded Last EPDS [...] AM CDT Legal Sex Female 4:42 AM ORTHO ASSISTANT Gender Identity Female 01/26/2020 10:31 AM CDT Sexual Orientation Straight 01/26/2020 10 :31 AM CDT documented as of this encounter Progress Notes * Volodymyr Cabral MD - 08/04/2024 11:30 AM CST Tate is a 29 year old who is being evaluated via a billable video visit. How would you like to obtain your AVS? MyChart If the video visit is dropped, the invitation should be resent by: Text to cell phone: [phone] Will anyone else be joining your video visit? No Assessment & Plan (J03.90) Acute tonsillitis, unspecified etiology (primary encounter diagnosis) Comment: the patient describes throat pain lasting longer than a viral URI, and she was not tested for strep early in the illness. I think we should start by treating her empirically for strep. Plan: penicillin V (VEETID) 500 MG tablet Return in about 10 days (around 08/14/2024) for recheck if symptoms fail to resolve by then, in the office. Subjective Tate is a 29 year old, presenting for the following health issues: Hospital F/U 08/04/2024 10:41 AM Additional Questions Roomed by Dari Accompanied by self HPI ED/UC Followup: Facility: [facility] Date of visit: 07/22/2024 Reason for visit: Sore throat Current Status: Still having really bad throat pain Objective Physical Exam (unfortunately unable to visualize the pharynx enough to help with any decision making) GENERAL: alert and no distress EYES: Eyes [...] Video-Visit Details Type of service: Video Visit Total video time: 12 minutes. Originating Location (pt. Location): Home Distant Location (provider location): On-site Platform used for Video Visit: Transfer To 12 minutes spent by me on the date of the encounter doing chart review, patient visit, and documentation (unfortunately the [facility] record is not available on Care Everywhere) Signed Electronically by: Volodymyr Cabral MD If patient has telephone visit, have they been educated on video visit as preferred visit method and offered to change to video visit? yes Instructions Relayed to Patient by Virtual Roomer: Patient is active on [employer] Connect: Relayed following to patient: It looks like you are active on [employer] Connect, are you able to join the visit this way? If not, do you need us to send you a link now or would you like your provider to send a link via text or email when they are ready to initiate the visit? Patient Confirmed they will join visit via: Energy Reminded patient to ensure they were logged on to virtual visit by arrival time listed. Asked if patient has flexibility to initiate visit sooner than arrival time: patient stated yes, documented in appointment notes availability to initiate visit earlier than arrival time If pediatric virtual visit, ensured pediatric patient along with parent/guardian will be present for video visit. Patient offered the website [email or web address] and/or phone number to [employer] Help line: [phone] Answers submitted by the patient for this visit: Patient Health Questionnaire (Submitted on 08/04/2024) If you checked off any problems, how difficult have these problems made it for you to do your work,take care of things at home, or get along with other people?: Somewhat difficult PHQ9 TOTAL SCORE: 8 documented in this encounter Plan of Treatment Upcoming Encounters Date Type Department Care Team ([facility] st Contact Info) Description 08/19/2024 9:00 AM CDT Office Visit [address] [phone] Imani Bennett APRN NITROGLYCERIN SEPARATOR OPERATOR [address] [place] [address] documented as of this encounter Visit Diagnoses Diagnosis Acute tonsillitis, unspecified etiology- Primary documented in this encounter Additional Health Concerns Infection Onset Date Last Indicated Resolved Time ESBL 07/30/2022 07/30/2022 Assessment Noted Time PHQ-9 Depression Total Score: 8 08/05/19 25 10:36 AM ORTHO ASSISTANT documented as of this encounter Care Teams Wetlands Conservation Laborer Relationship Specialty Start Date End Date Uli Lee MD [address] [place] [address] [phone] PCP - General 11/19/05 Imani Bennett APRN NITROGLYCERIN SEPARATOR OPERATOR [address] [place] [address] [phone] Assigned PCP 05/25/23 documented as of this encounter
--- OUTSIDE RECORDS SUMMARY | 2024-08-15 13:51 | XMS_ITS | Encounter Summary ---
Author Organization [place] Address [address] [place] [address] Care Team Providers Care Unit Assembler Name Role Phone Uli Lee MD Primary Care Provider [phone] sSherrie RN Unavailable [phone] Uli Lee MD Unavailable [phone] Uli Lee MD Unavailable [phone] Keisha Mtz MD Unavailable [phone] Uli Lee MD Unavailable [phone] Imani Holman ENTOMOLOGY TEACHER Unavailable Mercedez Hodge MD Unavailable Uli Lee MD Unavailable [phone] Imani Holman ENTOMOLOGY TEACHER Unavailable Uli Lee MD Unavailable [phone] Imani Bennett APRN ENTOMOLOGY TEACHER Unavailable + Uli Lee MD Unavailable [phone] Imani Bennett APRN ENTOMOLOGY TEACHER Unavailable + Uli Lee MD Unavailable Uli Lee MD Unavailable [phone] Uli Lee MD Unavailable [phone] Imani Bennett APRN ENTOMOLOGY TEACHER Unavailable + Imani Bennett APRN ENTOMOLOGY TEACHER Unavailable + Reason for Visit * Reason Onset Date Comments Panel Management 11/20/2017 ACT Encounter Details Date Type Department Care Team (Late Contact Info) Description 11/20/[address] [phone] Uli Lee MD [address] [place] [address] Panel Management (ACT) Social History Tobacco [...] AM CDT Legal Sex Female 4:42 AM MEAT COUNTER CLERK Gender Identity Female 01/26/2020 10:31 AM CDT [...] Description 08/19/2024 9:00 AM CDT Office Visit [address] [phone] Imani Bennett, OSWALDO ENTOMOLOGY TEACHER [address] [place], [place] [address] documented as of this encounter Visit Diagnoses Not on filedocumented in this encounter Additional Health Concerns Infection Onset Date Last Indicated Resolved Time Rule Out COVID-19 04/10/2020 04/10/2020 05/01/2020 11:40 PM MEAT COUNTER CLERK Rule Out COVID-19 07/10/2021 07/10/2021 07/10/2021 9:43 AM MEAT COUNTER CLERK Influenza 07/10/2021 07/10/2021 07/17/2021 11:3 9 PM MEAT COUNTER CLERK Rule Out COVID-19 12/09/2021 12/09/2021 12/09/2021 6:55 PM CDT COVID-19 12/09/2021 12/09/2021 12/30/2021 11:4 1 PM CDT Rule Out COVID-19 07/30/2022 07/30/2022 07/31/2022 5:53 PM MEAT COUNTER CLERK ESBL 07/30/2022 07/30/2022 Rule Out COVID-19 12/31/2022 12/31/2022 12/31/2022 7:30 AM CDT Rule Out C-difficile 02/28/2024 03/04/2024 024 11:39 PM CDT Assessment Noted Time PHQ-9 Depression Total Score: 18 06 018 7:11 AM CDT documented as of this encounter Care Teams Unit Assembler Relationship Specialty Start Date End Date Uli Lee MD [address] [place] [address] [phone] PCP - General 11/19/05 Uli Lee MD [address] [place] [address] [phone] PCP - Assigned PCP 08/18/17 08/05/18 Sherrie Chou RN [facility]olescent Psychiatrist Primary Care - CC 05/05/1805/06/18 Uli Lee MD [address] [place] [address] 94855 Assigned PCP 08/18/17 07/04/19 Keisha Mtz MD [address] [phone] Assigned PCP 07/05/19 03/12/20 Uli Lee MD [address] [place] [address] Assigned PCP 03/13/20 01/28/21 Imani Holman, ENTOMOLOGY TEACHER [address] [place] [address] Assigned PCP 01/29/21 06/10/21 Mercedez Hodge MD [address] [place], [place] [address] [address] Assigned Neuroscience Provider 05/14/21 11/02/22 Uli Lee MD [address] [place] [address] 57522 Assigned PCP 06/11/21 10/14/21 Imani Holman, ENTOMOLOGY TEACHER [address] [place] [address] Assigned PCP 10/15/21 04/20/22 Uli Lee MD [address] [place] [address] 49258 Assigned PCP 04/21/22 08/24/22 Imani Bennett APRN ENTOMOLOGY TEACHER [address] [place] [address] 56244 Assigned PCP 08/25/22 09/14/22 Uli Lee MD [address] [place] [address] 79043 Assigned PCP 09/15/22 10/05/22 Imani Bennett APRN ENTOMOLOGY TEACHER [address] [place] [address] 93256 Assigned PCP 10/06/22 01/18/23 Uli Lee MD [address] [place] [address] 19323 Assigned PCP 01/19/23 05/24/23 Uli Lee MD [address] [place] [address] 29455 Assigned Pain Medication Provider 02/02/23 02/22/23 Uli Lee MD [address] [place] [address]1827 Assigned Pain Medication Provider 03/16/23 05/31/23 Imani Bennett APRN ENTOMOLOGY TEACHER [address] [place] [address] 05321 Assigned Pain Medication Provider 06/01/23 06/26/23 Imani Bennett APRN ENTOMOLOGY TEACHER [facility] [place] [address] Assigned PCP 05/25/23 documented as of this encounter
--- OUTSIDE RECORDS SUMMARY | 2024-08-15 13:51 | XMS_ITS | Encounter Summary ---
Author Organization [place] Address [address] [place] [address] Care Team Providers Care Linseed Oil Refiner Name Role Phone Uli Lee MD Primary Care Provider [phone] Keisha Mtz MD Unavailable [phone] Uli Lee MD Unavailable [phone] Imani Holman APPRENTICE PAINTER HAND Unavailable Mercedez Hodge MD Unavailable Uli Lee MD Unavailable +[phone] Imani Holman APPRENTICE PAINTER HAND Unavailable [phone] Uli Lee MD Unavailable +[phone] Imani Bennett APRN APPRENTICE PAINTER HAND Unavailable + Uli Lee MD Unavailable +[phone] Imani Bennett APRN APPRENTICE PAINTER HAND Unavailable + Uli Lee MD Unavailable [phone] Uli Lee MD Unavailable +[phone] Uli Lee MD Unavailable +[phone] Imani Bennett APRN APPRENTICE PAINTER HAND Unavailable + Imani Bennett APRN APPRENTICE PAINTER HAND Unavailable + Reason for Visit * Reason Onset Date Comments MyChart Communication 01/24/2020 Encounter Details Date Type Department Care Team (Late Contact Info) Description 01/24/2020 MyC Medical Advice [address] [phone] Uli Lee MD [address] [place] [address] [phone] MyChart Communication Social History Tobacco Use Types [...] AM CDT Legal Sex Female 4:42 AM HERITAGE CONSULTANT Gender Identity Female 01/26/2020 10:31 AM [...] - 7138 mIU/ml 6 weeks: 158 - 58358 mIU/ml Mychart message sent .allyson documented in this encounter Plan of Treatment Upcoming Encounters Date Type Department Care Team (Late Contact Info) Description 08/19/2024 9:00 AM CDT Office Visit [address] [phone] Imani Bennett APRN APPRENTICE PAINTER HAND [address] [place] [address] [phone] documented as of this encounter Visit Diagnoses Not on filedocumented in this encounter Additional Health Concerns Infection Onset Date Last Indicated Resolved Time Rule Out COVID-19 04/10/2020 04/10/2020 05/01/2020 11:40 PM HERITAGE CONSULTANT Rule Out COVID-19 07/10/2021 07/10/2021 07/10/2021 9:43 AM HERITAGE CONSULTANT Influenza 07/10/2021 07/10/2021 07/17/2021 11:3 9 PM HERITAGE CONSULTANT Rule Out COVID-19 12/09/2021 12/09/2021 12/09/2021 6:55 PM CDT COVID-19 12/09/2021 12/09/2021 12/30/2021 11:4 1 PM CDT Rule Out COVID-19 07/30/2022 07/30/2022 07/31/2022 5:53 PM HERITAGE CONSULTANT ESBL 07/30/2022 07/30/2022 Rule Out COVID-19 12/31/2022 12/31/2022 12/31/2022 7:30 AM CDT Rule Out C-difficile 02/28/2024 03/04/2024 024 11:39 PM CDT Assessment Noted Time PHQ-9 Depression Total Score: 5 04/22/20 19 4:30 PM HERITAGE CONSULTANT documented as of this encounter Care Teams Linseed Oil Refiner Relationship Specialty Start Date End Date Uli Lee MD [address] [place] [address] [phone] PCP - General 11/19/05 Keisha Mtz MD [address] [phone] Assigned PCP 07/05/19 03/12/20 Uli Lee MD [address] [place] [address] 83021 Assigned PCP 03/13/20 01/28/21 Imani Holman, APPRENTICE PAINTER HAND [address] [place] [address] 30721 Assigned PCP 01/29/21 06/10/21 Mercedez Hodge MD [address] [place], [place] [address], [place] [address] Assigned Neuroscience Provider 05/14/21 11/02/22 Uli Lee MD [address] [place] [address] 11594 Assigned PCP 06/11/21 10/14/21 Imani Holman, APPRENTICE PAINTER HAND [address] [place] [address] 54875 Assigned PCP 10/15/21 04/20/22 Uli Lee MD [address] [place] [address] 23626 Assigned PCP 04/21/22 08/24/22 Imani Bennett APRN APPRENTICE PAINTER HAND [address] [place] [address] 96436 Assigned PCP 08/25/22 09/14/22 Uli Lee MD [address] [place] [address] 35778 Assigned PCP 09/15/22 10/05/22 Imani Bennett APRN APPRENTICE PAINTER HAND [address] [place] [address] 41908 Assigned PCP 10/06/22 01/18/23 Uli Lee MD [address] [place] [address] 05988 Assigned PCP 01/19/23 05/24/23 Uli Lee MD [address] [place] [address]25 Assigned Pain Medication Provider 02/02/23 02/22/23 Uli Lee MD [address] [place] [address] 38689 Assigned Pain Medication Provider 03/16/23 05/31/23 Imani Bennett APRN APPRENTICE PAINTER HAND [address] [place] [address] 41010 Assigned Pain Medication Provider 06/01/23 06/26/23 Imani Bennett APRN APPRENTICE PAINTER HAND [address] [place] [address] 43003 Assigned PCP 05/25/23 documented as of this encounter
--- OUTSIDE RECORDS SUMMARY | 2024-08-15 13:51 | XMS_ITS | Encounter Summary ---
Author Organization [place] Address [facility] [place] [address] Care Team Providers Care Patient Support Representative Name Role Phone Uli Lee MD Primary Care Provider [phone] Uli Lee MD Unavailable [phone] Imani Holman METEOROLOGY FACULTY MEMBER Unavailable Mercedez Hodge MD Unavailable [phone] Uli Lee MD Unavailable [phone] Imani Holman METEOROLOGY FACULTY MEMBER Unavailable [phone] Uli Lee MD Unavailable +[phone] Imani Bennett APRN METEOROLOGY FACULTY MEMBER Unavailable + Uli Lee MD Unavailable [phone] Imani Bennett APRN METEOROLOGY FACULTY MEMBER Unavailable + Uli Lee MD Unavailable [phone] Uli Lee MD Unavailable [phone] Uli Lee MD Unavailable [phone] Imani Bennett APRN METEOROLOGY FACULTY MEMBER Unavailable + Imani Bennett APRN METEOROLOGY FACULTY MEMBER Unavailable + Encounter Details Date Type Department Care Team ([facility] Contact Info) Description 10/17/2020 MyC Medical Advice [address] [phone] Radha Khan, EDI PROGRAMMER ANALYST Social History Tobacco Use Types Packs/Day Years [...] AM CDT Legal Sex Female 4:42 AM SYSTEMS MANAGEMENT CONSULTANT Gender Identity Female 01/26/2020 10:31 AM [...] Upcoming Encounters Date Type Department Care Team ([facility] Contact Info) Description 08/19/2024 9:00 AM CDT Office Visit [address] [phone] Imani Bennett, PANCAKE PROFESSIONAL [address] [phone] documented as of this encounter Visit Diagnoses Not on filedocumented in this encounter Additional Health Concerns Infection Onset Date Last Indicated Resolved Time Rule Out COVID-19 07/10/2021 07/10/2021 07/10/2021 9:43 AM SYSTEMS MANAGEMENT CONSULTANT Influenza 07/10/2021 07/10/2021 07/17/2021 11:3 9 PM SYSTEMS MANAGEMENT CONSULTANT Rule Out COVID-19 12/09/2021 12/09/2021 12/09/2021 6:55 PM CDT COVID-19 12/09/2021 12/09/2021 12/30/2021 11:4 1 PM CDT Rule Out COVID-19 07/30/2022 07/30/2022 07/31/2022 5:53 PM SYSTEMS MANAGEMENT CONSULTANT ESBL 07/30/2022 07/30/2022 Rule Out COVID-19 12/31/2022 12/31/2022 12/31/2022 7:30 AM CDT Rule Out C-difficile 02/28/2024 03/04/2024 024 11:39 PM CDT Assessment Noted Time PHQ-9 Depression Total Score: 10 021 10:57 AM CDT documented as of this encounter Care Teams Patient Support Representative Relationship Specialty Start Date End Date Uli Lee MD [address] [place] [address]609 PCP - General 11/19/05 Uli Lee MD [address] [place] [address] 64801 Assigned PCP 03/13/20 01/28/21 Imani Holman METEOROLOGY FACULTY MEMBER [address] [place] [address] 48576 Assigned PCP 01/29/21 06/10/21 Mercedez Hodge MD [address] [place] [address] [id number] [place] [address] Assigned Neuroscience Provider 05/14/21 11/02/22 Uli Lee MD [address] [place] [address] 42199 Assigned PCP 06/11/21 10/14/21 Imani Holman CNP [address] [place] [address] 04447 Assigned PCP 10/15/21 04/20/22 Uli Lee MD [address] [place] [address], [place] [address] Assigned PCP 04/21/22 08/24/22 Imani Bennett APRN METEOROLOGY FACULTY MEMBER [address] [place] [address] 74099 Assigned PCP 08/25/22 09/14/22 Uli Lee MD [address] [place] [address] 79500 Assigned PCP 09/15/22 10/05/22 Imani Bennett APRN METEOROLOGY FACULTY MEMBER [address] [place] [address] 58628 Assigned PCP 10/06/22 01/18/23 Uli Lee MD [address] [place] [address] 76164 Assigned PCP 01/19/23 05/24/23 Uli Lee MD [address] [place] [address] 86173 Assigned Pain Medication Provider 02/02/23 02/22/23 Uli Lee MD [address] [place] [address] 53879 Assigned Pain Medication Provider 03/16/23 05/31/23 Imani Bennett APRN METEOROLOGY FACULTY MEMBER [address] [place] [address] Assigned Pain Medication Provider 06/01/23 06/26/23 Imani Bennett APRN METEOROLOGY FACULTY MEMBER [address] [place] [address] Assigned PCP 05/25/23 documented as of this encounter
--- NOTE | 2024-08-15 13:56 | ED.GENADULT ---
HPI - General Adult General Chief complaint: Back Injury/Pain Stated complaint: Back pain Time Seen by Provider: 08/15/24 13:56 History of Present Illness HPI narrative: comes to ed with concerns of pain and injury to the mid to left side of her back. slipped on the steps when a little dog got in her way. she fell directly onto her back. the stairs where thinly carpeted . admits to having chronic back pain. able to void and stool without problems. taking Tylenol and ibuprofen and using heat and cold packs. 29-year-old young woman presenting to the emergency department with concern of back pain. Does note a history of chronic pelvic pain that has progressed to back and neck pain following last of 3 pregnancies when had a . Currently seeing the [facility] pain clinic. Seems to be struggling with actual diagnosis of what this pain is. Slipped on some steps yesterday and landed right on her midback. Feels tension and pain up the left back into her neck. Is hurting to breathe as well. Trying to treat with her usual Tylenol, ibuprofen, heat and cold packs. Related Data Home Medications ?Medication ?Instructions ?Recorded ?Confirmed albuterol sulfate 90 mcg/actuation 2 puff inhalation Q4H PRN dyspnea 04/11/24 07/22/24 aerosol inhaler (Ventolin HFA) sumatriptan succinate 25 mg tablet mg PO 04/11/24 07/22/24 Allergies Allergy/AdvReac Type Severity Reaction Status Date / Time avocado Allergy Verified 08/15/24 14:05 doxycycline Allergy Verified 08/15/24 14:05 hydrocodone Allergy Verified 08/15/24 14:05 nuts Allergy Uncoded 07/22/24 16:41 Review of Systems Status of ROS: Reports: 6 or more systems reviewed and unremarkable except as noted in History and below PFSH PFS Social History Smoking Status: Former smoker Do you use any of these nicotine containing products: E-Cigarettes Second hand tobacco smoke exposure: No How often do you have a drink containing alcohol: never How often do you have six or more drinks on one occasion: Never AUDIT-C Alcohol total score: 0 Non-prescribed substance use: denies use service: No Exam Narrative: Exam Narrative: Very pleasant. NAD but appears uncomfortable. Lying somewhat curled up on her right side initially. Transitions slowly but without severe pain. No swelling or erythema noted. No discrete midline neck or back pain. Neck is supple. Pain is however present in the low thoracic spine a little left of midline. Oppositional compression testing does not elicit significant pain. Lungs appear to be clear. Heart in regular rate and rhythm. Const: Vital Signs, click to edit/add: Vital Signs - 24 hr 08/15/24 14:06 Temperature 99.3 F Pulse Rate [Pulse Oximeter] 81 Respiratory Rate 20 Blood Pressure [Le ft Upper Arm] 128/78 Pulse Oximetry 100 Oxygen Delivery Me thod Room Air Documenting provider has reviewed patient's vital signs: yes Course Vital Signs Vital signs: Initial Vital Signs Temperature 99.3 F 08/15/24 14:06 Temperature Source Temporal Artery Scan 08/15/24 14:06 Pulse Rate 81 08/15/24 14:06 Pulse Rhythm Regular 08/15/24 14:06 Respiratory Rate 20 08/15/24 14:06 Blood Pressure 128/78 08/15/24 14:06 Blood Pressure Mean 94 08/15/24 14:06 Blood Pressure Position Right Lateral 08/15/24 14:06 Pulse Oximetry 100 08/15/24 14:06 Oxygen Delivery Method Room Air 08/15/24 14:06 Vital Signs Temperature 99.3 F 08/15/24 14:06 Pulse Rate 81 08/15/24 14:06 Respiratory Rate 20 08/15/24 14:06 Blood Pressure 128/78 08/15/24 14:06 Pulse Oximetry 100 08/15/24 14:06 Oxygen Delivery Method Room Air 08/15/24 14:06 Temperature 99.3 F 08/15/24 14:06 Pulse Rate 81 08/15/24 14:06 Respiratory Rate 20 08/15/24 14:06 Blood Pressure 128/78 08/15/24 14:06 Pulse Oximetry 100 08/15/24 14:06 Oxygen Delivery Method Room Air 08/15/24 14:06 Medications Administered Medications: Discontinued Medications Generic Name Dose Route Start Last Admin Trade Name Freq PRN Reason Stop Dose Admin Ketorolac Tromethamine 30 mg 08/15/24 14:36 08/15/24 14:46 Ketorolac 30 Mg/Ml Inj IM 08/15/24 14:37 30 mg ONCE ONE Administration Medical Decision Making MDM Narrative Medical decision making narrative: Complicating is some chronic nature of this pain. There is however potential for significant acute injury. Only symptoms though remaining appear to be in the back. Certainly could have a rib fracture or transverse process fracture maybe even a compression fracture, hematoma. With history I think warrants CT imaging. Thoracic CT image was requested. After discussion of option was also given injection of ketorolac. Thoracic CT imaging reviewed by me did not appreciate any acute bony abnormality. Radiology over-read below INDICATION: Left-sided mid back pain after fall. TECHNIQUE: CT of the thoracic spine without contrast. Coronal and sagittal reformats are included. COMPARISON: None. FINDINGS: Fractures and other acute findings: None. Hardware: None. Spinal alignment: Within normal limits. Significant thoracic spondylosis: Within normal limits. Paraspinal soft tissues and imaged lungs: Within normal limits. IMPRESSION: 1. No acute fracture or traumatic malalignment of the thoracic spine. Please note that all CT scans at this facility use dose modulation, iterative reconstruction, and/or weight-based dosing when appropriate to reduce radiation dose to as low as reasonably achievable. Dictated by Fortino Worrell MD @ 08/15/2024 3:12:46 PM Somewhat improved during time in the emergency department. I think she accepts a certain level of pain at this point. Discussed options though of temporary options for management of more intense pain. See patient discharge plan for further discussion Sounds as though you might benefit from multimodal approach to your chronic pain. We were discussing biofeedback and acupuncture. In the short term though can continue with your warm packs, cold packs, ibuprofen, acetaminophen. Am prescribing some Percocet from [facility]. Keep in mind each tablet of Percocet contains 325 mg of acetaminophen. See handout on some stretches for the upper back that might be beneficial. Medical Records Medical records reviewed: Yes I reviewed the patient's medical records Discharge Plan Discharge Clinical Impression: Thoracic back pain Patient Disposition: Home, Self-Care Condition: Stable Additional Instructions: Sounds as though you might benefit from multimodal approach to your chronic pain. We were discussing biofeedback and acupuncture. In the short term though can continue with your warm packs, cold packs, ibuprofen, acetaminophen. Am prescribing some Percocet from [facility]. Keep in mind each tablet of Percocet contains 325 mg of acetaminophen. See handout on some stretches for the upper back that might be beneficial. Prescriptions: No Action sumatriptan succinate 25 mg tablet PO albuterol sulfate [Ventolin HFA] 90 mcg/actuation HFA aerosol inhaler 2 puff inhalation Q4H PRN (Reason: dyspnea) Follow Up/Referrals: Provider,Not a Local [Non-Staff] - Stand Alone Forms: [employer] Info Instructions
[2024-08-15 14:06] VITALS: BP 128/78; PULSE 81; RESP 20; TEMP 37.4; O2SAT 100; BMI 29.8
--- NOTE | 2024-08-15 14:36 | CRLHL7_ITS ---
For Patients: As a result of the Century Cures Act, medical imaging exams and procedure reports are released immediately into your electronic medical record. You may view this report before your referring provider. If you have questions, please contact your health care provider. INDICATION: Left-sided mid back pain after fall. TECHNIQUE: CT of the thoracic spine without contrast. Coronal and sagittal reformats are included. COMPARISON: None. FINDINGS: Fractures and other acute findings: None. Hardware: None. Spinal alignment: Within normal limits. Significant thoracic spondylosis: Within normal limits. Paraspinal soft tissues and imaged lungs: Within normal limits. IMPRESSION: 1. No acute fracture or traumatic malalignment of the thoracic spine. Please note that all CT scans at this facility use dose modulation, iterative reconstruction, and/or weight-based dosing when appropriate to reduce radiation dose to as low as reasonably achievable. Dictated by Fortino Worrell MD @ 08/15/2024 3:12:46 PM (Electronically Signed)
[2024-08-15] MEDS: KETOROLAC 30 MG/ML inj IM (14:46)
--- OUTSIDE RECORDS SUMMARY | 2024-08-15 15:14 | XMS_ITS | CCD ---
Author Name Interface, [id number] lity Address [address] [place] [address] [address] [address] Organization [facility] Address [address] [facility] [address] [place] [address] Care Team Providers Care Kiln Packer Name Role Phone Nate Lopez Unavailable Unavailable Jeffery Hernandez Unavailable Unavailable Reason for Visit LAB 15 MIN Medications Date Name Route Dose Frequency Instructions Start Date End Date Status Acetaminophen Oral PRN active Gabapentin Oral TID a ctive Rivaroxaban Oral daily 21 days active Acetaminophen-Caff- Butalbital Oral Tablet 325 mg-40 mg-50 mg PRN active Escitalopram Oral daily active Albuterol HFA Inhaler 90 mcg/actuation PRN active Social History Date Name Value Sex Female
--- OUTSIDE RECORDS SUMMARY | 2024-08-15 15:14 | XMS_ITS | CCD ---
Author Name Interface, [id number] lity Address [address] [place] [address] [address] [address] Organization [facility] Address [address] [facility] [address] [place] [address] Care Team Providers Care Shadowgraph Operator Name Role Phone Nate Lopez Unavailable Unavailable [...]
--- OUTSIDE RECORDS SUMMARY | 2024-08-15 15:14 | XMS_ITS | Clinical Summary ---
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
--- OUTSIDE RECORDS SUMMARY | 2024-08-15 15:14 | XMS_ITS | Encounter Summary ---
Author Organization [facility] Address [address] [place] [address] Care Team Providers Care Insurance Sales Producer Name Role Phone Uli Lee MD Primary Care Provider [phone] Mercedez Hodge MD Unavailable [phone] Uli Lee MD Unavailable [phone] Imani Holman SUPERVISORY CBP OFFICER Unavailable Uli Lee MD Unavailable [phone] Imani Bennett APRN SUPERVISORY CBP OFFICER Unavailable + Uli Lee MD Unavailable [phone] Imani Bennett APRN SUPERVISORY CBP OFFICER Unavailable + Uli Lee MD Unavailable [phone] Uli Lee MD Unavailable [phone] Uli Lee MD Unavailable [phone] Imani Bennett APRN SUPERVISORY CBP OFFICER Unavailable + Imani Bennett APRN SUPERVISORY CBP OFFICER Unavailable + Encounter Details Date Type Department [...] AM CDT Legal Sex Female 4:42 AM NON DESTRUCTIVE EVALUATION TECHNICIAN Gender Identity Female 01/26/2020 10:31 AM CDT Sexual Orientation Straight 01/26/2020 10 :31 AM CDT COVID-19 Exposure Response Date Recorded In the last month, have you been in contact with someone who was confirmed or suspected to have Coronavirus / COVID-19? No / Unsure 07/10/2021 8:37 AM NON DESTRUCTIVE EVALUATION TECHNICIAN documented as of this encounter Plan of Treatment Upcoming Encounters Date Type Department Care Team (Late st Contact Info) Description 08/19/2024 9:00 AM CDT Office Visit [address] [phone] Imani Bennett, OSWALDO [address] [id number] documented as of this encounter Visit Diagnoses Not on filedocumented in this encounter Additional Health Concerns Infection Onset Date Last Indicated Resolved Time Rule Out COVID-19 07/10/2021 07/10/2021 07/10/2021 9:43 AM NON DESTRUCTIVE EVALUATION TECHNICIAN Influenza 07/10/2021 07/10/2021 07/17/2021 11:3 9 PM NON DESTRUCTIVE EVALUATION TECHNICIAN Rule Out COVID-19 12/09/2021 12/09/2021 12/09/2021 6:55 PM CDT COVID-19 12/09/2021 12/09/2021 12/30/2021 11:4 1 PM CDT Rule Out COVID-19 07/30/2022 07/30/2022 07/31/2022 5:53 PM NON DESTRUCTIVE EVALUATION TECHNICIAN ESBL 07/30/2022 07/30/2022 Rule Out COVID-19 12/31/2022 12/31/2022 12/31/2022 7:30 AM CDT Rule Out C-difficile 02/28/2024 03/04/2024 024 11:39 PM CDT Assessment Noted Time PHQ-9 Depression Total Score: 11 021 7:03 AM NON DESTRUCTIVE EVALUATION TECHNICIAN documented as of this encounter Care Teams Insurance Sales Producer Relationship Specialty Start Date End Date Uli Lee MD [address] [place] [phone] PCP - General 11/19/05 Mercedez Hodge MD [address] [place] [id number] [address] Assigned Neuroscience Provider 05/14/21 11/02/22 Uli Lee MD [address] [place] [address] Assigned PCP 06/11/21 10/14/21 Imani Holman, SUPERVISORY CBP OFFICER [address] [place] [address] Assigned PCP 10/15/21 04/20/22 Uli Lee MD [address] [place] [address] Assigned PCP 04/21/22 08/24/22 Imani Bennett APRN SUPERVISORY CBP OFFICER [address] [place] [phone] Assigned PCP 08/25/22 09/14/22 Uli Lee MD [address] [place] [address], [place] [address] Assigned PCP 09/15/22 10/05/22 Imani Bennett APRN SUPERVISORY CBP OFFICER [address] [place] [address], [place] [address] Assigned PCP 10/06/22 01/18/23 Uli Lee MD [address] [place] [address], [place] [address] Assigned PCP 01/19/23 05/24/23 Uli Lee MD [address] [place] [address], [place] [address] Assigned Pain Medication Provider 02/02/23 02/22/23 Uli Lee MD [address] [place] [address], [place] [address] Assigned Pain Medication Provider 03/16/23 05/31/23 Imani Bennett APRN SUPERVISORY CBP OFFICER [address] [place] [address], [place] [address] Assigned Pain Medication Provider 06/01/23 06/26/23 Imani Bennett APRN SUPERVISORY CBP OFFICER [address] [place] [address], [place] [address] Assigned PCP 05/25/23 documented as of this encounter
--- OUTSIDE RECORDS SUMMARY | 2024-08-15 15:14 | XMS_ITS | Encounter Summary ---
Author Organization [facility] Address [address] [place] [address] Care Team Providers Care Family Consumer Scientist Name Role Phone Uli Lee MD Primary Care Provider [phone] Cherie Tabor RN Unavailable sSherrie RN Unavailable [phone] Uli Lee MD Unavailable [phone] Uli Lee MD Unavailable [phone] Keisha Mtz MD Unavailable Uli Lee MD Unavailable [phone] Imani Holman AQUATIC PERFORMER Unavailable Mercedez Hodge MD Unavailable Uli Lee MD Unavailable [phone] Imani Holman AQUATIC PERFORMER Unavailable Uli Lee MD Unavailable [phone] Imani Bennett APRN AQUATIC PERFORMER Unavailable + Uli Lee MD Unavailable [phone] Imani Bennett APRN AQUATIC PERFORMER Unavailable + Uli Lee MD Unavailable Uli Lee MD Unavailable Uli Lee MD Unavailable Imani Bennett PROOF TESTER AQUATIC PERFORMER Unavailable + Imani Bennett PROOF TESTER AQUATIC PERFORMER Unavailable + Encounter Details Date Type Department Care Team (Late st Contact Info) Description 09/19/[address] [phone] Uli Lee MD [address] [place] [address] [phone] ER REPORT (Primary Dx) Social History Tobacco [...] AM CDT Legal Sex Female 4:42 AM GREASE CUP FILLER Gender Identity Female 01/26/2020 10:31 AM CDT Sexual Orientation Straight 01/26/2020 10 :31 AM CDT documented as of this encounter Plan of Treatment Upcoming Encounters Date Type Department Care Team (Late st Contact Info) Description 08/19/2024 9:00 AM CDT Office Visit [address] [phone] Imani Bennett APRN AQUATIC PERFORMER [address] [place] [address] [phone] documented as of this encounter Visit Diagnoses Diagnosis ER REPORT- Primary documented in this encounter Additional Health Concerns Infection Onset Date Last Indicated Resolved Time Rule Out COVID-19 04/10/2020 04/10/2020 05/01/2020 11:40 PM GREASE CUP FILLER Rule Out COVID-19 07/10/2021 07/10/2021 07/10/2021 9:43 AM GREASE CUP FILLER Influenza 07/10/2021 07/10/2021 07/17/2021 11:3 9 PM GREASE CUP FILLER Rule Out COVID-19 12/09/2021 12/09/2021 12/09/2021 6:55 PM CDT COVID-19 12/09/2021 12/09/2021 12/30/2021 11:4 1 PM CDT Rule Out COVID-19 07/30/2022 07/30/2022 07/31/2022 5:53 PM GREASE CUP FILLER ESBL 07/30/2022 07/30/2022 Rule Out COVID-19 12/31/2022 12/31/2022 12/31/2022 7:30 AM CDT Rule Out C-difficile 02/28/2024 03/04/2024 024 11:39 PM CDT documented as of this encounter Care Teams Family Consumer Scientist Relationship Specialty Start Date End Date Uli Lee MD [address] [place] [phone] PCP - General 11/19/05 Uli Lee MD [address] [place] [phone] PCP - Assigned PCP 08/18/17 08/05/18 Cherie Tabor RN Lead Furnace Converter Primary Care - CC 08/22/17 Sherrie Chou RN Clinic Furnace Converter Primary Care - CC 05/05/1805/06/18 Uli Lee MD [address] [place] [address] [phone] Assigned PCP 08/18/17 07/04/19 Keisha Mtz MD [address] [phone] Assigned PCP 07/05/19 03/12/20 Uli Lee MD [address] [place] [address] Assigned PCP 03/13/20 01/28/21 Imani Holman, AQUATIC PERFORMER [address] [place] [address] Assigned PCP 01/29/21 06/10/21 Mercedez Hodge MD [address] [place] [address] [address] Assigned Neuroscience Provider 05/14/21 11/02/22 Uli Lee MD [address] [place] [address] Assigned PCP 06/11/21 10/14/21 Imani Holman, AQUATIC PERFORMER [address] [place] [address] Assigned PCP 10/15/21 04/20/22 Uli Lee MD [address] [place] [address] Assigned PCP 04/21/22 08/24/22 Imani Bennett APRN AQUATIC PERFORMER [address] [place] [address] Assigned PCP 08/25/22 09/14/22 Uli Lee MD [address] [place] [address] Assigned PCP 09/15/22 10/05/22 Imani Bennett APRN AQUATIC PERFORMER [address] [place] [address] Assigned PCP 10/06/22 01/18/23 Uli Lee MD [address] [place] [address] Assigned PCP 01/19/23 05/24/23 Uli Lee MD [address] [place] [address] Assigned Pain Medication Provider 02/02/23 02/22/23 Uli Lee MD [address] [place] [address] Assigned Pain Medication Provider 03/16/23 05/31/23 Imani Bennett APRN AQUATIC PERFORMER [address] [place] [phone] Assigned Pain Medication Provider 06/01/23 06/26/23 Imani Bennett APRN AQUATIC PERFORMER [address] [place] [address] Assigned PCP 05/25/23 documented as of this encounter
--- OUTSIDE RECORDS SUMMARY | 2024-08-15 15:14 | XMS_ITS | Encounter Summary ---
Author Organization [place] Address [address] [place] [address] Care Team Providers Care Registered Dental Hygienist Name Role Phone Robbie Lee MD Primary Care Provider [phone] sSherrie RN Unavailable [phone] Robbie Lee MD Unavailable [phone] Robbie Lee MD Unavailable [phone] Keisha Mtz MD Unavailable [phone] Robbie Lee MD Unavailable [phone] Imani Holman BUSINESS LEADER Unavailable Mercedez Hodge MD Unavailable Robbie Lee MD Unavailable [phone] Imani Holman BUSINESS LEADER Unavailable Robbie Lee MD Unavailable [phone] Imani Bennett APRN BUSINESS LEADER Unavailable + Robbie Lee MD Unavailable [phone] Imani Bennett APRN BUSINESS LEADER Unavailable + Robbie Lee MD Unavailable Robbie Lee MD Unavailable [phone] Robbie Lee MD Unavailable [phone] Imani Bennett APRN BUSINESS LEADER Unavailable + Imani Bennett APRN BUSINESS LEADER Unavailable + Reason for Referral * Diagnostic Imaging Ultrasound - Closed Specialty Diagnoses / Procedures Referred By Contac t Referred To Contact Diagnoses related condition, antepartum Procedures [facility] Single Robbie Lee MD Phone: tel: fax: Referral ID Status Reason Start Date Expiration Date Visits Re quested Visits Authorized [id number] Closed 04/18/2018 04/18/2019 1 1 LOADER Encounter Details Date Type Department Care Team (Late Contact Info) Description 04/18/2018 Orders Only [facility] [place] [address] [facility] [place] [phone] [place] [address] [place] [address] [phone] related condition, antepartum (Primary Dx) Social History Tobacco Use Types Packs/Day Years Used Date Smoking Tobacco: Former Smokeless Tobacco: Never Comments:dad smokes outside of house Alcohol Use Standard Drinks/Week Comments No 0 (1 standard drink = 0.6 oz pur e alcohol) Comments Yes Sex and Gender Information Value Date Recorded Sex Assigned at Female 01/26/2020 10:31 AM CDT Legal Sex Female 4:42 AM ROCK LOADER Gender Identity Female 01/26/2020 10:31 AM CDT Sexual Orientation Straight 01/26/2020 10 :31 AM CDT documented as of this encounter Plan of Treatment Upcoming Encounters Date Type Department Care Team (Late st Contact Info) Description 08/19/2024 9:00 AM CDT Office Visit [address] [phone] Imani Bennett, FARM RANCHER BUSINESS LEADER [address] [place], [place] [phone] documented as of this encounter Results * MFM BPP Single (04/18/2018 1:14 PM ROCK LOADER) Anatomical Region Laterality Modality Ultrasound 04/18/2018 12:5 2 PM ROCK LOADER Impressions 04/18/2018 1:16 PM ROCK LOADER IMPRESSION ----- Normal NICOL. BPP is reassuring. Narrative 04/18/2018 1:16 PM ROCK LOADER BPP ----- Pat. Name: ANGIE HALE Study Date: 04/18/2018 12:52pm Pat. NO: [id number] Referring MD: ROBBIE LEE Site: [facility] Call Circuit Worker: Janeen Negro RDMS : 1995 Age: 23 [...] Pat. Name:Mo HALE Date:04/18/2018 12:52pm Pat. NO: [id number] MD:ROBBIE LEE [facility]Janeen Negro RDMS :1995Age:23 ----- INDICATION ----- Decreased [...] ultrasound studies as clinically indicated. Return to [facility] for continued care. Thank-you for the opportunity to participate in the care of this patient.If you have questions regarding today's evaluation or if we can be offurther service, please contact the [facility]. anomalies may be present but not detected IMPRESSION ----- Normal NICOL. BPP is reassuring. us Robbie Lee MD [facility] US ORDERABLES Edited Result - Final documented in this encounter Visit Diagnoses Diagnosis related condition, antepartum- Primary related condition, antepartum documented in this encounter Additional Health Concerns Infection Onset Date Last Indicated Resolved Time Rule Out COVID-19 04/10/2020 04/10/2020 05/01/2020 11:40 PM ROCK LOADER Rule Out COVID-19 07/10/2021 07/10/2021 07/10/2021 9:43 AM ROCK LOADER Influenza 07/10/2021 07/10/2021 07/17/2021 11:3 9 PM ROCK LOADER Rule Out COVID-19 12/09/2021 12/09/2021 12/09/2021 6:55 PM CDT COVID-19 12/09/2021 12/09/2021 12/30/2021 11:4 1 PM CDT Rule Out COVID-19 07/30/2022 07/30/2022 07/31/2022 5:53 PM ROCK LOADER ESBL 07/30/2022 07/30/2022 Rule Out COVID-19 12/31/2022 12/31/2022 12/31/2022 7:30 AM CDT Rule Out C-difficile 02/28/2024 03/04/2024 024 11:39 PM CDT Assessment Noted Time PHQ-9 Depression Total Score: 14 018 7:16 AM CDT documented as of this encounter Care Teams Registered Dental Hygienist Relationship Specialty Start Date End Date Robbie Lee MD [address] [place] [address] PCP - General 11/19/05 Robbie Lee MD [address] [place] [address] 35844 PCP - Assigned PCP 08/18/17 08/05/18 sSherrie RN Clinic Gem Technician Primary Care - CC 05/05/1805/06/18 Robbie Lee MD [address] [place] [address] 38718 Assigned PCP 08/18/17 07/04/19 Keisha Mtz MD [address] [phone] Assigned PCP 07/05/19 03/12/20 Robbie Lee MD [address] [place] [address] 52766 Assigned PCP 03/13/20 01/28/21 Imani Homlan, BUSINESS LEADER [address] [place] [address] 40463 Assigned PCP 01/29/21 06/10/21 Mercedez Hodge MD [address] [facility] [place] [address] Assigned Neuroscience Provider 05/14/21 11/02/22 Robbie Lee MD [address] [place] [address], [place] 027602 Assigned PCP 06/11/21 10/14/21 Imani Holman, BUSINESS LEADER [address] [place] [address], [place] 561972 Assigned PCP 10/15/21 04/20/22 Robbie Lee MD [address] [place] [address], [place] 325652 Assigned PCP 04/21/22 08/24/22 Imani Bennett APRN BUSINESS LEADER [address] [place] [address], [place] [phone] Assigned PCP 08/25/22 09/14/22 Robbie Lee MD [address] [place] [address], [place] 685252 Assigned PCP 09/15/22 10/05/22 Imani Bennett APRN BUSINESS LEADER [address] [place] [address], [place] [address] Assigned PCP 10/06/22 01/18/23 Robbie Lee MD [address] [place] [address], [place] [phone] Assigned PCP 01/19/23 05/24/23 Robbie Lee MD [address] [place] [address] [phone] Assigned Pain Medication Provider 02/02/23 02/22/23 Robbie Lee MD [address] [place] [address] [phone] Assigned Pain Medication Provider 03/16/23 05/31/23 Imani Bennett APRN BUSINESS LEADER [address] [place] [address] 75384 Assigned Pain Medication Provider 06/01/23 06/26/23 Imani Bennett APRN BUSINESS LEADER [address] [place] [address] 52266 Assigned PCP 05/25/23 documented as of this encounter
--- OUTSIDE RECORDS SUMMARY | 2024-08-15 15:15 | XMS_ITS | Referral Summary ---
Author Organization [facility] Address [address] [place] [address] Care Team Providers Care Hardwood Floor Installation Helper Name Role Phone Unavailable Primary Care Provider [...] on file Legal Sex Female 10:02 AM PUBLIC HEALTH NURSE Gender Identity Not on file Sexual Orientation [...] Plan of Treatment Not on file Insurance [facility] Address: [address] [phone]
--- OUTSIDE RECORDS SUMMARY | 2024-08-15 15:15 | XMS_ITS | Encounter Summary ---
Author Organization [place] Address [address] [place] [address] Care Team Providers Care Bus Transportation Manager Name Role Phone Uli Lee MD Primary Care Provider [phone] Keisha Mtz MD Unavailable [phone] Uli Lee MD Unavailable [phone] Imani Holman FORGEMAN HELPER Unavailable Mercedez Hodge MD Unavailable Uli Lee MD Unavailable [phone] Imani Holman FORGEMAN HELPER Unavailable [phone] Uli Lee MD Unavailable [phone] Imani Bennett APRN FORGEMAN HELPER Unavailable + Uli Lee MD Unavailable [phone] Imani Bennett APRN FORGEMAN HELPER Unavailable + Uli Lee MD Unavailable [phone] Uli Lee MD Unavailable [phone] Uli Lee MD Unavailable [phone] Imani Bennett APRN FORGEMAN HELPER Unavailable + Imani Bennett APRN FORGEMAN HELPER Unavailable + Reason for Visit * Reason Onset Date Comments MyChart Communication 01/24/2020 Encounter Details Date Type Department Care Team (Late Contact Info) Description 01/24/2020 MyC Medical Advice [address] [phone] Uli Lee MD [address] [place] [address] [phone] MyChart Communication Social History Tobacco Use Types [...] AM CDT Legal Sex Female 4:42 AM MEDICAL HEALTH RESEARCHER Gender Identity Female 01/26/2020 10:31 AM CDT [...] - 7138 mIU/ml 6 weeks: 158 - 32847 mIU/ml Mychart message sent .allyson documented in this encounter Plan of Treatment Upcoming Encounters Date Type Department Care Team (Late Contact Info) Description 08/19/2024 9:00 AM CDT Office Visit [address] [phone] Imani Bennett APRN FORGEMAN HELPER [address] [place] [address] [phone] documented as of this encounter Visit Diagnoses Not on filedocumented in this encounter Additional Health Concerns Infection Onset Date Last Indicated Resolved Time Rule Out COVID-19 04/10/2020 04/10/2020 05/01/2020 11:40 PM MEDICAL HEALTH RESEARCHER Rule Out COVID-19 07/10/2021 07/10/2021 07/10/2021 9:43 AM MEDICAL HEALTH RESEARCHER Influenza 07/10/2021 07/10/2021 07/17/2021 11:3 9 PM MEDICAL HEALTH RESEARCHER Rule Out COVID-19 12/09/2021 12/09/2021 12/09/2021 6:55 PM CDT COVID-19 12/09/2021 12/09/2021 12/30/2021 11:4 1 PM CDT Rule Out COVID-19 07/30/2022 07/30/2022 07/31/2022 5:53 PM MEDICAL HEALTH RESEARCHER ESBL 07/30/2022 07/30/2022 Rule Out COVID-19 12/31/2022 12/31/2022 12/31/2022 7:30 AM CDT Rule Out C-difficile 02/28/2024 03/04/2024 024 11:39 PM CDT Assessment Noted Time PHQ-9 Depression Total Score: 5 04/22/20 19 4:30 PM MEDICAL HEALTH RESEARCHER documented as of this encounter Care Teams Bus Transportation Manager Relationship Specialty Start Date End Date Uli Lee MD [address] [place] [address] [phone] PCP - General 11/19/05 Keisha Mtz MD [address] [phone] Assigned PCP 07/05/19 03/12/20 Uli Lee MD [address] [place] [address] Assigned PCP 03/13/20 01/28/21 Imani Holman, FORGEMAN HELPER [address] [place] [address]9915 Assigned PCP 01/29/21 06/10/21 Mercedez Hodge MD [address] [place] [address] [address] Assigned Neuroscience Provider 05/14/21 11/02/22 Uli Lee MD [address] [place] [address] 62519 Assigned PCP 06/11/21 10/14/21 Imani Holman, FORGEMAN HELPER [address] [place] [address] 844[address] Assigned PCP 10/15/21 04/20/22 Uli Lee MD [address] [place] [address] 33554 Assigned PCP 04/21/22 08/24/22 Imani Bennett APRN FORGEMAN HELPER [address] [place] [address] 61768 Assigned PCP 08/25/22 09/14/22 Uli Lee MD [address] [place] [address] 35181 Assigned PCP 09/15/22 10/05/22 Imani Bennett APRN FORGEMAN HELPER [address] [place] [address] 17907 Assigned PCP 10/06/22 01/18/23 Uli Lee MD [address] [place] [address] 98204 Assigned PCP 01/19/23 05/24/23 Uli Lee MD [address] [place] [address] 30350 Assigned Pain Medication Provider 02/02/23 02/22/23 Uli Lee MD [address] [place] [address] 56013 Assigned Pain Medication Provider 03/16/23 05/31/23 Imani Bennett APRN FORGEMAN HELPER [address] [place] [address] 46973 Assigned Pain Medication Provider 06/01/23 06/26/23 Imani Bennett APRN FORGEMAN HELPER [address] [place] [address] Assigned PCP 05/25/23 documented as of this encounter
--- OUTSIDE RECORDS SUMMARY | 2024-08-15 15:15 | XMS_ITS | Encounter Summary ---
Author Organization [place] Address [address] [place] [address] Care Team Providers Care Armed Security Guard Name Role Phone Uli Lee MD Primary Care Provider [phone] Cherie Tabor RN Unavailable [phone] sSherrie RN Unavailable Uli Lee MD Unavailable [phone] Uli Lee MD Unavailable [phone] Keisha Mtz MD Unavailable Uli Lee MD Unavailable [phone] Imani Holman ORACLE FINANCIALS DEVELOPER Unavailable Mercedez Hodge MD Unavailable Uli Lee MD Unavailable [phone] Imani Holman ORACLE FINANCIALS DEVELOPER Unavailable Uli Lee MD Unavailable [phone] Imani Bennett APRN ORACLE FINANCIALS DEVELOPER Unavailable + Uli Lee MD Unavailable [phone] Imani Bennett APRN ORACLE FINANCIALS DEVELOPER Unavailable + Uli Lee MD Unavailable Uli Lee MD Unavailable [phone] Uli Lee MD Unavailable [phone] Iamni Bennett BACKROOM ASSOCIATE ORACLE FINANCIALS DEVELOPER Unavailable + Imani Bennett BACKROOM ASSOCIATE ORACLE FINANCIALS DEVELOPER Unavailable + Encounter Details Date Type Department [...] AM CDT Legal Sex Female 4:42 AM PRACTICE NURSE Gender Identity Female 01/26/2020 10:31 AM CDT Sexual Orientation Straight 01/26/2020 10 :31 AM CDT documented as of this encounter Plan of Treatment Upcoming Encounters Date Type Department Care Team (Late st Contact Info) Description 08/19/2024 9:00 AM CDT Office Visit [address] [phone] Imani Bennett, OSWALDO ORACLE FINANCIALS DEVELOPER [address] [place], [place] [address] documented as of this encounter Visit Diagnoses Not on filedocumented in this encounter Additional Health Concerns Infection Onset Date Last Indicated Resolved Time Rule Out COVID-19 04/10/2020 04/10/2020 05/01/2020 11:40 PM PRACTICE NURSE Rule Out COVID-19 07/10/2021 07/10/2021 07/10/2021 9:43 AM PRACTICE NURSE Influenza 07/10/2021 07/10/2021 07/17/2021 11:3 9 PM PRACTICE NURSE Rule Out COVID-19 12/09/2021 12/09/2021 12/09/2021 6:55 PM CDT COVID-19 12/09/2021 12/09/2021 12/30/2021 11:4 1 PM CDT Rule Out COVID-19 07/30/2022 07/30/2022 07/31/2022 5:53 PM PRACTICE NURSE ESBL 07/30/2022 07/30/2022 Rule Out COVID-19 12/31/2022 12/31/2022 12/31/2022 7:30 AM CDT Rule Out C-difficile 02/28/2024 03/04/2024 024 11:39 PM CDT Assessment Noted Time PHQ-9 Depression Total Score: 10 017 7:13 AM PRACTICE NURSE documented as of this encounter Care Teams Armed Security Guard Relationship Specialty Start Date End Date Uli Lee MD [address] [place] [address] 22119 PCP - General 11/19/05 Uli Lee MD [address] [place] [address] 67478 PCP - Assigned PCP 08/18/17 08/05/18 Cherie Tabor RN Lead Music Producer Primary Care - CC 08/22/17 Sherrie Chou RN Clinic Music Producer Primary Care - CC 05/05/1805/06/18 Uli Lee MD [address] [place] [address] 23463 Assigned PCP 08/18/17 07/04/19 Keisha Mtz MD [address] [phone] Assigned PCP 07/05/19 03/12/20 Uli Lee MD [address] [place] [address], [place] [address] Assigned PCP 03/13/20 01/28/21 Imani Holman, ORACLE FINANCIALS DEVELOPER [address] [place] [address], [place] [address] Assigned PCP 01/29/21 06/10/21 Mercedez Hodge MD [address] [id number] [place] [address] Assigned Neuroscience Provider 05/14/21 11/02/22 Uli Lee MD [address] [place] [address] 78036 Assigned PCP 06/11/21 10/14/21 Imani Holman, ORACLE FINANCIALS DEVELOPER [address] [place] [address], [place] [address] Assigned PCP 10/15/21 04/20/22 Uli Lee MD [address] [place] [address] 42090 Assigned PCP 04/21/22 08/24/22 Imani Bennett APRN ORACLE FINANCIALS DEVELOPER [address] [place] [address] 63490 Assigned PCP 08/25/22 09/14/22 Uli Lee MD [address] [place] [address] 31927 Assigned PCP 09/15/22 10/05/22 Imani Bennett APRN ORACLE FINANCIALS DEVELOPER [address] [place] [address] 60988 Assigned PCP 10/06/22 01/18/23 Uli Lee MD [address] [place] [address] 07655 Assigned PCP 01/19/23 05/24/23 Uli Lee MD [address] [place] [address] 59619 Assigned Pain Medication Provider 02/02/23 02/22/23 Uli Lee MD [address] [place] [address] 98206 Assigned Pain Medication Provider 03/16/23 05/31/23 Imani Bennett APRN ORACLE FINANCIALS DEVELOPER [address] [place] [address] 74897 Assigned Pain Medication Provider 06/01/23 06/26/23 Imani Bennett APRN ORACLE FINANCIALS DEVELOPER [address] [place] [address] 29861 Assigned PCP 05/25/23 documented as of this encounter
--- OUTSIDE RECORDS SUMMARY | 2024-08-15 15:15 | XMS_ITS | Encounter Summary ---
Author Organization [place] Address [facility] [place] [address] Care Team Providers Care Post Office Clerk Name Role Phone Uli Lee MD Primary Care Provider [phone] Mercedez Hodge MD Unavailable Uli Lee MD Unavailable [phone] Imani Bennett APRN PAINT ROLLER ASSEMBLER Unavailable + Uli Lee MD Unavailable [phone] Imani Bennett APRN PAINT ROLLER ASSEMBLER Unavailable + Uli Lee MD Unavailable [phone] Uli Lee MD Unavailable [phone] Uli Lee MD Unavailable [phone] Imani Bennett APRN PAINT ROLLER ASSEMBLER Unavailable + Imani Bennett APRN PAINT ROLLER ASSEMBLER Unavailable + Encounter Details Date Type Department Care Team (Late st Contact Info) Description 08/07/2022 [facility] [id number] [place] [address] [address] [facility] [place] [phone] Gerardo Bai PA [address] [place] [address] Social History Tobacco Use Types Packs/Day Years Used Date Smoking Tobacco: Former Cigarettes Q uit: 2020 Smokeless Tobacco: Former Comments:dad smokes outside of house Alcohol Use Standard Drinks/Week Comments Not Currently 0 (1 standard drink = 0.6 oz pur e alcohol) PHQ-2 Answer Date Recorded PHQ-2 Score 1 07/30/2022 [place] Depression Scale Answer Date Recorded Last EPDS Total Score Not on file 07/08/2022 The thought of harming myself has occurred to me . Never 07/08/2022 Comments No Sex and Gender Information Value Date Recorded Sex Assigned at Female 01/26/2020 10:31 AM CDT Legal Sex Female 4:42 AM BAR ASSISTANT Gender Identity Female 01/26/2020 10:31 AM CDT Sexual Orientation Straight 01/26/2020 10 :31 AM CDT COVID-19 Exposure Response Date Recorded In the last 10 days, have yo u been in contact with someone who was confirmed or suspected to have Coronavirus/COVID-19? No / Unsure 08/10/2022 8:49 AM BAR ASSISTANT documented as of this encounter Plan of Treatment Upcoming Encounters Date Type Department Care Team (Late st Contact Info) Description 08/19/2024 9:00 AM CDT Office Visit [address] [phone] Imani Bennett, OSWALDO [address] [address] documented as of this encounter Visit Diagnoses Not on filedocumented in this encounter Additional Health Concerns Infection Onset Date Last Indicated Resolved Time ESBL 07/30/2022 07/30/2022 Rule Out COVID-19 12/31/2022 12/31/2022 12/31/2022 7:30 AM CDT Rule Out C-difficile 02/28/2024 03/04/2024 024 11:39 PM CDT Assessment Noted Time PHQ-9 Depression Total Score: 4 07/30/19 5:35 PM BAR ASSISTANT documented as of this encounter Care Teams Post Office Clerk Relationship Specialty Start Date End Date Uli Lee MD [address] [place] [address] PCP - General 11/19/05 Mercedez Hodge MD [address] [place], [place] [address] [address] Assigned Neuroscience Provider 05/14/21 11/02/22 Uli Lee MD [address] [place] [address] Assigned PCP 04/21/22 08/24/22 Imani Bennett APRN PAINT ROLLER ASSEMBLER [address] [place] [address]98[address] Assigned PCP 08/25/22 09/14/22 Uli Lee MD [address] [place] [address] 57327 Assigned PCP 09/15/22 10/05/22 Imani Bennett APRN PAINT ROLLER ASSEMBLER [address] [place] [address] 45373 Assigned PCP 10/06/22 01/18/23 Uli Lee MD [address] [place] [address]1695 Assigned PCP 01/19/23 05/24/23 Uli Lee MD [address] [place] [address] 71054 Assigned Pain Medication Provider 02/02/23 02/22/23 Uli Lee MD [address] [place] [address] 26031 Assigned Pain Medication Provider 03/16/23 05/31/23 Imani Bennett APRN PAINT ROLLER ASSEMBLER [address] [place] [address]000 Assigned Pain Medication Provider 06/01/23 06/26/23 Imani Bennett APRN PAINT ROLLER ASSEMBLER [address] [place] [address] 29062 Assigned PCP 05/25/23 documented as of this encounter
--- OUTSIDE RECORDS SUMMARY | 2024-08-15 15:15 | XMS_ITS | Encounter Summary ---
Author Organization [place] Address [facility] [place] [address] Care Team Providers Care Neurodiagnostic Technician Name Role Phone Uli Lee MD Primary Care Provider [phone] Uli Lee MD Unavailable [phone] Imani Holman RELOCATION ASSOCIATE Unavailable Mercedez Hodge MD Unavailable Uli Lee MD Unavailable [phone] Imani Holman RELOCATION ASSOCIATE Unavailable [phone] Uli Lee MD Unavailable +[phone] Imani Bennett APRN RELOCATION ASSOCIATE Unavailable + Uli Lee MD Unavailable [phone] Imani Bennett APRN RELOCATION ASSOCIATE Unavailable + Uli Lee MD Unavailable [phone] Uli Lee MD Unavailable [phone] Uli Lee MD Unavailable [phone] Imani Bennett APRN RELOCATION ASSOCIATE Unavailable + Imani Bennett APRN RELOCATION ASSOCIATE Unavailable + Encounter Details Date Type Department Care Team ([facility] Contact Info) Description 10/17/2020 MyC Medical Advice [address] [phone] Radha Khan, RN PROGRESSIVE CARE Social History Tobacco Use Types Packs/Day Years [...] AM CDT Legal Sex Female 4:42 AM LENS POLISHER HAND Gender Identity Female 01/26/2020 10:31 AM CDT Sexual Orientation Straight 01/26/2020 10 :31 AM CDT COVID-19 Exposure Response Date Recorded In the last month, have you been in contact with someone who was confirmed or suspected to have Coronavirus / COVID-19? No / Unsure 10/15/2020 1:45 AM CDT documented as of this encounter Plan of Treatment Upcoming Encounters Date Type Department Care Team ([facility] Contact Info) Description 08/19/2024 9:00 AM CDT Office Visit [address] [phone] Imani Bennett, STRING STUDIES DIRECTOR [address] [phone] documented as of this encounter Visit Diagnoses Not on filedocumented in this encounter Additional Health Concerns Infection Onset Date Last Indicated Resolved Time Rule Out COVID-19 07/10/2021 07/10/2021 07/10/2021 9:43 AM LENS POLISHER HAND Influenza 07/10/2021 07/10/2021 07/17/2021 11:3 9 PM LENS POLISHER HAND Rule Out COVID-19 12/09/2021 12/09/2021 12/09/2021 6:55 PM CDT COVID-19 12/09/2021 12/09/2021 12/30/2021 11:4 1 PM CDT Rule Out COVID-19 07/30/2022 07/30/2022 07/31/2022 5:53 PM LENS POLISHER HAND ESBL 07/30/2022 07/30/2022 Rule Out COVID-19 12/31/2022 12/31/2022 12/31/2022 7:30 AM CDT Rule Out C-difficile 02/28/2024 03/04/2024 024 11:39 PM CDT Assessment Noted Time PHQ-9 Depression Total Score: 10 021 10:57 AM CDT documented as of this encounter Care Teams Neurodiagnostic Technician Relationship Specialty Start Date End Date Uli Lee MD [address] [place] [address]27 PCP - General 11/19/05 Uli Lee MD [address] [place] [address] 39806 Assigned PCP 03/13/20 01/28/21 Imani Holman RELOCATION ASSOCIATE [address] [place] [address] [phone] Assigned PCP 01/29/21 06/10/21 Mercedez Hodge MD [address] [place] [address] [id number] [place] [address] Assigned Neuroscience Provider 05/14/21 11/02/22 Uli Lee MD [address] [place] [address] 28205 Assigned PCP 06/11/21 10/14/21 Imani Holman CNP [address] [place] [address] 43219 Assigned PCP 10/15/21 04/20/22 Uli Lee MD [address] [place] [address], [place] [address] Assigned PCP 04/21/22 08/24/22 Imani Bennett APRN RELOCATION ASSOCIATE [address] [place] [address] 71338 Assigned PCP 08/25/22 09/14/22 Uli Lee MD [address] [place] [address] 70773 Assigned PCP 09/15/22 10/05/22 Imani Bennett APRN RELOCATION ASSOCIATE [address] [place] [address]1451 Assigned PCP 10/06/22 01/18/23 Uli Lee MD [address] [place] [address] 76171 Assigned PCP 01/19/23 05/24/23 Uli Lee MD [address] [place] [address]67 Assigned Pain Medication Provider 02/02/23 02/22/23 Uli Lee MD [address] [place] [address] Assigned Pain Medication Provider 03/16/23 05/31/23 Imani Bennett APRN RELOCATION ASSOCIATE [address] [place] [address] Assigned Pain Medication Provider 06/01/23 06/26/23 Imani Bennett APRN RELOCATION ASSOCIATE [address] [place] [address] Assigned PCP 05/25/23 documented as of this encounter
--- OUTSIDE RECORDS SUMMARY | 2024-08-15 15:15 | XMS_ITS | Encounter Summary ---
Author Organization [place] Address [facility] [place] [address] Care Team Providers Care Timber Girdler Name Role Phone Uli Lee MD Primary Care Provider [phone] Uli Lee MD Unavailable [phone] Imani Holman RECORDING ENGINEER Unavailable Mercedez Hodge MD Unavailable Uli Lee MD Unavailable [phone] Imani Holman RECORDING ENGINEER Unavailable [phone] Uli Lee MD Unavailable [phone] Imani Bennett APRN RECORDING ENGINEER Unavailable + Uli Lee MD Unavailable [phone] Imani Bennett APRN RECORDING ENGINEER Unavailable + Uli Lee MD Unavailable [phone] Uli Lee MD Unavailable [phone] Uli Lee MD Unavailable [phone] Imani Bennett APRN RECORDING ENGINEER Unavailable + Imani Bennett APRN RECORDING ENGINEER Unavailable + Encounter Details Date Type Department Care Team (Late st Contact Info) Description 01/03/2021 MyC Medical Advice [address] [phone] Imani Holman, RECORDING ENGINEER [address] [place], [place] [phone] Social History Tobacco Use Types Packs/Day Years [...] AM CDT Legal Sex Female 4:42 AM SYRUPER Gender Identity Female 01/26/2020 10:31 AM CDT [...] 08/19/2024 9:00 AM CDT Office Visit [address] [phone] Imani Bennett APRN RECORDING ENGINEER [address] [place] [address] [phone] documented as of this encounter Visit Diagnoses Not on filedocumented in this encounter Additional Health Concerns Infection Onset Date Last Indicated Resolved Time Rule Out COVID-19 07/10/2021 07/10/2021 07/10/2021 9:43 AM SYRUPER Influenza 07/10/2021 07/10/2021 07/17/2021 11:3 9 PM SYRUPER Rule Out COVID-19 12/09/2021 12/09/2021 12/09/2021 6:55 PM CDT COVID-19 12/09/2021 12/09/2021 12/30/2021 11:4 1 PM CDT Rule Out COVID-19 07/30/2022 07/30/2022 07/31/2022 5:53 PM SYRUPER ESBL 07/30/2022 07/30/2022 Rule Out COVID-19 12/31/2022 12/31/2022 12/31/2022 7:30 AM CDT Rule Out C-difficile 02/28/2024 03/04/2024 024 11:39 PM CDT Assessment Noted Time PHQ-9 Depression Total Score: 10 021 10:57 AM CDT documented as of this encounter Care Teams Timber Girdler Relationship Specialty Start Date End Date Uli Lee MD [address] [place] [address]99 PCP - General 11/19/05 Uli Lee MD [address] [place] [address] 476322 Assigned PCP 03/13/20 01/28/21 Imani Holman, RECORDING ENGINEER [address] [place] [address] 36465 Assigned PCP 01/29/21 06/10/21 Mercedez Hodge MD [address] [place] [address] [id number] [address] Assigned Neuroscience Provider 05/14/21 11/02/22 Uli Lee MD [address] [place] [address] 00946 Assigned PCP 06/11/21 10/14/21 Imani Holman RECORDING ENGINEER [address] [place] [address], [place] [address] Assigned PCP 10/15/21 04/20/22 Uli Lee MD [address] [place] [address] 42512 Assigned PCP 04/21/22 08/24/22 Imani Bennett APRN RECORDING ENGINEER [address] [place] [address] 21289 Assigned PCP 08/25/22 09/14/22 Uli Lee MD [address] [place] [address] 22704 Assigned PCP 09/15/22 10/05/22 Imani Bennett APRN RECORDING ENGINEER [address] [place] [address] 08543 Assigned PCP 10/06/22 01/18/23 Uli Lee MD [address] [place] [address] 53002 Assigned PCP 01/19/23 05/24/23 Uli Lee MD [address] [place] [address] 15239 Assigned Pain Medication Provider 02/02/23 02/22/23 Uli Lee MD [address] [place] [address] 27968 Assigned Pain Medication Provider 03/16/23 05/31/23 Imani Bennett APRN RECORDING ENGINEER [address] [place] [address] [phone] Assigned Pain Medication Provider 06/01/23 06/26/23 Imani Bennett APRN RECORDING ENGINEER [address] [place] [address] [phone] Assigned PCP 05/25/23 documented as of this encounter
--- OUTSIDE RECORDS SUMMARY | 2024-08-15 15:15 | XMS_ITS | Encounter Summary ---
Author Organization [place] Address [address] [place] [address]. [place] [address] Care Team Providers Care Conduit Mechanic Name Role Phone Uli Lee MD Primary Care Provider [phone] Imani Bennett APRN INSPECTOR WREATH Unavailable + Reason for Visit * Reason Onset Date Comments Call To Schedule Appointment 08/12/2023 Encounter Details Date Type Department Care Team (Late st Contact Info) Description 08/12/[address] [phone] Uli Lee MD [address] [place] [address] Call To Schedule Appointment Social History Tobacco Use Types Packs/Day Years Used Date Smoking Tobacco: Former Cigarettes Q uit: 2020 Smokeless Tobacco: Former Comments:dad smokes outside of house Alcohol Use Standard Drinks/Week Comments Not Currently 0 (1 standard drink = 0.6 oz pur e alcohol) PHQ-2 Answer Date Recorded PHQ-2 Score 2 07/16/2023 Echo Depression Scale Answer Date Recorded Last EPDS [...] AM CDT Legal Sex Female 4:42 AM CLARITY DEVELOPER Gender Identity Female 01/26/2020 10:31 AM [...] [facility] or would you prefer to receive a phone call?: Patient would prefer a phone call Okay to leave a detailed message?: Yes at Home number on file [phone] (home) Call taken on 08/12/2023 at 8:25 AM by Janeen Reynolds documented in this encounter Plan of Treatment Upcoming Encounters Date Type Department Care Team (Late st Contact Info) Description 08/19/2024 9:00 AM CDT Office Visit [address] [phone] Imani Bennett, [facility] [address] [place] [address] documented as of this encounter Visit Diagnoses Not on filedocumented in this encounter Additional Health Concerns Infection Onset Date Last Indicated Resolved Time ESBL 07/30/2022 07/30/2022 Rule Out C-difficile 02/28/2024 03/04/2024 024 11:39 PM CDT Assessment Noted Time PHQ-9 Depression Total Score: 10 024 4:18 PM CLARITY DEVELOPER documented as of this encounter Care Teams Conduit Mechanic Relationship Specialty Start Date End Date Uli Lee MD [address] [place] [address]373 PCP - General 11/19/05 Imani Bennett APRN INSPECTOR WREATH [address] [place] [address] 31954 Assigned PCP 05/25/23 documented as of this encounter
--- OUTSIDE RECORDS SUMMARY | 2024-08-15 15:15 | XMS_ITS | Encounter Summary ---
Author Organization [place] Address [address] [facility] [place] [address] Care Team Providers Care Activities Attendant Name Role Phone Uli Lee MD Primary Care Provider [phone] Mercedez Hodge MD Unavailable Imani Holman MOBILE UI/UX DESIGNER Unavailable [phone] Uli Lee MD Unavailable [phone] Imani Bennett APRN MOBILE UI/UX DESIGNER Unavailable + Uli Lee MD Unavailable [phone] Imani Bennett APRN MOBILE UI/UX DESIGNER Unavailable + Uli Lee MD Unavailable [phone] Uli Lee MD Unavailable [phone] Uli Lee MD Unavailable [phone] Imani Bennett APRN MOBILE UI/UX DESIGNER Unavailable + Imani Bennett APRN MOBILE UI/UX DESIGNER Unavailable + Encounter Details Date Type Department Care Team (Late st Contact Info) Description 12/18/2021 External Order Results [facility] [address] [place] [address] Outside, Provider Social History Tobacco Use Types [...] AM CDT Legal Sex Female 4:42 AM PREPRESS SPECIALIST Gender Identity Female 01/26/2020 10:31 AM CDT Sexual Orientation Straight 01/26/2020 10 :31 AM CDT COVID-19 Exposure Response Date Recorded In the last 10 days, have yo u been in contact with someone who was confirmed or suspected to have Coronavirus/COVID-19? Yes 12/12/2021 8:06 AM CDT documented as of this encounter Plan of Treatment Upcoming Encounters Date Type Department Care Team ([facility] st Contact Info) Description 08/19/2024 9:00 AM CDT Office Visit [address] [phone] Imani Bennett, LINER ASSEMBLER [address] [phone] documented as of this encounter Procedures Procedure [...] (External Result) (12/18/2021 10:00 AM CDT) Pathologist [facility] ABO (External) A NON-I NTERFACED (ONBASE SCANS) [...] Antibody Combo (12/18/2021 10:00 AM CDT) Pathologist [facility] HIV 1&2 Antibody (External) Non Reactive Non Reactive NON-INTERFAC ED (ONBASE SCANS) Blood 12/18/2021 10:0 0 AM CDT Narrative BREEZE PFT - 02/02/2022 9:36 AM CDT Verified by Husam Thompson on 02/02/2022. us Provider Outside LAB - BLOOD ORDERABLES Edited R esult - Final [facility] PFT NON-INTERFACED (ONBASE SCANS) * CBC with Platelets & Differential (12/18/2021 10:00 AM CDT) Pathologist [facility] WBC Count (External) 9.3 3.4 - 10.8 [...] d Result - Final Performing Organization Address [facility]/ZIP Co de Phone Number BREEZE PFT NON-INTERFACED [...] d Result - Final Performing Organization Address [facility] Co de Phone Number BREEZE PFT [...] d Result - Final Performing Organization Address [facility] Co de Phone Number B[facility]ZE PFT NON-INTERFACED (ONBASE SCANS) documented in this encounter Visit Diagnoses Not on filedocumented in this encounter Additional Health Concerns Infection Onset Date Last Indicated Resolved Time COVID-19 12/09/2021 12/09/2021 12/30/2021 11:4 1 PM CDT Rule Out COVID-19 07/30/2022 07/30/2022 07/31/2022 5:53 PM PREPRESS SPECIALIST ESBL 07/30/2022 07/30/2022 Rule Out COVID-19 12/31/2022 12/31/2022 12/31/2022 7:30 AM CDT Rule Out C-difficile 02/28/2024 03/04/2024 024 11:39 PM CDT Assessment Noted Time PHQ-9 Depression Total Score: 8 11/21/19 22 4:22 PM CDT documented as of this encounter Care Teams Activities Attendant Relationship Specialty Start Date End Date Uli Lee MD [address] [place] [address] 12575 PCP - General 11/19/05 Mercedez Hodge MD [address] [place] [address] [id number] [place] [address] Assigned Neuroscience Provider 05/14/21 11/02/22 Imani Holman MOBILE UI/UX DESIGNER [address] [place] [address] 94492 Assigned PCP 10/15/21 04/20/22 Uli Lee MD [address] [place] [address] 08690 Assigned PCP 04/21/22 08/24/22 Imani Bennett APRN MOBILE UI/UX DESIGNER [address] [place] [address] 33059 Assigned PCP 08/25/22 09/14/22 Uli Lee MD [address] [place] [address] 13005 Assigned PCP 09/15/22 10/05/22 Imani Bennett APRN MOBILE UI/UX DESIGNER [address] [place] [address] 68239 Assigned PCP 10/06/22 01/18/23 Uli Lee MD [address] [place] [address], [place] [address] Assigned PCP 01/19/23 05/24/23 Uli Lee MD [address] [place] [address], [place] [address] Assigned Pain Medication Provider 02/02/23 02/22/23 Uli Lee MD [address] [place] [address], [place] [address] Assigned Pain Medication Provider 03/16/23 05/31/23 Imani Bennett APRN MOBILE UI/UX DESIGNER [address] [place] [address], [place] [address] Assigned Pain Medication Provider 06/01/23 06/26/23 Imani Bennett APRN MOBILE UI/UX DESIGNER [address] [place] [address], [place] [address] Assigned PCP 05/25/23 documented as of this encounter
--- OUTSIDE RECORDS SUMMARY | 2024-08-15 15:15 | XMS_ITS | Clinical Summary ---
Author Organization [place] Address [address] [facility] [place] [address] Care Team Providers Care Information Management Officer Name Role Phone Robbie Lee MD Primary Care Provider [phone] Imani Bennett APRN [employer] Unavailable + Allergies Active Allergy Reactions Criticality [...] 4 tablet 3 Active vitamin D2 (ERGOCALCIFEROL) 59287 units (1250 mcg) capsuleIndication s:Recurrent major depressive [...] Department Care Team Description 08/04/2024 11:30 AM CAR STOWER Virtual Visit [address] [phone] Volodymyr Cabral MD Acute tonsillitis, unspecified etiology (Primary Dx) 06/10/2024 2:38 PM CAR STOWER - 06/10/2024 11:59 PM CAR STOWER Hospital Encounter [facility] [address], [address] [place] [phone] Imani Bennett APRN [employer] Breast pain; Rash; Nipple discharge Discharge Disposition: Home or Self Care 06/10/2024 2:37 PM CAR STOWER Hospital Encounter [facility] [address], [address] [place] [phone] Imani Bennett APRN [employer] Breast pain; Rash; Nipple discharge Discharge Disposition: [...] Answer Date Recorded PHQ-2 Score 2 08/04/2024 [place] Depression Scale Answer Date Recorded Last [...] AM CDT Legal Sex Female 4:42 AM CAR STOWER Gender Identity Female 01/26/2020 10:31 AM CDT [...] Description 08/19/2024 9:00 AM CDT Office Visit [address] [phone] Imani Bennett, RESTAURANT RECRUITER [facility] [address] [place] [address] Health Maintenance Due Date Last Done Comments [...] BILATERAL W/ BALBIR Routine 06/10/2024 3:37 PM CAR STOWER Breast pain Rash Nipple discharge US BREAST BILATERAL LIMITED 1-3 QUADRANTS Routine 06/10/2024 3:36 PM CAR STOWER Breast pain Rash Nipple discharge BASIC METABOLIC PANEL Routine 02/28/2024 2:26 PM CDT Diarrhea of presumed infectious origin CHLAMYDIA TRACHOMATIS/NEISSERI A GONORRHOEAE BY PCR STAT 09/17/2023 9:00 PM CDT COLONOSCOPY - HIM SCAN 04/23/2023 12:00 AM CAR STOWER HIV ANTIGEN ANTIBODY COMBO Routine 12/18/2021 10:00 AM CDT HEPATITIS C ANTIBODY (EXTERNAL RESULT) Routine 12/18/2021 10:00 AM CDT PAP IMAGED THIN LAYER SCREEN Routine 07/03/2018 12:55 PM CAR STOWER Encounter for visit ASTHMA ACTION PLAN Routine 10/11/2016 12 :06 PM CDT from Last 3 Months or Most Recently Relevant to Health Maintenance Results * MA Diagnostic Bilateral w/ Balbir (06/10/2024 3:37 PM CAR STOWER) Anatomical Region Laterality Modality Breast Bilateral Mammography Impressions 06/10/2024 3:46 PM CAR STOWER IMPRESSION: ACR BI-RADS CATEGORY: 1 - Negative. RECOMMENDED FOLLOW-UP: Routine yearly mammography beginning at age 40 or as discussed with your provider. Any further management of her ongoing breast symptoms can be based on clinical grounds. DAKOTA MENDOZA MD Narrative 06/10/2024 3:46 PM CAR STOWER EXAM: MA DIAGNOSTIC BILATERAL W/ BALBIR, US [...] malignancy in either breast. us Imani Bennett RESTAURANT RECRUITER [employer] IMG MAMMOGRAPHY OR DERABLES Final Result * US Breast Bilateral Limited 1-3 Quadrants (06/10/2024 3:36 PM CAR STOWER) Anatomical Region Laterality Modality Breast Bilateral Ultrasound Impressions 06/10/2024 3:46 PM CAR STOWER IMPRESSION: ACR BI-RADS CATEGORY: 1 - Negative. RECOMMENDED FOLLOW-UP: Routine yearly mammography beginning at age 40 or as discussed with your provider. Any further management of her ongoing breast symptoms can be based on clinical grounds. DAKOTA MENDOZA MD Narrative 06/10/2024 3:46 PM CAR STOWER EXAM: MA DIAGNOSTIC BILATERAL W/ BALBIR, US [...] in either breast. us Imani Cherelle Bennett RESTAURANT RECRUITER [employer] IMG US ORDERABLES Edited * Basic metabolic panel (Ca, Cl, CO2, Creat, Gluc, K, Na, BUN) (02/28/2024 2:26 PM CDT) Pathologist [facility] Sodium 137 135 - 145 mmol/L 02/29/2024 [...] - BLOOD ORDERABLES Final Result [facility] [address] [facility], [address] [place] [address] * Chlamydia trachomatis/Neisseria gonorrhoeae by PCR (09/17/2023 9:00 PM CDT) Chlamydia Trachomatis Negative Negative 09/18/2023 10:57 AM CDT [facility] Comment: Negative for C. trachomatis rRNA by blind hooker mediated amplification. A negative result by blind hooker mediated amplification does not preclude the presence of infection because results are dependent on proper and adequate collection, absence of inhibitors and sufficient rRNA to be detected. Neisseria gonorrhoeae Negative Negative 09/18/2023 10:57 AM CDT [facility] Comment:Negative for N. gono rrhoeae rRNA by blind hooker mediated amplification. A negative result by blind hooker mediated amplification does not preclude the presence of C. trachomatis infection because results are dependent on proper and adequate collection, absence of inhibitors and sufficient rRNA to be detected. Swab VAGINAL STRUCTURE / Unknown Non-blood Collection / Unknown 09/17/2023 9:00 PM CDT 09/17/2023 9:08 PM CDT us Anna Gee DO LAB - MICRO GENERAL ORDERA BLES Final Result [facility] Inf. Diseases Diag. Lab [address] [facility], [address] [place] [address] * COLONOSCOPY - HIM SCAN (04/23/2023 12:00 AM CAR STOWER) 04/23/2023 us Provider Outside PROCEDURES Final Result [...] d Result - Final Performing Organization Address City/[facility]/ZIP Co de Phone Number SHARAEZE PFT NON-INTERFACED [...] R esult - Final Performing Organization Address [facility] Co de Phone Number NITESH PFT NON-INTERFACED (ONBASE SCANS) * Pap imaged thin layer screen only - recommended age 21 - 24 years (07/03/2018 12:55 PM CAR STOWER) PAP ALETHA Castillo Report Patient Name: ANGIE HALE MR#: [id number] Specimen #: [id number] Collected: 07/03/2018 Received: 07/04/2018 Reported: 07/07/2018 15:26 [...] JAMES Herrera (ASCP) Processed and screened at [facility] CLINICAL HISTORY: Post-, A previous normal pap Date of Last Pap: 12/31/2015, Papanicolaou Test Limitations: Cervical cytology is a screening test with limited sensitivity; regular screening is critical for cancer prevention; Pap tests are primarily effective for the diagnosis/preventi on of squamous cell carcinoma, not adenocarcinomas or other cancers. 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
--- OUTSIDE RECORDS SUMMARY | 2024-08-15 15:15 | XMS_ITS | Encounter Summary ---
Author Organization [place] Address [address] [place] [address] Care Team Providers Care Cinnamon Grinder Name Role Phone Uli Lee MD Primary Care Provider [phone] sSherrie RN Unavailable [phone] Uli Lee MD Unavailable [phone] Uli Lee MD Unavailable [phone] Keisha Mtz MD Unavailable [phone] Uli Lee MD Unavailable [phone] Imani Holman WEB CONTENT COORDINATOR Unavailable Mercedez Hodge MD Unavailable Uli Lee MD Unavailable [phone] Imani Holman WEB CONTENT COORDINATOR Unavailable Uli Lee MD Unavailable [phone] Imani Bennett APRN WEB CONTENT COORDINATOR Unavailable + Uli Lee MD Unavailable [phone] Imani Bennett APRN WEB CONTENT COORDINATOR Unavailable + Uli Lee MD Unavailable Uli Lee MD Unavailable [phone] Uli Lee MD Unavailable [phone] Imani Bennett APRN WEB CONTENT COORDINATOR Unavailable + Imani Bennett APRN WEB CONTENT COORDINATOR Unavailable + Reason for Visit * Reason Onset Date Comments Panel Management 11/20/2017 ACT Encounter Details Date Type Department Care Team (Late Contact Info) Description 11/20/[address] [phone] Uli Lee MD [address] [place] [address] Panel Management (ACT) Social History Tobacco [...] AM CDT Legal Sex Female 4:42 AM NURSING INFORMATICS CLINICAL ANALYST Gender Identity Female 01/26/2020 10:31 AM [...] Description 08/19/2024 9:00 AM CDT Office Visit [address] [phone] Imani Bennett, OSWALDO WEB CONTENT COORDINATOR [address] [place], [place] [address] documented as of this encounter Visit Diagnoses Not on filedocumented in this encounter Additional Health Concerns Infection Onset Date Last Indicated Resolved Time Rule Out COVID-19 04/10/2020 04/10/2020 05/01/2020 11:40 PM NURSING INFORMATICS CLINICAL ANALYST Rule Out COVID-19 07/10/2021 07/10/2021 07/10/2021 9:43 AM NURSING INFORMATICS CLINICAL ANALYST Influenza 07/10/2021 07/10/2021 07/17/2021 11:3 9 PM NURSING INFORMATICS CLINICAL ANALYST Rule Out COVID-19 12/09/2021 12/09/2021 12/09/2021 6:55 PM CDT COVID-19 12/09/2021 12/09/2021 12/30/2021 11:4 1 PM CDT Rule Out COVID-19 07/30/2022 07/30/2022 07/31/2022 5:53 PM NURSING INFORMATICS CLINICAL ANALYST ESBL 07/30/2022 07/30/2022 Rule Out COVID-19 12/31/2022 12/31/2022 12/31/2022 7:30 AM CDT Rule Out C-difficile 02/28/2024 03/04/2024 024 11:39 PM CDT Assessment Noted Time PHQ-9 Depression Total Score: 18 06 018 7:11 AM CDT documented as of this encounter Care Teams Cinnamon Grinder Relationship Specialty Start Date End Date Uli Lee MD [address] [place] [address] [phone] PCP - General 11/19/05 Uli Lee MD [address] [place] [address] 654122 PCP - Assigned PCP 08/18/17 08/05/[address] [facility] [address] Deputy Primary Care - CC 05/05/1805/06/18 Uli Lee MD [address] [place] [address] Assigned PCP 08/18/17 07/04/19 Keisha Mtz MD [address] [phone] Assigned PCP 07/05/19 03/12/20 Uli Lee MD [address] [place] [address] 447[address] Assigned PCP 03/13/20 01/28/21 Imani Holman, WEB CONTENT COORDINATOR [address] [place] [address] Assigned PCP 01/29/21 06/10/21 Mercedez Hodge MD [address] [place] [address] [address] Assigned Neuroscience Provider 05/14/21 11/02/22 Uli Lee MD [address] [place] [address] 29673 Assigned PCP 06/11/21 10/14/21 Imani Holman, WEB CONTENT COORDINATOR [address] [place] [address] 96673 Assigned PCP 10/15/21 04/20/22 Uli Lee MD [address] [place] [address] 98[address] Assigned PCP 04/21/22 08/24/22 Imani Bennett APRN WEB CONTENT COORDINATOR [address] [place] [address] 76[address] Assigned PCP 08/25/22 09/14/22 Uli Lee MD [address] [place] [address] Assigned PCP 09/15/22 10/05/22 Imani Bennett APRN WEB CONTENT COORDINATOR [address] [place] [address] Assigned PCP 10/06/22 01/18/23 Uli Lee MD [address] [place] [address] 69[address] Assigned PCP 01/19/23 05/24/23 Uli Lee MD [address] [place] [address] Assigned Pain Medication Provider 02/02/23 02/22/23 Uli Lee MD [address] [place] [address] Assigned Pain Medication Provider 03/16/23 05/31/23 Imani Bennett APRN WEB CONTENT COORDINATOR [address] [place] [address] Assigned Pain Medication Provider 06/01/23 06/26/23 Imani Bennett APRN WEB CONTENT COORDINATOR [facility] [place] [address] Assigned PCP 05/25/23 documented as of this encounter
--- OUTSIDE RECORDS SUMMARY | 2024-08-15 15:15 | XMS_ITS | Clinical Summary ---
[facility] Address [address] [place] [address] Care Team Providers Care Peripatologist Name Role Phone Uli Lee MD Primary Care Provider [phone] Source Comments You are receiving this document as you are listed as the primary care provider,follow-up provider, or the patient has been referred to you for consultation.This is in compliance with the Medicare and[facility] EHR Incentive Program,which states Providers who transition their patient to another setting of careor provider of care or refers their patient to another provider of care shouldprovide summary care record for each transition of care or referral. [employer] Allergies Active Allergy Reactions Criticality Noted Date [...] Detected Not Detected 11/20/2021 12:59 PM CDT [facility] N. gonorrhoeae STD Not Detected Not Detected 11/20/2021 12:59 PM CDT [facility] Swab STD SPECIMEN FROM VAGINA / Unknown Non-blood Collection / Unknown 11/18/2021 12:43 PM CDT 11/18/2021 12:50 PM CDT Narrative [facility] - 11/20/2021 12:59 PM CDT Test performed by Milk Receiver Mediated Amplification (TMA). us Sharita Tay MD LAB_1 Final Result [facility] [address] [address] [phone] * LAB HIV-1 p24 AND HIV-1/HIV-2 ANTIBODIES (09/30/2017 3:22 PM CDT) HIV-1 p24 Ag and HIV-1/HIV-2 Ab Nonreactive Nonreactive PN SOFT 09/30/2017 3:22 PM CDT 09/30/2017 9:16 PM CDT Narrative PN SOFT - 09/30/2017 9:56 PM CDT Performed at [address] [address] CLIA number [id number] us Jim Dale MD LAB_1 Final Result PN SOFT [address] [place] [address] from Last 3 Months or Most Recently Relevant to Health Maintenance Insurance [facility] Care Teams Peripatologist Relationship Specialty Start Date End Date Uli Lee MD [address] [place] [address] PCP - General 11/25/14
--- OUTSIDE RECORDS SUMMARY | 2024-08-15 15:15 | XMS_ITS | Encounter Summary ---
Author Organization [place] Address [facility] [place] [address] Care Team Providers Care Spine Surgeon Name Role Phone Uli Lee MD Primary Care Provider [phone] Uli Lee MD Unavailable [phone] Imani Holman PIZZA DELIVERY DRIVER Unavailable Mercedez Hodge MD Unavailable Uli Lee MD Unavailable [phone] Imani Holman PIZZA DELIVERY DRIVER Unavailable [phone] Uli Lee MD Unavailable [phone] Imani Bennett APRN PIZZA DELIVERY DRIVER Unavailable + Uli Lee MD Unavailable [phone] Imani Bennett APRN PIZZA DELIVERY DRIVER Unavailable + Uli Lee MD Unavailable [phone] Uli Lee MD Unavailable [phone] Uli Lee MD Unavailable [phone] Imani Bennett APRN PIZZA DELIVERY DRIVER Unavailable + Imani Bennett APRN PIZZA DELIVERY DRIVER Unavailable + Encounter Details Date Type Department Care Team (Late st Contact Info) Description 01/20/2021 MyC Medical Advice [place] [address] [place] [phone] Katia Dale RN Social History Tobacco Use [...] AM CDT Legal Sex Female 4:42 AM OFFICE ASSISTANT Gender Identity Female 01/26/2020 10:31 AM [...] Description 08/19/2024 9:00 AM CDT Office Visit [address] [phone] Imani Bennett, RING STRIKER [address] [address] documented as of this encounter Visit Diagnoses Not on filedocumented in this encounter Additional Health Concerns Infection Onset Date Last Indicated Resolved Time Rule Out COVID-19 07/10/2021 07/10/2021 07/10/2021 9:43 AM OFFICE ASSISTANT Influenza 07/10/2021 07/10/2021 07/17/2021 11:3 9 PM OFFICE ASSISTANT Rule Out COVID-19 12/09/2021 12/09/2021 12/09/2021 6:55 PM CDT COVID-19 12/09/2021 12/09/2021 12/30/2021 11:4 1 PM CDT Rule Out COVID-19 07/30/2022 07/30/2022 07/31/2022 5:53 PM OFFICE ASSISTANT ESBL 07/30/2022 07/30/2022 Rule Out COVID-19 12/31/2022 12/31/2022 12/31/2022 7:30 AM CDT Rule Out C-difficile 02/28/2024 03/04/2024 024 11:39 PM CDT Assessment Noted Time PHQ-9 Depression Total Score: 10 021 10:57 AM CDT documented as of this encounter Care Teams Spine Surgeon Relationship Specialty Start Date End Date Uli Lee MD [address] [place] [address] PCP - General 11/19/05 Uli Lee MD [address] [place] [address] Assigned PCP 03/13/20 01/28/21 Imani Holman PIZZA DELIVERY DRIVER [address] [place] [address] Assigned PCP 01/29/21 06/10/21 Mercedez Hodge MD [address] [place], [place] [id number] [address] Assigned Neuroscience Provider 05/14/21 11/02/22 Uli Lee MD [address] [place] [address] Assigned PCP 06/11/21 10/14/21 Imani Holman CNP [address] [place] [address] Assigned PCP 10/15/21 04/20/22 Uli Lee MD [address] [place] [address] Assigned PCP 04/21/22 08/24/22 Imani Bennett APRN PIZZA DELIVERY DRIVER [address] [place] [address] Assigned PCP 08/25/22 09/14/22 Uli Lee MD [address] [place] [address] Assigned PCP 09/15/22 10/05/22 Imani Bennett APRN PIZZA DELIVERY DRIVER [address] [place] [address] Assigned PCP 10/06/22 01/18/23 Uli Lee MD [address] [place] [address] Assigned PCP 01/19/23 05/24/23 Uli Lee MD [address] [place] [address] Assigned Pain Medication Provider 02/02/23 02/22/23 Uli Lee MD [address] [place] [address] Assigned Pain Medication Provider 03/16/23 05/31/23 Imani Bennett APRN PIZZA DELIVERY DRIVER [facility] [place] [address] Assigned Pain Medication Provider 06/01/23 06/26/23 Imani Bennett APRN PIZZA DELIVERY DRIVER [address] [place] [address] Assigned PCP 05/25/23 documented as of this encounter
--- OUTSIDE RECORDS SUMMARY | 2024-08-15 15:15 | XMS_ITS | Encounter Summary ---
Author Organization [place] Address [address] [place] [address] Care Team Providers Care Green Chain Puller Name Role Phone Uli Lee MD Primary Care Provider [phone] Mercedez Hodge MD Unavailable Uli Lee MD Unavailable [phone] Imani Holman WANIGAN CLERK Unavailable Uli Lee MD Unavailable [phone] Imani Bennett APRN WANIGAN CLERK Unavailable + Uli Lee MD Unavailable [phone] Imani Bennett APRN WANIGAN CLERK Unavailable + Uli Lee MD Unavailable [phone] Uli Lee MD Unavailable [phone] Uli Lee MD Unavailable [phone] Imani Bennett APRN WANIGAN CLERK Unavailable + Imani Bennett APRN WANIGAN CLERK Unavailable + Encounter Details Date Type [...] AM CDT Legal Sex Female 4:42 AM IGNITER ASSEMBLER Gender Identity Female 01/26/2020 10:31 AM CDT Sexual Orientation Straight 01/26/2020 10 :31 AM CDT COVID-19 Exposure Response Date Recorded In the last month, have you been in contact with someone who was confirmed or suspected to have Coronavirus / COVID-19? No / Unsure 08/05/2021 2:35 PM IGNITER ASSEMBLER documented as of this encounter Plan of Treatment Upcoming Encounters Date Type Department Care Team (Late st Contact Info) Description 08/19/2024 9:00 AM CDT Office Visit [address] [phone] Imani Bennett, OSWALDO [address] [id number] documented as of this encounter Visit Diagnoses Not on filedocumented in this encounter Additional Health Concerns Infection Onset Date Last Indicated Resolved Time Rule Out COVID-19 12/09/2021 12/09/2021 12/09/2021 6:55 PM CDT COVID-19 12/09/2021 12/09/2021 12/30/2021 11:4 1 PM CDT Rule Out COVID-19 07/30/2022 07/30/2022 07/31/2022 5:53 PM IGNITER ASSEMBLER ESBL 07/30/2022 07/30/2022 Rule Out COVID-19 12/31/2022 12/31/2022 12/31/2022 7:30 AM CDT Rule Out C-difficile 02/28/2024 03/04/20242 024 11:39 PM CDT Assessment Noted Time PHQ-9 Depression Total Score: 11 021 7:03 AM IGNITER ASSEMBLER documented as of this encounter Care Teams Green Chain Puller Relationship Specialty Start Date End Date Uli Lee MD [address] [place] [address] PCP - General 11/19/05 Mercedez Hodge MD [address] [place], [place] [id number] [place] [address] Assigned Neuroscience Provider 05/14/21 11/02/22 Uli Lee MD [address] [place] [address] Assigned PCP 06/11/21 10/14/21 Imani Holman CNP [address] [place] [address] Assigned PCP 10/15/21 04/20/22 Uli Lee MD [address] [place] [address] Assigned PCP 04/21/22 08/24/22 Imani Bennett APRN WANIGAN CLERK [address] [place] [address] Assigned PCP 08/25/22 09/14/22 Uli Lee MD [address] [place] [address] Assigned PCP 09/15/22 10/05/22 Imani Bennett APRN WANIGAN CLERK [facility] [place] [address] Assigned PCP 10/06/22 01/18/23 Uli Lee MD [address] [place] [address], [place] [address] Assigned PCP 01/19/23 05/24/23 Uli Lee MD [address] [place] [address], [place] [address] Assigned Pain Medication Provider 02/02/23 02/22/23 Uli Lee MD [address] [place] [address], [place] [address] Assigned Pain Medication Provider 03/16/23 05/31/23 Imani Bennett APRN WANIGAN CLERK [address] [place] [address], [place] [address] Assigned Pain Medication Provider 06/01/23 06/26/23 Imani Bennett APRN WANIGAN CLERK [address] [place] [address], [place] [address] Assigned PCP 05/25/23 documented as of this encounter
--- OUTSIDE RECORDS SUMMARY | 2024-08-15 15:15 | XMS_ITS | Clinical Summary ---
Author Organization [facility] Address [address] [place] [address] Care Team Providers Care Emergency Services Dispatcher Name Role Phone Uli Lee MD Primary Care Provider [phone] Allergies Active Allergy Reactions Criticality Noted Date [...] on file Legal Sex Female 6:57 AM FURNACE FEEDER Gender Identity Not on file Sexual Orientation [...] 170.2 cm (5' 7) 05/30/2023 3:58 PM FURNACE FEEDER Body Mass Index 29.13 05/30/2023 3:58 PM FURNACE FEEDER Plan of Treatment Health Maintenance Due Date [...] patient's age to complete this topic Insurance [facility] [employer] Advance Directives * Full Code (Latest Code Status on File) Date Activated Date Inactivated Comments 04/13/2020 7:31 AM 04/13/2020 1:56 PM Question Answer Comments Code Status Discussion: Not Discussed * Full Code Date Activated Date Inactivated Comments 11/07/2015 6:02 AM 11/07/2015 12:22 PM * Full Code Date Activated Date Inactivated Comments 12/02/2014 1:23 PM 12/02/2014 6:55 PM Care Teams Emergency Services Dispatcher Relationship Specialty Start Date End Date Uli Lee MD [address] [place] [address] PCP - General Family Practice 09/02/11
--- OUTSIDE RECORDS SUMMARY | 2024-08-15 15:15 | XMS_ITS | Encounter Summary ---
Author Organization [place] Address [address] 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 [facility] [address] [place] [phone] [place] [address] [place], [place] [phone] Acute tonsillitis, unspecified etiology (Primary Dx) Social History Tobacco Use Types Packs/Day Years Used Date Smoking Tobacco: Former Cigarettes Q uit: 2020 Smokeless Tobacco: Former Comments:dad smokes outside of house Alcohol Use Standard Drinks/Week Comments Not Currently 0 (1 standard drink = 0.6 oz pur e alcohol) PHQ-2 Answer Date Recorded PHQ-2 Score 2 08/04/2024 [place] Depression Scale Answer Date Recorded Last EPDS [...] AM CDT Legal Sex Female 4:42 AM 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 Gender Identity Female 01/26/2020 10:31 AM CDT [...] be resent by: Text to cell phone: [phone] Will anyone else be joining your video [...] Accompanied by self HPI ED/UC Followup: Facility: [facility] Date of visit: 07/22/2024 Reason for visit: [...] location): On-site Platform used for Video Visit: [email or web address] 12 minutes spent by me on the date of the encounter doing chart review, patient visit, and documentation (unfortunately the [facility] record is not available on Care Everywhere) Signed Electronically by: Volodymyr Cabral MD If patient has telephone visit, have they been educated on video visit as preferred visit method and offered to change to video visit? yes Instructions Relayed to Patient by Virtual Roomer: Patient is active on [employer]: Relayed following to patient: It looks like you are active on [employer], are you able to join the visit this way? If not, do you need us to send you a link now or would you like your provider to send a link via text or email when they are ready to initiate the visit? Patient Confirmed they will join visit via: [employer] Reminded patient to ensure they were logged on to virtual visit by arrival time listed. Asked if patient has flexibility to initiate visit sooner than arrival time: patient stated yes, documented in appointment notes availability to initiate visit earlier than arrival time If pediatric virtual visit, ensured pediatric patient along with parent/guardian will be present for video visit. Patient offered the website [email or web address] and/or phone number to [employer] Help line: [phone] Answers submitted by the patient for this [...] Upcoming Encounters Date Type Department Care Team ([facility] st Contact Info) Description 08/19/2024 9:00 AM CDT Office Visit [address] [phone] Imani Bennett APRN ICE CREAM SHOP ASSOCIATE [address] [place] [address] documented as of this encounter Visit Diagnoses Diagnosis Acute tonsillitis, unspecified etiology- Primary documented in this encounter Additional Health Concerns Infection Onset 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
== END 2024-08-15 16:12 | disposition home or self-care (01) ==
PROVIDERS: Emergency Provider Family Medicine
DX: M54.6 Pain in thoracic spine (principal)
CPT/HCPCS: 72128; 96372; 99283; 99284; J1885

== ENCOUNTER 2024-09-08 12:54 | Outpatient (CLI) | payer MEDICAID, SELFPAY | END 2024-09-08 12:55 | disposition home or self-care (01) | PROVIDERS: Visit Provider Emergency Medicine Emergency Medical Services | DX: R51.9 Headache, unspecified (principal); M54.2 Cervicalgia; H53.8 Other visual disturbances | CPT/HCPCS: A0425; A0433 ==